=== PATIENT | female | born 1950 | race Caucasian/White ===

== ENCOUNTER 2023-04-29 17:53 | Emergency (ER) | payer BC, MEDICARE, SELFPAY ==
--- NOTE | 2023-04-29 18:04 | XR_ITS ---
The [address] [address] Patient Name: BRANDEN AMES MRN: [id number] date: 1950 Sex: F Assigned Patient Location: ED.MAIN Current Patient Location: ER Accession/Order Number: [id number] Exam Date: 04/29/2023 18:18 Report Date: 04/29/2023 18:43 At the request of: MICHAEL CARDOZO Procedure: XR hand RT min 3V EXAM: XR hand RT min 3V HISTORY: Hand pain COMPARISON: None. TECHNIQUE: 3 views FINDINGS: IMPRESSION: Dorsal subcutaneous soft tissue edema overlying the metacarpophalangeal joints/metacarpal heads. No visualized fracture, dislocation, subluxation or osseous lesion. Joint spaces are unremarkable for patient's age. Congenitally short fifth metacarpal. Electronically authenticated by: WALT PRESTON Date: 04/29/2023 18:43
[2023-04-29 18:05] VITALS: BP 126/68; PULSE 99; RESP 18; TEMP 36.8; O2SAT 98; BMI 21.8
--- NOTE | 2023-04-29 18:05 | ED_ITS ---
HPI - Extremity Injury (Upper) General Chief Complaint: Extremity Injury, Upper Stated Complaint: Right Hand Injury Time Seen by Provider: 04/29/23 17:54 History of Present Illness HPI narrative: patient is a 73-year-old female who presents to the emergency department for the evaluation of an injury to the right hand. She is right-hand dominant. Three days ago she struck the dorsum of her right hand on a plate accidentally. She has had pain and swelling over the 2nd, 3rd, 4th MCP joints. She denies any numbness or tingling to the hand. No other associated injuries. she takes an 81 mg aspirin daily, no other blood thinners. Related Data Home Medications Medication Instructions Recorded Confirmed aspirin 81 mg tablet,delayed 81 mg PO DAILY 04/29/23 04/29/23 release (Adult Aspirin Regimen) atenolol 25 mg tablet mg 04/29/23 simvastatin 40 mg tablet 40 mg PO DAILY 04/29/23 04/29/23 Allergies Allergy/AdvReac Type Severity Reaction Status Date / Time No Known Drug Allergies Allergy Verified 04/29/23 18:10 Review of Systems ROS Constitutional Denies: fever or chills Ears, nose, mouth, and throat Denies: throat pain Cardiovascular Denies: chest pain Respiratory Denies: shortness of breath or cough Gastrointestinal Denies: nausea or vomiting Musculoskeletal Reports: extremity pain and extremity swelling; Denies: back pain Integumentary/Breast Denies: rash Neurological Denies: headache Hematologic/Lymphatic Denies: easy bruising PFSH PFSH Social History Smoking status: Current every day smoker Exam Narrative Exam Narrative: Gen.: Awake, alert, in no distress Head: Normocephalic, atraumatic ENT: Moist mucous membranes Respiratory: No respiratory distress Extremities: Moves extremities equally, dorsum of the right hand with swelling and tenderness over the MCP joints of the 2nd, 3rd, 4th fingers. 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 No decrease in sensation to the fingertips. No tenderness of the proximal right hand or wrist. 2+ right radial pulse. Psych: Normal mood and affect Neuro: No focal neuro deficit Skin: Warm, dry, intact Constitutional Vital Signs, click to edit/add: Last Vital Signs Temp 98.2 F 04/29/23 18:05 Pulse 99 H 04/29/23 18:05 Resp 18 04/29/23 18:05 BP 126/68 04/29/23 18:05 Pulse Ox 98 04/29/23 18:05 O2 Del Method Room Air 04/29/23 18:05 Course Vital Signs Vital signs: Vital Signs Temperature 98.2 F 04/29/23 18:05 Pulse Rate 99 H 04/29/23 18:05 Respiratory Rate 18 04/29/23 18:05 Blood Pressure 126/68 04/29/23 18:05 Pulse Oximetry 98 04/29/23 18:05 Oxygen Delivery Method Room Air 04/29/23 18:05 Temperature 98.2 F 04/29/23 18:05 Pulse Rate 99 H 04/29/23 18:05 Respiratory Rate 18 04/29/23 18:05 Blood Pressure 126/68 04/29/23 18:05 Pulse Oximetry 98 04/29/23 18:05 Oxygen Delivery Method Room Air 04/29/23 18:05 MDM - Extremity Injury (Upper) MDM Narrative Medical decision making narrative: x-rays of the right hand with no evidence of fracture or dislocation. Patient placed in an Sanjay wrap and remains neurovascularly intact. Rest, ice, elevate. Follow-up with PCP and return to the Emergency Room if symptoms change or worsen. Medical Records Attestation: I reviewed the patient's medical records. Imaging Data XR hand: Attestation: I have reviewed the pertinent imaging results. Radiologist's impression: Procedure: XR hand RT min 3V EXAM: XR hand RT min 3V HISTORY: Hand pain COMPARISON: None. TECHNIQUE: 3 views FINDINGS: IMPRESSION: Dorsal subcutaneous soft tissue edema overlying the metacarpophalangeal joints/metacarpal heads. No visualized fracture, dislocation, subluxation or osseous lesion. Joint spaces are unremarkable for patient's age. Congenitally short fifth metacarpal. Electronically authenticated by: WALT PRESTON Date: 04/29/2023 18:43 Discharge Plan Discharge Chief Complaint: Extremity Injury, Upper Clinical Impression: Contusion of hand, right Patient Disposition: Home, Self-Care Time of Disposition Decision: 18:50 Condition: Good Prescriptions / Home Meds: No Action atenolol 25 mg tablet aspirin [Adult Aspirin Regimen] 81 mg tablet,delayed release (DR/EC) 81 mg PO DAILY simvastatin 40 mg tablet 40 mg PO DAILY Instructions: Contusion in Adults (ED) Stand Alone Forms: Portal Instructions Referrals: MILAD VALENZUELA [Primary Care Provider] - 1 week Discharge Date/Time: 04/29/23 19:11
== END 2023-04-29 19:11 | disposition home or self-care (01) ==
PROVIDERS: Emergency Provider Emergency Medicine; PCP Nurse Practitioner Family
DX: S60.221A Contusion of right hand, initial encounter (principal); W22.8XXA Striking against or struck by other objects, initial encounter; Z79.82 Long term (current) use of aspirin; F17.210 Nicotine dependence, cigarettes, uncomplicated
CPT/HCPCS: 73130; 99283

== ENCOUNTER 2024-03-27 12:04 | Outpatient (OUT) | payer MEDICARE, SELFPAY ==
--- OUTSIDE RECORDS SUMMARY | 2024-03-27 12:23 | XMS_ITS | CCD ---
Author Organization [facility] Care Team Providers Care Neonatal Intensive Care Unit Nurse Name Role Phone Joss Han Unavailable Unavailable Joss Han Unavailable Unavailable October, Shar Unavailable Unavailable Maritza Lake Unavailable Maritza Lake Unavailable MARITZA LAKE Primary Care Unavailable MARITZA LAKE Admitting Unavailable MARITZA LAKE Attending Unavailable MARITZA LAKE Consulting Unavailable MARITZA LAKE Primary Care Unavailable MISC, DR LUTZ Attending Unavailable MISC, DR LUTZ Consulting Unavailable MISC, DR LUTZ Admitting Unavailable LA MORA Attending Unavailable Shin Swanson Referring Unavailab Shin Christina Attending Unavailab Shin Christina Admitting Unavailab Maritza Mcmillan Primary Care Unavailable Medications Current Medications Medication Drug Class(es) Dates Sig (Normalized) Sig (Original) Aspir-81 81 MG (9 sources) take 1 tablet by mouth once daily Aspir-81 81 MG 1 tablet Orally Once a day Active atenolol 25 mg oral tablet (9 sources) beta-Adrenergic Jose Atenolol 25 MG one half tablet Orally Once a day for 90 days Active cholecalciferol 0.125 mg oral capsule (1 source) Vitamin D Vitamin D3 125 M CG (5000 UT) TAKE DIRECTED ONCE DAILY for 30 Active Handicap placards (2 sources) Start: 07-20-2022 Handicap placards as directed for Expires in 5 years Jul, Active Multivitamin Gummies Adult - (9 sources) Multivitamin Gummies Adult - Orally Active 10 ml ocrelizumab 30 mg/ml injection (1 source) Ocrevus 300 MG/10ML as directed Intravenous twice yearly Active predniSONE 20 mg oral tablet (7 sources) Start: 04-18-2021 predniSONE 20 MG 60 mg x 4 days, 40 mg x 4 days, and 20 mg x 4 days then 10 mg daily x 4 days then STOP Orally Once a day for 16 days Apr, Active simvastatin 40 mg oral tablet (9 sources) HMG-CoA Reductase Inhibitor take 1 tablet by mouth every twenty-four hours Simvastatin 40 MG 1 tablet in the evening Orally Once a day for 90 days Active Zeposia (7 sources) Zeposia Active Problems Active Problems Problem Classification Problem Date Documented Da te Episodic/Chronic Diabetes mellitus without complication (8 sources) Hyperglycemia, unspecified; Translations: [Prediabetes] Onset: 04-28-2021 Resolved: 01-11-2022 Episodic Disorders of lipid metabolism (20 sources) Mixed hyperlipidemia; Translations: [Mixed hyperlipidemia] Chronic Essential hypertension (11 sources) Benign essential hypertension; Translations: [Essential (primary) hypertension] Chronic Multiple sclerosis (17 sources) Multiple sclerosis; Translations: [Multiple sclerosis] Onset: 04-18-2021 Resolved: 04-18-2021 Chronic Nutritional deficiencies (1 source) Vitamin D deficiency; Translations: [Vitamin D deficiency, unspecified] Chronic Other screening for suspected conditions (not mental disorders or infectious disease) (4 sources) Encounter for screening for malignant neoplasm of colon; Translations: [Abnormal finding of blood chemistry, unspecified] Onset: 05-01-2021 Resolved: 06-24-2021 Episodic Residual codes; unclassified (9 sources) Body mass index 20-24 - normal; Translations: [Body mass index (BMI) 22.0-22.9, adult] Episodic Substance-related disorders (11 sources) Nicotine dependence; Translations: [Nicotine dependence, unspecified, uncomplicated] Chronic Past or Other Problems Problem Classification Problem Date Documented Da te Episodic/Chronic Fluid and electrolyte disorders (2 sources) Hypokalemia; Translations: [Hyperkalemia] Onset: 04-28-2021 Resolved: 06-24-2021 Episodic Other connective tissue disease (1 source) Pain in left leg Onset: 04-18-2021 Resolved: 04-18-2021 Episodic Unclassified (1 source) Low back pain, unspecified M54.50 Onset: 04-18-2021 Resolved: 04-18-2021 Results Test Name Value Interpretation Reference Range Facility CBC AUTO DIFFon 10-26-2022 BASO # 0.1 103/ul Normal 0.0-0.1 [facility] Comment on above: Performed By: #### CBC #### [facility] [address] [place] [address] Dr. Isai Ruelas Basophils/100 WBC (Bld) 0.5 % Normal 0.2-2.0 [facility] Comment on above: Performed By: #### CBC #### [facility] [address] [address] [address] Isai Ruelas EO # 0.2 103/ul Normal 0.0-0.7 [facility] Comment on above: Performed By: #### CBC #### [facility] [address] [place] [address] Dr. Isai Ruelas Eosinophils/1 00 WBC (Bld) 1.3 % Normal 0.9-7.0 [facility] Comment on above: Performed By: #### CBC #### [facility] [address] [place] [address] Dr. Isai Ruelas Erythrocyte distribution width (RBC) [Ratio] 13.4 % Normal 11.0-15.0 [facility] Comment on above: Performed By: #### CBC #### [facility] [address] [place] [address] Dr. Isai Ruelas Hematocrit (Bld) [Volume fraction] 42.6 % Normal 36.0-48.0 [facility] Comment on above: Performed By: #### CBC #### [facility] [address] [place] [address] Dr. Isai Ruelas Hemoglobin (Bld) [Mass/Vol] 14.4 g/dL Normal 12.0-16.0 [facility] Comment on above: Performed By: #### CBC #### [facility] [address] [place] [address] Dr. Isai Ruelas IG # 0.05 10e3/ul Critically high 0.00-0.03 [facility] Comment on above: Performed By: #### CBC #### [facility] [address] [place] [address] Dr. Isai Ruelas IG % 0.4 % Normal 0.0-0.5 [facility] Comment on above: Performed By: #### CBC #### [facility] [address] [place] [address] Dr. Isai Ruelas LYMPH # 2.2 103/ul Normal 1.2-3.8 [facility] Comment on above: Performed By: #### CBC #### [facility] [address] [place] [address] Dr. Isai Ruelas Lymphocytes/1 00 WBC (Bld) 19.0 % Critically low 20.5-60.0 [facility] Comment on above: Performed By: #### CBC #### [facility] [address] [place] [address] Dr. Isai Ruelas MANUAL DIFF REQ NO Normal [facility] Comment on above: Performed By: #### CBC #### [facility] [address] [place] [address] Dr. Iasi Ruelas MCH (RBC) [Entitic mass] 31.6 pg Normal 26.7-34.0 [facility] Comment on above: Performed By: #### CBC #### [facility] [address] [place] [address] Dr. Isai Ruelas MCHC (RBC) [Mass/Vol] 33.8 g/dL Normal 29.9-35.2 [facility] Comment on above: Performed By: #### CBC #### [facility] [address] [place] [address] Dr. Isai Ruelas MCV (RBC) [Entitic vol] 93.4 fL Normal 81.0-99.0 [facility] Comment on above: Performed By: #### CBC #### [facility] [address] [place] [address] Dr. Isai Ruelas MONO # 0.9 103/ul Critically high 0.3-0.8 [facility] Comment on above: Performed By: #### CBC #### [facility] [address] [place] [address] Dr. Isai Ruelas Monocytes/100 WBC (Bld) 8.1 % Normal 1.7-12.0 [facility] Comment on above: Performed By: #### CBC #### [facility] [address] [address] [address] Isai Ruelas NEUT # 8.0 103/ul Critically high 1.4-6.5 [facility] Comment on above: Performed By: #### CBC #### [facility] [address] [address] [address] Isai Ruelas Neutrophils/1 00 WBC (Bld) 70.7 % Normal 43.0-75.0 [facility] Comment on above: Performed By: #### CBC #### [facility] [address] [address] [address] Isai Ruelas Platelet mean volume (Bld) [Entitic vol] 10.5 fL Normal 9.5-13.5 [facility] Comment on above: Performed By: #### CBC #### [facility] [address] [place] [address] Dr. Isai Ruelas PLT 309 103/ul Normal 150-450 [facility] Comment on above: Performed By: #### CBC #### [facility] [address] [place] [address] Dr. Isai Ruelas RBC 4.56 106/ul Normal 4.20-5.40 [facility] Comment on above: Performed By: #### CBC #### [facility] [address] [place] [address] Dr. Isai Ruelas WBC 11.3 103/ul Critically high 4.0-11.0 [facility] Comment on above: Performed By: #### CBC #### [facility] [address] [place] [address] Dr. Isai Ruelas LIPID PROFILEon 10-26-2022 CHOL-HDL RATIO NORM SEE BELOW Normal [facility] Comment on above: Result Comment: 3.3 - 4.4 LOW RISK 4.4 - 7.1 AVERAGE RISK 7.1 - 11.0 MODERATE RISK >11.0 HIGH RISK Performed By: #### L IPID, TSH, CMP #### [facility] [address] [place] [address] Dr. Isai Ruelas Cholesterol [Mass/Vol] 161 mg/dL Normal <=200 [facility] Comment on above: Performed By: #### LIPID, TSH, CMP #### [facility] [address] [address] [address] Isai Ruelas Cholesterol in HDL [Mass/Vol] 79 mg/dL Critically high 40-60 [facility] Comment on above: Performed By: #### LIPID, TSH, CMP #### [facility] [address] [address] [address] Isai Ruelas Cholesterol in LDL [Mass/Vol] 71.8 mg/dL Normal [facility] Comment on above: Performed By: #### LIPID, TSH, CMP #### [facility] [address] [address] [address] Isai Ruelas Cholesterol.t otal/Choleste rol in HDL [Mass ratio] 2.0 {ratio} Normal [facility] Comment on above: Performed By: #### LIPID, TSH, CMP #### [facility] [address] [address] [address] Isai Ruelas HDL NORMAL > or = 60 mg/dl - LO W CARDIOVASCULAR RISK <40 mg/dl - HIGH CARDIOVASCULAR RISK Normal [facility] Comment on above: Performed By: #### LIPID, TSH, CMP #### [facility] [address] [place] [address] Dr. Isai Ruelas LDL CALC NORMAL SEE BELOW Normal [facility] Comment on above: Result Comment: <100 mg/dl OPTIMAL 100 - 129 mg/dl NEAR OR ABOVE OPTIMAL 130 - 159 mg/dl BORDERLINE HIGH 160 - 189 mg/dl HIGH >190 mg/dl VERY HIGH Performed By: #### L IPID, TSH, CMP #### [facility] [address] [address] [address] Isai Ruelas Triglyceride [Mass/Vol] 51 mg/dL Normal <=150 [facility] Comment on above: Performed By: #### LIPID, TSH, CMP #### [facility] [address] [address] [address] Isai Ruelas VLDL CALC 10.2 mg/dL Normal [facility] Comment on above: Performed By: #### LIPID, TSH, CMP #### [facility] [address] [place] [address] Dr. Isai Ruelas MICROALB CREAT RATIO RANDOMo n 10-26-2022 mALB 2.0 mg/dL Normal <=30.0 [facility] Comment on above: Performed By: #### MCRR #### [facility] [address] [place] [address] Dr. Isai Ruelas MALB CR RATIO 25.6 mg/g Normal 0.0-29.9 [facility] Comment on above: Performed By: #### MCRR #### [facility] [address] [place] [address] Dr. Isai Ruelas MALB CR RATIO RANGE SEE BELOW Normal [facility] Comment on above: Result Comment: NO MICROALBUMINURIA 0-29 MG/G CLINICAL MICROALBUMINURIA 30-300 MG/G MACROALBUMINURIA >300 MG/G Performed By: #### M CRR #### [facility] [address] [place] [address] Dr. Isai Ruelas URINE CREAT 78.16 mg/dL Normal 20.00-300. 00 [facility] Comment on above: Performed By: #### MCRR #### [facility] [address] [place] [address] Dr. Isai Ruelas PROF 14(COMP METB)on 023 Albumin [Mass/Vol] 3.8 g/dL Normal 3.4-5.0 [facility] Comment on above: Performed By: #### LIPID, TSH, CMP #### [facility] [address] [place] [address] Dr. Isai Ruelas Albumin/Globu gris [Mass ratio] 0.9 {ratio} Normal [facility] Comment on above: Performed By: #### LIPID, TSH, CMP #### [facility] [address] [place] [address] Dr. Isai Ruelas ALP [Catalytic activity/Vol] 104 U/L Normal 46-116 [facility] Comment on above: Performed By: #### LIPID, TSH, CMP #### [facility] [address] [place] [address] Dr. Isai uRelas ALT [Catalytic activity/Vol] 17 U/L Normal 14-59 [facility] Comment on above: Performed By: #### LIPID, TSH, CMP #### [facility] [address] [address] [address] Isai Ruelas Anion gap [Moles/Vol] 13.4 mmol/L Normal [facility] Comment on above: Performed By: #### LIPID, TSH, CMP #### [facility] [address] [address] [address] Isai Ruelas AST [Catalytic activity/Vol] 23 U/L Normal 15-37 [facility] Comment on above: Performed By: #### LIPID, TSH, CMP #### [facility] [address] [place] [address] Dr. Isai Ruelas Bilirubin [Mass/Vol] 0.6 mg/dL Normal 0.2-1.0 [facility] Comment on above: Performed By: #### LIPID, TSH, CMP #### [facility] [address] [place] [address] Dr. Isai Ruelas Calcium [Mass/Vol] 9.7 mg/dL Normal 8.5-10.1 [facility] Comment on above: Performed By: #### LIPID, TSH, CMP #### [facility] [address] [place] [address] Dr. Isai Ruelas Chloride [Moles/Vol] 106 mmol/L Normal 98-107 [facility] Comment on above: Performed By: #### LIPID, TSH, CMP #### [facility] [address] [place] [address] Dr. Isai Ruelas CO2 [Moles/Vol] 26.4 mmol/L Normal 21.0-32.0 [facility] Comment on above: Performed By: #### LIPID, TSH, CMP #### [facility] [address] [place] [address] Dr. Isai Ruelas Creatinine [Mass/Vol] 0.67 mg/dL Normal 0.55-1.02 [facility] Comment on above: Performed By: #### LIPID, TSH, CMP #### [facility] [address] [address] [address] Isai Ruelas EGFR-AF MARSHALLESE >60 Normal >=60 [facility] Comment on above: Performed By: #### LIPID, TSH, CMP #### [facility] [address] [address] [address] Isai Ruelas EGFR-NON AF MARSHALLESE >60 Normal >=60 [facility] Comment on above: Performed By: #### LIPID, TSH, CMP #### [facility] [address] [address] [address] Isai Ruelas Globulin (S) [Mass/Vol] 4.3 g/dL Normal [facility] Comment on above: Performed By: #### LIPID, TSH, CMP #### [facility] [address] [address] [address] Isai Ruelas Glucose [Mass/Vol] 95 mg/dL Normal 74-106 [facility] Comment on above: Performed By: #### LIPID, TSH, CMP #### [facility] [address] [address] [address] Isai Ruelas Potassium [Moles/Vol] 3.8 mmol/L Normal 3.5-5.1 [facility] Comment on above: Performed By: #### LIPID, TSH, CMP #### [facility] [address] [address] [address] Isai Ruelas Protein [Mass/Vol] 8.1 g/dL Normal 6.4-8.2 [facility] Comment on above: Performed By: #### LIPID, TSH, CMP #### [facility] [address] [address] [address] Isai Ruelas Sodium [Moles/Vol] 142 mmol/L Normal 136-145 [facility] Comment on above: Performed By: #### LIPID, TSH, CMP #### [facility] [address] [address] [address] Isai Ruelas Urea nitrogen [Mass/Vol] 15.0 mg/dL Normal 7.0-18.0 [facility] Comment on above: Performed By: #### LIPID, TSH, CMP #### [facility] [address] [address] [address] Isai Ruelas Urea nitrogen/Crea tinine [Mass ratio] 22.4 mg/mg Normal [facility] Comment on above: Performed By: #### LIPID, TSH, CMP #### [facility] [address] [place] [address] Dr. Isai Ruelas TSHon 10-26-2022 TSH 1.671 uIU/mL Normal 0.358-3.74 0 [facility] Comment on above: Performed By: #### LIPID, TSH, CMP #### [facility] [address] [place] [address] Dr. Isai Ruelas VIT B12 AND FOLATEon 023 Cobalamin (Vitamin B12) [Mass/Vol] 314.0 pg/mL Normal 193.0-986. 0 [facility] Comment on above: Performed By: #### B12FOL, VITAD #### [facility] [address] [place] [address] Dr. Isai Ruelas FOLATE 21.40 ng/mL Normal 8.60-58.90 [facility] Comment on above: Performed By: #### B12FOL, VITAD #### [facility] [address] [place] [address] Dr. Isai Ruelas VITAMIN D 25 OHon 10-26-2022 VIT D 25-OH 17.7 ng/mL Normal [facility] Comment on above: Performed By: #### B12FOL, VITAD #### [facility] [address] [place] [address] Dr. Isai Ruelas VIT D RANGES SEE BELOW Normal [facility] Comment on above: Result Comment: <20 ng/mL Vit D deficien t 20 - <30 ng/mL Vit D insufficient 30 - 100 ng/mL Vit D sufficient >100 ng/mL Potential Toxicity Performed By: #### B 12FOL, VITAD #### [facility] [address] [place] [address] Dr. Isai Ruelas A1C HEMOGLOBINon 07-20-2022 HbA1c (Bld) [Mass fraction] 5.7 % [facility] Other HbA1c (Bld) [Mass fraction]o n 02-06-2023 A1C HEMOGLOBIN [facility] Other CBC AUTO DIFFon 03-19-2022 BASO # 0.1 103/ul Normal 0.0-0.1 [facility] Comment on above: Performed By: #### CBC #### [facility] [address] [address] [address] Isai Ruelas Basophils/100 WBC (Bld) 0.6 % Normal 0.2-2.0 [facility] Comment on above: Performed By: #### CBC #### [facility] [address] [address] [address] Isai Ruelas EO # 0.1 103/ul Normal 0.0-0.7 [facility] Comment on above: Performed By: #### CBC #### [facility] [address] [place] [address] Dr. Isai Ruelas Eosinophils/1 00 WBC (Bld) 1.7 % Normal 0.9-7.0 [facility] Comment on above: Performed By: #### CBC #### [facility] [address] [address] [address] Isai Ruelas Erythrocyte distribution width (RBC) [Ratio] 13.0 % Normal 11.0-15.0 [facility] Comment on above: Performed By: #### CBC #### [facility] [address] [place] [address] Dr. Isai Ruelas Hematocrit (Bld) [Volume fraction] 40.9 % Normal 36.0-48.0 [facility] Comment on above: Performed By: #### CBC #### [facility] [address] [address] [address] Isai Ruelas Hemoglobin (Bld) [Mass/Vol] 13.3 g/dL Normal 12.0-16.0 [facility] Comment on above: Performed By: #### CBC #### [facility] [address] [address] [address] Isai Ruelas IG # 0.03 10e3/ul Normal 0.00-0.03 [facility] Comment on above: Performed By: #### CBC #### [facility] [address] [place] [address] Dr. Isai Ruelas IG % 0.4 % Normal 0.0-0.5 [facility] Comment on above: Performed By: #### CBC #### [facility] [address] [place] [address] Dr. Isai Ruelas LYMPH # 2.1 103/ul Normal 1.2-3.8 [facility] Comment on above: Performed By: #### CBC #### [facility] [address] [place] [address] Dr. Isai Ruelas Lymphocytes/1 00 WBC (Bld) 26.7 % Normal 20.5-60.0 [facility] Comment on above: Performed By: #### CBC #### [facility] [address] [place] [address] Dr. Isai Ruelas MANUAL DIFF REQ NO Normal [facility] Comment on above: Performed By: #### CBC #### [facility] [address] [place] [address] Dr. Isai Ruelas MCH (RBC) [Entitic mass] 30.9 pg Normal 26.7-34.0 [facility] Comment on above: Performed By: #### CBC #### [facility] [address] [place] [address] Dr. Isai Ruelas MCHC (RBC) [Mass/Vol] 32.5 g/dL Normal 29.9-35.2 [facility] Comment on above: Performed By: #### CBC #### [facility] [address] [place] [address] Dr. Isai Ruelas MCV (RBC) [Entitic vol] 94.9 fL Normal 81.0-99.0 [facility] Comment on above: Performed By: #### CBC #### [facility] [address] [place] [address] Dr. Isai Ruelas MONO # 0.8 103/ul Normal 0.3-0.8 [facility] Comment on above: Performed By: #### CBC #### [facility] [address] [place] [address] Dr. Isai Ruelas Monocytes/100 WBC (Bld) 10.6 % Normal 1.7-12.0 [facility] Comment on above: Performed By: #### CBC #### [facility] [address] [place] [address] Dr. Isai Ruelas NEUT # 4.6 103/ul Normal 1.4-6.5 [facility] Comment on above: Performed By: #### CBC #### [facility] [address] [place] [address] Dr. Isai Ruelas Neutrophils/1 00 WBC (Bld) 60.0 % Normal 43.0-75.0 [facility] Comment on above: Performed By: #### CBC #### [facility] [address] [place] [address] Dr. Isai Ruelas Platelet mean volume (Bld) [Entitic vol] 10.0 fL Normal 9.5-13.5 [facility] Comment on above: Performed By: #### CBC #### [facility] [address] [place] [address] Dr. Isai Ruelas PLT 283 103/ul Normal 150-450 [facility] Comment on above: Performed By: #### CBC #### [facility] [address] [place] [address] Dr. Isai Ruelas RBC 4.31 106/ul Normal 4.20-5.40 [facility] Comment on above: Performed By: #### CBC #### [facility] [address] [place] [address] Dr. Isai Ruelas WBC 7.7 103/ul Normal 4.0-11.0 [facility] Comment on above: Performed By: #### CBC #### [facility] [address] [place] [address] Dr. Isai Ruelas LIVER PROFILEon 03-19-2022 Albumin [Mass/Vol] 3.6 g/dL Normal 3.4-5.0 [facility] Comment on above: Performed By: #### BMP, LIVER #### [facility] [address] [place] [address] Dr. Isai Ruelas Albumin/Globu gris [Mass ratio] 1.2 {ratio} Normal [facility] Comment on above: Performed By: #### BMP, LIVER #### [facility] [address] [address] [address] Isai Ruelas ALP [Catalytic activity/Vol] 109 U/L Normal 46-116 [facility] Comment on above: Performed By: #### BMP, LIVER #### [facility] [address] [address] [address] Isai Ruelas ALT [Catalytic activity/Vol] 20 U/L Normal 14-59 [facility] Comment on above: Performed By: #### BMP, LIVER #### [facility] [address] [address] [address] Isai Ruelas AST [Catalytic activity/Vol] 14 U/L Critically low 15-37 [facility] Comment on above: Performed By: #### BMP, LIVER #### [facility] [address] [place] [address] Dr. Isai Ruelas BILI, CONJUGATED 0.1 mg/dL Normal 0.0-0.2 [facility] Comment on above: Performed By: #### BMP, LIVER #### [facility] [address] [place] [address] Dr. Isai Ruelas Bilirubin [Mass/Vol] 0.4 mg/dL Normal 0.2-1.0 [facility] Comment on above: Performed By: #### BMP, LIVER #### [facility] [address] [address] [address] Isai Ruelas Globulin (S) [Mass/Vol] 3.1 g/dL Normal [facility] Comment on above: Performed By: #### BMP, LIVER #### [facility] [address] [address] [address] Isai Ruelas Protein [Mass/Vol] 6.7 g/dL Normal 6.4-8.2 [facility] Comment on above: Performed By: #### BMP, LIVER #### [facility] [address] [place] [address] Dr. Isai Ruelas PROF CHEM 8 (BAS METB)on Anion gap [Moles/Vol] 10.2 mmol/L Normal [facility] Comment on above: Performed By: #### BMP, LIVER #### [facility] [address] [place] [address] Dr. Isai Ruelas Calcium [Mass/Vol] 9.1 mg/dL Normal 8.5-10.1 [facility] Comment on above: Performed By: #### BMP, LIVER #### [facility] [address] [place] [address] Dr. Isai Ruelas Chloride [Moles/Vol] 107 mmol/L Normal 98-107 [facility] Comment on above: Performed By: #### BMP, LIVER #### [facility] [address] [place] [address] Dr. Isai Ruelas CO2 [Moles/Vol] 29.7 mmol/L Normal 21.0-32.0 [facility] Comment on above: Performed By: #### BMP, LIVER #### [facility] [address] [place] [address] Dr. Isai Ruelas Creatinine [Mass/Vol] 0.68 mg/dL Normal 0.55-1.02 [facility] Comment on above: Performed By: #### BMP, LIVER #### [facility] [address] [place] [address] Dr. Isai Ruelas EGFR-AF MARSHALLESE >60 Normal >=60 [facility] Comment on above: Performed By: #### BMP, LIVER #### [facility] [address] [place] [address] Dr. Isai Ruelas EGFR-NON AF MARSHALLESE >60 Normal >=60 [facility] Comment on above: Performed By: #### BMP, LIVER #### [facility] [address] [place] [address] Dr. Isai Ruelas Glucose [Mass/Vol] 99 mg/dL Normal 74-106 [facility] Comment on above: Performed By: #### BMP, LIVER #### [facility] [address] [place] [address] Dr. Isai Ruelas Potassium [Moles/Vol] 3.9 mmol/L Normal 3.5-5.1 [facility] Comment on above: Performed By: #### BMP, LIVER #### [facility] [address] [place], [place] [address] Dr. Isai Ruelas Sodium [Moles/Vol] 143 mmol/L Normal 136-145 [facility] Comment on above: Performed By: #### BMP, LIVER #### [facility] [address] [place], [place] [address] Dr. Isai Ruelas Urea nitrogen [Mass/Vol] 21.0 mg/dL Critically high 7.0-18.0 [facility] Comment on above: Performed By: #### BMP, LIVER #### [facility] [address] [place], [place] [address] Dr. Isai Ruelas Urea nitrogen/Crea tinine [Mass ratio] 30.9 mg/mg Normal [facility] Comment on above: Performed By: #### BMP, LIVER #### [facility] [address] [place], [place] [address] Dr. Isai Ruelas ED Note-Physicianon 03-02-20 ED Note-Physicia n Patient: BRANDEN AMES Age: 67 years Sex: Female : 1950 Associated Diagnoses: None Author: Biju BALTAZAR, Desean Acharya Basic Information Time seen: Date & time 02/21/17 16:25:00. History source: Patient. Arrival mode: Private vehicle. History limitation: None. Additional information: Chief Complaint from Nursing Triage Note : Chief Complaint 02/21/2017 16:29 EDT Chief Complaint CO of blister to back of left heel that may be infected. Redness/warmth to left ankle. Pt states pain to area when touching. . History of Present Illness This is a pleasant 67-year-old female presents emergency department complaining of an infected blister to the posterior aspect of her left heel. Patient states that 2 weeks ago she was walking into shoes and developed a blister. A few days ago the blister started getting red. She denies any discharge. There is no red streaking. No fever or chills. She denies any other skin lesions or manifestations. Patient has no history of diabetes. No history of immunosuppression. No immunosuppressive medications. No history of poor wound healing. Review of Systems Complete review of systems otherwise negative unless stated in the HPI Health Status Allergies: Allergic Reactions (Selected)No Known Allergies. Past Medical/ Family/ Social History Medical history: No active or resolved past medical history items have been selected or recorded., Reviewed as documented in chart. Surgical history: No active procedure history items have been selected or recorded., Reviewed as documented in chart. Family history: No family history items have been selected or recorded., Reviewed as documented in chart. Social history: Social & Psychosocial HabitsNo Data Available, Patient works at a fci, Nonsmoker, no alcohol abuse. Problem list: No qualifying data available, per nurse's notes. Physical Examination Vital Signs Vital Signs 02/21/2017 16:29 EDT Temperature Oral 36.8 DegC Peripheral Pulse Rate 87 bpm Respiratory Rate 14 br/min Systolic Blood Pressure 145 mmHg HI Diastolic Blood Pressure 65 mmHg SpO2 98 % . Measurements 02/21/2017 16:29 EDT Height/Length Measured 157 cm Weight Measured 55.5 kg . Basic Oxygen Information 02/21/2017 16:29 EDT SpO2 98 % . General: Alert, no acute distress. Skin: Dry, no rash, normal for ethnicity, Patient has what appears to be infected blister to the posterior aspect of the left heel. No evidence of foreign body. Minimal erythema relegated to the blister site.Erythema is 2 x 2 centimeters. No discharge. No lymphangitis. Mild tenderness to touch., not cyanotic, not cool, not pale. Head: Normocephalic, atraumatic. Eye: Extraocular movements are intact. Cardiovascular: Regular rate and rhythm, No murmur, Normal peripheral perfusion, No edema. Respiratory: Lungs are clear to auscultation, respirations are non-labored, breath sounds are equal. Neurological: Alert and oriented to person, place, time, and situation, No focal neurological deficit observed, CN II-XII intact, normal sensory observed, normal motor observed, normal speech observed. Psychiatric: Cooperative, appropriate mood & affect. Medical Decision Making Differential Diagnosis: Skin rash, cellulitis. Rationale: Isolated blister to left heel with secondary mild infection. Documents reviewed: Emergency department nurses' notes. Orders Launch Order Profile (Selected) PrescriptionsPrescribeddoxycycline hyclate 100 mg Tab: 100 mg = 1 tab(s), Oral, Daily, X 10 day(s), # 10 tab(s), Refills(s) 0. Notes: Patient education wound care, patient education return and follow-up parameters.This case was discussed with the attending physician regarding diagnosis and disposition.. Reexamination/ Reevaluation Vital signs Basic Oxygen Information 02/21/2017 16:29 EDT SpO2 98 % Impression and Plan Diagnosis Blister of left heel with infection ([id number] S90.822A, Discharge, Medical) Plan Condition: Stable. Disposition: Discharged: Time 02/21/17 16:41:00, to home. Prescriptions: Launch prescriptions Pharmacy:doxycycline hyclate 100 mg Tab (Prescribe): 100 = 1 mg tab(s), Oral, Daily, X 10 day(s), # 10 tab(s), Refills(s) 0. Patient was given the following educational materials: Wound Care, Xdjw-hb-[id number]. Follow up with: Shar Collado In 3 days 02/24/2017 Continue with topical antibiotic ointment as discussed. Elevate the affected limb when possible. Apply warm compresses for 10-15 minutes at a time 4 times daily.The patient was advised to return to the ER immediately if symptoms worsen, problems arise, or any other issues develop. Ensure that you follow up as directed.Take the antibiotics as directed.. Counseled: Patient, Family, Regarding diagnosis, Regarding diagnostic results, Regarding treatment plan, Regarding prescription, Patient indicated understanding of instructions. Addendum Teaching-Supervisory Addendum-Brief I participated in the following activities of this patients care: the medical history, medical decision making. I personally performed: supervision of the patient's care. The case was discussed with: the physician commissary assistant. Results interpretation: I agree with the documentation of the study interpretation. Normal [facility] Comment on above: Result Comment: Electronically Signed By : Desean Ivy PA-C\.br\Date and Time Signed: 02/21/17 16:47 EDT\.br\Electronically Co-Signed By: Joss Han MD\.br\Date and Time Co-Signed: 03/02/17 00:24 EDT Coding Summary.on 02-25-2017 Coding Summary. CODING DATE: 02/25/2017 FINAL [facility] STATUS: Home (Routine DC) PAYOR: Commercial Insurance APC DESCRIPTION 5023 Level 3 Type A ED Visits ADMIT DX: REASON FOR VISIT DX: S90.822A Blister (nonthermal), left foot, initial encounter FINAL DX: PRINCIPAL: S90.822A Blister (nonthermal), left foot, initial encounter SECONDARY: PYMT PROC APC STAT DESCRIPTION DOCTOR NAME DATE NOTE: The code number assigned matches the documented diagnosis and / or procedure in the patient's chart. However, the narrative phrase printed from the coding software may appear abbreviated, or result in slightly different terminology. Coded By: Qing Jessica Date Saved: 02/25/2017 01:18 pm Normal [facility] Coding Summary. CODING DATE: 02/25/2017 FINAL [facility] STATUS: Home (Routine DC) PAYOR: Commercial Insurance ADMIT DX: REASON FOR VISIT DX: S90.822A Blister (nonthermal), left foot, initial encounter FINAL DX: PRINCIPAL: S90.822A Blister (nonthermal), left foot, initial encounter SECONDARY: PROCEDURES DOCTOR NAME DATE NOTE: The code number assigned matches the documented diagnosis and / or procedure in the patient's chart. However, the narrative phrase printed from the coding software may appear abbreviated, or result in slightly different terminology. Coded By: Qing Jessica Date Saved: 02/25/2017 01:18 pm Normal [facility] ED Clinical Summaryon 2016 ED Clinical Summary [place] [address] ED Clinical SummaryPerson Information Name: [facility] Age: 67 Years : 1950 12:00 AM Sex: Female Language:Portuguese PCP: Shar Collado MD Marital Status: Visit Id: Visit Reason:Skin problem; Wound infection - uncomplicated; INFECTED BLISTER ON LT HEEL Speciality: Acuity: 4 Enc Type: Emergency Med Service: Emergency Arrival:02/21/2017 4:24 PM Discharge: 02/21/2017 5:13 PM LOS: 000 00:49 Checkin:02/21/2017 4:24 PM Checkout: 02/21/2017 5:13 PM Dispo Type: Home (Routine DC) EVENTS:Event Name Event Status Request Date/Time Start Date/Time Complete Date/Time Arrive Complete 02/21/2017 4:24 PM 02/21/2017 4:24 PM 02/21/2017 4:24 PM Document Home Meds Request 02/21/2017 4:24 PM Triage Complete 02/21/2017 4:24 PM 02/21/2017 4:33 PM 02/21/2017 4:33 PM Bed Assign Complete 02/21/2017 4:33 PM 02/21/2017 4:33 PM 02/21/2017 4:[address] Exam Complete 02/21/2017 4:33 PM 02/21/2017 4:33 PM 02/21/2017 4:33 PM RN Exam Request 02/21/2017 4:33 PM Registration Complete 02/21/2017 4:33 PM 02/21/2017 4:38 PM 02/21/2017 4:38 PM Reg Complete Request 02/21/2017 4:38 PM Reg Bed Request Complete 02/21/2017 4:38 PM 02/21/2017 4:38 PM 02/21/2017 4:38 PM Discharge Complete 02/21/2017 4:43 PM 02/21/2017 5:13 PM 02/21/2017 5:13 PM Transfer Complete 02/21/2017 5:13 PM 02/21/2017 5:13 PM 02/21/2017 5:13 PM ADDRESS:[facility] [address] [facility] [id number] [facility] DOC NOTES: MEDICAL INFORMATION: Prescriptions Given:Prescription Display doxycycline (doxycycline hyclate 100 mg Tab) 100 mg = 1 tab(s), Oral, Daily, X 10 day(s), # 10 tab(s), Refills(s) 0 PATIENT EDUCATION INFORMATION: Instructions:Wound Care, Agyu-gv-Gauc Follow up:With: Address: When: [place] [place] [address] [employer] ([employer] In 3 days 02/24/2017 Comments: Continue with topical antibiotic ointment as discussed. Elevate the affected limb when possible. Apply warm compresses for 10-15 minutes at a time 4 times daily.The patient was advised to return to the ER immediately if symptoms worsen, problems arise, or any other issues develop. Ensure that you follow up as directed. Take the antibiotics as directed. DIAGNOSIS:Blister of left heel with infection Normal [facility] ED Patient Education Noteon 02-21-2017 ED Patient Education Note Patient Education Materials Follows:MedicineWound CareWound care helps prevent pain and infection. You may need a tetanus shot if:? You cannot remember when you had your last tetanus shot. ? You have never had a tetanus shot.? The injury broke your skin.If you need a tetanus shot and you choose not to have one, you may get tetanus. Sickness from tetanus can be serious.HOME CARE? Only take medicine as told by your doctor.? Clean the wound daily with mild soap and water.? Change any bandages (dressings) as told by your doctor.? Put medicated cream and a bandage on the wound as told by your doctor.? Change the bandage if it gets wet, dirty, or starts to smell.? Take showers. Do not take baths, swim, or do anything that puts your wound under water.? Rest and raise (elevate) the wound until the pain and puffiness (swelling) are better.? Keep all doctor visits as told.GET HELP RIGHT AWAY IF:? Yellowish-white fluid (pus) comes from the wound.? Medicine does not lessen your pain.? There is a red streak going away from the wound.? You have a fever.MAKE SURE YOU:? Understand these instructions.? Will watch your condition.? Will get help right away if you are not doing well or get worse.Document Released: 03/09/2009 Document Revised: 08/22/2012 Document Reviewed: 10/04/2011ExitCare? Patient Information ?2014 [employer]. This information is not intended to replace advice given to you by your health care provider. Make sure you discuss any questions you have with your health care provider. Normal [facility] ED Patient Summaryon 017 ED Patient Summary [address] [address] Patient Discharge Instructions Person Information Name: BRANDEN AMES Age: 67 Years Date: 02/21/2017 4:24 PMDischarge Diagnosis: Blister of left heel with infection Primary Care Physician: Shar Collado MD Provider InformationPrimary Provider: Physician Product Promoter Sales Person:None The exam and treatment you received in the Emergency Department were for an urgent problem and are not intended as complete care. It is important that you follow up with a doctor, nurse practitioner, or physician?s commissary assistant for ongoing care. If your symptoms become worse or you do not improve as expected and you are unable to reach your usual health care provider, you should return to the Emergency Department. We are available 24 hours a day. BRANDEN AMES has been given the following list of patient education materials, prescriptions and follow-up instructions: Follow-up Instructions:With: Address: When: [place] [address] [employer] ([employer] In 3 days 02/24/2017 Comments: Continue with topical antibiotic ointment as discussed. Elevate the affected limb when possible. Apply warm compresses for 10-15 minutes at a time 4 times daily.The patient was advised to return to the ER immediately if symptoms worsen, problems arise, or any other issues develop. Ensure that you follow up as directed. Take the antibiotics as directed. In the event that this physician does not participate in your insurance network, please consult with your insurance company to find a nearby participating provider. Patient Education Materials:Wound Care, Vfyo-la-Norm Medications Given:Medication Dose Route No medications found. Medication Information:New MedicationsPrinted Prescriptionsdoxycycline (doxycycline hyclate 100 mg Tab) 1 Tabs By Mouth every day for 10 Days. Refills: 0.Comment: Pharmacy Information: Thank you for choosing [facility] Patient Education Materials: Wound CareWound care helps prevent pain and infection. You may need a tetanus shot if:? You cannot remember when you had your last tetanus shot. ? You have never had a tetanus shot.? The injury broke your skin.If you need a tetanus shot and you choose not to have one, you may get tetanus. Sickness from tetanus can be serious.HOME CARE? Only take medicine as told by your doctor.? Clean the wound daily with mild soap and water.? Change any bandages (dressings) as told by your doctor.? Put medicated cream and a bandage on the wound as told by your doctor.? Change the bandage if it gets wet, dirty, or starts to smell.? Take showers. Do not take baths, swim, or do anything that puts your wound under water.? Rest and raise (elevate) the wound until the pain and puffiness (swelling) are better.? Keep all doctor visits as told.GET HELP RIGHT AWAY IF:? Yellowish-white fluid (pus) comes from the wound.? Medicine does not lessen your pain.? There is a red streak going away from the wound.? You have a fever.MAKE SURE YOU:? Understand these instructions.? Will watch your condition.? Will get help right away if you are not doing well or get worse.Document Released: 03/09/2009 Document Revised: 08/22/2012 Document Reviewed: 10/04/2011ExitCare? Patient Information ?2014 [employer]. This information is not intended to replace advice given to you by your health care provider. Make sure you discuss any questions you have with your health care provider.KWAKU Mcnulty BETSY , have received the following patient education materials/instructions and have verbalized understanding: Patient Education Materials: Wound Care, Aexl-dz-Jxtk Follow-up Instructions: With: Address: When: [place] [address] [employer] (1) In 3 days 02/24/2017 Comments: Continue with topical antibiotic ointment as discussed. Elevate the affected limb when possible. Apply warm compresses for 10-15 minutes at a time 4 times daily.The patient was advised to return to the ER immediately if symptoms worsen, problems arise, or any other issues develop. Ensure that you follow up as directed. Take the antibiotics as directed. Prescriptions: [doxycycline (doxycycline hyclate 100 mg Tab)] Patient Signature Date Clinician/Nurse Signature 02/21/17 17:13:17 [facility] Vital Signs Date Time Vital Sign Value Performing Clinician Facility 07-22-2023 10:30-0500 Body height 151.13 cm [facility] Other [facility] Other 07-22-2023 10:30-0500 Body mass index (BMI) [Ratio] 23.79 kg/m2 [facility] Other 07-22-2023 10:30-0500 Body weight 54.34 kg [facility] Other [facility] Other 07-22-2023 10:30-0500 Diastolic blood pressure 68 mm[Hg] [facility] Other [facility] Other 07-22-2023 10:30-0500 Respiratory rate 18 /min [facility] Other [facility] Other 07-22-2023 10:30-0500 SaO2% (BldA) [Mass fraction] 98 % [facility] Other [facility] Other 07-22-2023 10:30-0500 Systolic blood pressure 122 mm[Hg] [facility] Other [facility] Other 07-20-2022 11:15-0500 Body height 151.13 cm [facility]za [facility] Other [facility] Other 07-20-2022 11:15-0500 Body mass index (BMI) [Ratio] 24.11 kg/m2 [facility] Other [facility] Other 07-20-2022 11:15-0500 Body weight 55.07 kg [facility] Other [facility] Other 07-20-2022 11:15-0500 Diastolic blood pressure 70 mm[Hg] [facility] Other [facility] Other 07-20-2022 11:15-0500 Respiratory rate 18 /min [facility] Other [facility] Other 07-20-2022 11:15-0500 SaO2% (BldA) [Mass fraction] 98 % [facility] Other [facility] Other 07-20-2022 11:15-0500 Systolic blood pressure 130 mm[Hg] [facility] Other [facility] Other 04-18-2021 10:30-0400 Body height 151.13 cm [facility] Other [facility] Other 04-18-2021 10:30-0400 Body mass index (BMI) [Ratio] 24.33 kg/m2 [facility] Other [facility] Other 04-18-2021 10:30-0400 Body temperature 97.5 [degF] [facility] Other [facility] Other 04-18-2021 10:30-0400 Body weight 55.57 kg [facility] J[facility] Other [facility] Other 04-18-2021 10:30-0400 Diastolic blood pressure 70 mm[Hg] [facility] Other [facility] Other 04-18-2021 10:30-0400 Respiratory rate 18 /min [facility] Other [facility] Other 04-18-2021 10:30-0400 SaO2% (BldA) [Mass fraction] 98 % [facility] Other [facility] Other 04-18-2021 10:30-0400 Systolic blood pressure 120 mm[Hg] [facility] Other [facility] Other Encounters Encounter Date Encounter Type Care Provider Facility Start: 12-24-2023 ambulatory Shin Masterson acility:[facility] [place] Start: 12-06-2023 End: 12-06-2023 ambulatory LA MORA Not Available Start: 07-22-2023 End: 07-22-2023 ambulatory [facility] Other [facility] Other Start: 07-22-2023 Patient encounter procedure [facility] Janene Start: 10-26-2022 End: 10-27-2022 ambulatory [facility] [place] Facility: Start: 07-20-2022 End: 07-20-2022 ambulatory [facility] Other [facility] Other Start: 07-20-2022 Office outpatient visit 25 minutes [facility] Janene Start: 03-19-2022 End: 03-20-2022 ambulatory [place] [place] Facility: Start: 03-16-2022 End: 03-16-2022 ambulatory [facility] [place] Other [facility] Other Start: 03-16-2022 Telephone encounter [facility] [place] [facility] Start: 01-11-2022 End: 01-11-2022 ambulatory [facility] [place] Other [facility] Other Start: 01-11-2022 Telephone encounter [facility]za [place] [facility] Start: 06-24-2021 End: 06-24-2021 ambulatory [facility] [place] Other [facility] Other Start: 06-24-2021 Telephone encounter [facility]itza [facility] Start: 05-05-2021 End: 05-05-2021 ambulatory [facility] [place] Other [facility] Other Start: 05-05-2021 Telephone encounter Maritza [place] [facility] Start: 05-01-2021 End: 05-01-2021 ambulatory [facility] [place] Other [facility] Other Start: 05-01-2021 Telephone encounter [facility] [place] [facility] Start: 04-28-2021 End: 04-28-2021 ambulatory [facility] [place] Other [facility] Other Start: 04-28-2021 Telephone encounter [facility]za [facility] Start: 04-18-2021 End: 04-18-2021 ambulatory [facility] [place] Other [facility] Other Start: 04-18-2021 [facility] Start: 02-21-2017 End: 02-21-2017 Emergency department patient visit Joss Han Facility[place] Immunizations Immunization Date Immunization Notes Care Provider Benigno bob 09-12-2020 influenza, seasonal, injectable [facility] Other 04-26-2020 zoster vaccine, live [facility] Other [facility] Other Payers Date Payer Category Payer Self-pay 1957 Medicare [id number] 2.1 [id number] 1957 Unknown [id number] 1950 Unknown [id number] 1950 Unknown [id number] 1950 Unknown [id number] [id number] Unknown [id number] Social History Date Type Detail Facility Sex Assigned At [facility] Other Evaluation note 07-22-2023 Note Date & Type Note Facility 07-22-2023 Evaluation note Encounter Date Diagnosis Assessment Notes Jul, Medicare annual wellness visit, subsequent (ICD-10 - Z00.00) Personalized health advice was given to the beneficiary including a written plan for screenings discussed and provided. Advanced care planning reviewed and/or information given as requested. The above visit was performed by Donna Serna LPN IV-CC, under direct supervision of [facility] [place],DNP,PHOTOGRAPHIC LITHOGRAPHER,C URBAN PLANNING TEACHER. Document reviewed and amended by provider signed below. Jul, Benign essential hypertension (ICD-10 - I10) Blood pressure well controlled with Atenolol 12.5 mg daily. Patient declines lab work. Will continue current treatment plan. Take medication as prescribed, keep follow up appointments, get any testing that's been ordered done in a timely fashion. Do not smoke. Call if any questions or problems. For Hypertension: Patient is advised to work on healthy diet choices and appropriate servings, weight control, regular exercise as directed, and salt avoidance. Monitor blood pressures at home and call if above target. Jul, Mixed hyperlipidemia (ICD-10 - E78.2) Declines lab work. Currently controlled with Simvastatin 40 mg daily. Will continue this. Take medication as prescribed, keep follow up appointments, get any testing that's been ordered done in a timely fashion. Do not smoke. Call if any questions or problems. For Cholesterol: Patient is advised to work on healthy diet choices and appropriate servings, weight control, regular exercise as directed, and reduce fat intake. Jul, Prediabetes (ICD-10 - R73.03) Stable with hgba1c in the office today. Will continue current treatment plan. Patient is advised to work on healthy diet choices and appropriate servings, weight control, regular exercise as directed, reduced fat intake, and salt avoidance. Patient voiced understanding of this and agrees to this plan. Jul, Multiple sclerosis (ICD-10 - G35) Stable with medication. Continue to follow with MS doctor. Specialty notes reviewed when received. Jul, Nicotine dependence (ICD-10 - F17.200) Smoking cessation discussed and encouraged today. Patient not willing to quit at this time. Discussed with patient that she can contact the office for help with nicotine cessation if she is interested. Patient verbalizes understanding and agrees to treatment plan. Jul, Screening for colon cancer (ICD-10 - Z12.11) Patient due for screening colonoscopy, but would rather have cologuard. No personal history or family history of colon cancer. Cologuard ordered today. [facility] Other Evaluation note 07-20-2022 Note Date & Type Note Facility 07-20-2022 Evaluation note Encounter Date Diagnosis Assessment Notes Jul, Benign essential hypertension (ICD-10 - I10) Blood pressure well controlled with Atenolol 12.5 mg daily. Routine lab work ordered today. Will continue current treatment plan pending lab results. Refill sent today. Take medication as prescribed, keep follow up appointments, get any testing that's been ordered done in a timely fashion. Do not smoke. Call if any questions or problems. For Hypertension: Patient is advised to work on healthy diet choices and appropriate servings, weight control, regular exercise as directed, and salt avoidance. Monitor blood pressures at home and call if above target. Jul, Mixed hyperlipidemia (ICD-10 - E78.2) Routine lab work ordered today. Currently controlled with Simvastatin 40 mg daily. Will continue this pending lab results. Take medication as prescribed, keep follow up appointments, get any testing that's been ordered done in a timely fashion. Do not smoke. Call if any questions or problems. For Cholesterol: Patient is advised to work on healthy diet choices and appropriate servings, weight control, regular exercise as directed, and reduce fat intake. Jul, Prediabetes (ICD-10 - R73.03) Stable with hgba1c in the office today. Will continue current treatment plan. Other routine lab work ordered. Patient is advised to work on healthy diet choices and appropriate servings, weight control, regular exercise as directed, reduced fat intake, and salt avoidance. Patient voiced understanding of this and agrees to this plan. Jul, Multiple sclerosis (ICD-10 - G35) Stable with medication. Continue to follow with MS doctor. Specialty notes reviewed when received. Jul, Nicotine dependence (ICD-10 - F17.200) Smoking cessation discussed and encouraged today. Patient not willing to quit at this time. Discussed with patient that she can contact the office for help with nicotine cessation if she is interested. Patient verbalizes understanding and agrees to treatment plan. Jul, Screening for colon cancer (ICD-10 - Z12.11) Patient due for screening colonoscopy, but would rather have cologuard. No personal history or family history of colon cancer. Cologuard ordered today. [facility] Other Evaluation note 01-11-2022 Note Date & Type Note Facility 01-11-2022 Evaluation note Encounter Date Diagnosis Assessment Notes Dec, Prediabetes (ICD-10 - R73.03) [facility] Other Evaluation note 06-24-2021 Note Date & Type Note Facility 06-24-2021 Evaluation note Encounter Date Diagnosis Assessment Notes Jun, Hyperkalemia (ICD-10 - E87.5) 11 Jun, 2021 Elevated BUN (ICD-10 - R79.9) [facility] Other Evaluation note 05-01-2021 Note Date & Type Note Facility 05-01-2021 Evaluation note Encounter Date Diagnosis Assessment Notes Apr, Screening for colon cancer (ICD-10 - Z12.11) [facility] Other Evaluation note 04-28-2021 Note Date & Type Note Facility 04-28-2021 Evaluation note Encounter Date Diagnosis Assessment Notes Apr, High blood sugar (ICD-10 - R73.9) Apr, Hypokalemia (ICD-10 - E87.6) [facility] Other Evaluation note 04-18-2021 Note Date & Type Note Facility 04-18-2021 Evaluation note Encounter Date Diagnosis Assessment Notes Apr, Low back pain, unspecified (ICD-10 - M54.50) It seems likely that she has strained her back vs is having an MS flare up. Will put her on steroids to help with this and she is to call her neurologist with [facility] when she leaves her appointment TODAY and update them with her symptoms and if anything further is needed for treatment with this. She and her daughter state they will do this and will update our office as well. Warning s/s reviewed with patient today. Patient to go immediately to the ER should pt experience any of these. Patient verbalizes understanding and agrees to treatment plan. Apr, Pain in left leg (ICD-10 - M79.605) see above treatment plan. Apr, Multiple sclerosis (ICD-10 - G35) see above treatment plan. [facility] Other Evaluation note Note Date & Type Note Facility Evaluation note No Information [facility] Other History general Narrative - Reported Note Date & Type Note Facility History general Narrative - Reported Type Medical History hypertension Medical History high cholesterol Medical History cigarette abuse Medical History coronary artery disease Surgical History STENT PUT IN 2002 Surgical History TONSILS REMOVED Surgical History cataract surgery 11/2020 Hospitalization History SEE ABOVE [facility] Other Summary Purpose Family History No Family History Records FoundNo Family History Records FoundNo Family History Records FoundNo Family History Records Found Advance Directives No Advanced Directives Records FoundNo Advanced Directives Records FoundNo Advanced Directives Records FoundNo Advanced Directives Records Found Additional Source Comments INFORMATION SOURCE (unrecogn ized section and content) DATE CREATED AUTHOR 12/08/2017 [facility] DATE CREATED AUTHOR AUTHOR'S ORGANIZ ATION 10/27/2022 [facility] DATE CREATED AUTHOR AUTHOR'S ORGANIZ ATION 12/07/2023 [facility] EPIC DATE CREATED AUTHOR AUTHOR'S ORGANIZ ATION 12/30/2023 [facility] REASON FOR VISIT (unrecogniz ed section and content) PRIMO ER FOLLOW UP/BACK P AINlab resultscologuardLabslabslab resultscologuardMED REFILLS, [id number], hgba1c, cologuard FOR RECORDS PERTAINING TO PATIENTS WHO ARE OR HAVE BEEN ENROLLED IN A CHEMICAL DEPENDENCY/SUBSTANCEABUSE PROGRAM, SOME INFORMATION MAY BE OMITTED. This clinical summary was aggregated from multiple sources. Caution should be exercised in using it in the provision of clinical care. This summary normalizes information from multiple sources, and as a consequence, information in this document may materially change the coding, format and clinical context of patient data. In addition, data may be omitted in some cases. CLINICAL DECISIONS SHOULD BE BASED ON THE PRIMARY CLINICAL RECORDS. [facility] [employer] [facility]. provides no warranty or guarantee of the accuracy or completeness of information in this document.
[2024-03-27 12:41] LABS: Basophils Absolute Auto 0.1 10^3/uL (0.0-0.1); Basophils Percent Auto 0.6 % (0.2-2.0); Eosinophils Absolute Auto 0.1 10^3/uL (0.0-0.7); Eosinophils Percent Auto 0.8 % (0.9-7.0); Hematocrit 42.9 % (36.0-48.0); Hemoglobin 14.3 g/dL (12.0-16.0); Immature Granulocytes Abs Auto 0.03 10^3/uL (0.00-0.03); Immature Granulocytes Pct Auto 0.3 % (0.0-0.5); Lymphocytes Absolute Auto 2.3 10^3/uL (1.2-3.8); Lymphocytes Percent Auto 23.7 % (20.5-60.0); Mean Corpuscular HGB Conc 33.3 g/dL (29.9-35.2); Mean Corpuscular Hemoglobin 31.8 pg (26.7-34.0); Mean Corpuscular Volume 95.3 fL (81.0-99.0); Mean Platelet Volume 10.3 fL (9.5-13.5); Monocytes Absolute Auto 0.9 10^3/uL (0.3-0.8); Neutrophils Absolute Auto 6.4 10^3/uL (1.4-6.5); Neutrophils Percent Auto 65.6 % (43.0-75.0); Platelet Count 261 10^3/uL (150-450); Red Cell Distribution Width 12.7 % (11.0-15.0); White Blood Count 9.7 10^3/uL (4.0-11.0)
[2024-03-27 13:33] LABS: Alanine Aminotransferase 16 U/L (14-59); Albumin Globulin Ratio 1.1; Albumin Level 3.7 g/dL (3.4-5.0); Alkaline Phosphatase 104 U/L (46-116); Anion Gap 13.9; Aspartate Amino Transferase 18 U/L (15-37); BUN Creatinine Ratio 26.8; Bilirubin Total 0.5 mg/dL (0.2-1.0); Calcium 9.7 mg/dL (8.5-10.1); Carbon Dioxide 25.5 mmol/L (21.0-32.0); Chloride 109 mmol/L (98-107); Estimated GFR (African America >60 (>=60 mL/min/1.73m^2); Estimated GFR (Non-African Ame >60 (>=60 mL/min/1.73m^2); Globulin 3.3 g/dL; Glucose 82 mg/dL (74-106); Potassium 4.4 mmol/L (3.5-5.1); Sodium 144 mmol/L (136-145)
[2024-03-28 05:08] LABS: Immunoglobulin G, Qn 808 mg/dL (586-1602)
== END 2024-03-27 12:05 | disposition home or self-care (01) ==
LOC: LAB 12:09
PROVIDERS: PCP Nurse Practitioner Family; Visit Provider Nurse Practitioner Family
DX: Z51.81 Encounter for therapeutic drug level monitoring (principal)
CPT/HCPCS: 36415; 80053; 82784; 85025

== ENCOUNTER 2024-12-07 11:17 | Outpatient (OUT) | payer MEDICARE, SELFPAY ==
--- OUTSIDE RECORDS SUMMARY | 2024-12-07 11:18 | XMS_ITS | Clinical Summary ---
Author Organization [facility] Address [address] [place] [address] Care Team Providers Care Vehicle Trimmer Name Role Phone Jaya Maritza Margaret HOSTESS PARTY SALES REPRESENTATIVE Unavailable [phone] Allergies No known active allergies Medications DOCUSATE SODIUM PO Take by mouth Active simvastatin (Zocor) 40 MG tablet Take 40 mg by mouth at bedtime 08/17/2023 Active atenolol (Tenormin) 25 MG tablet Take by mouth Daily Active ocrelizumab (Ocrevus) 300 MG/10ML solution Infuse 600 mg into a venous catheter every 6 (six) months Active aspirin 81 MG EC tablet Take 81 mg by mouth Daily Active Active Problems Problem Noted Date Diagnosed Date Multiple sclerosis 12/01/2023 Overview (12/01/2023): Patient has relapsing remitting multiple sclerosis with demyelinating disease identified on the brain, cervical, and thoracic spine. The patient is BETTY virus positive. Otherwise laboratory evaluation is unremarkable. Pt has failed aubagio due to GI side effects. Pt failed aubagio as she felt very dizzy on this. Pt also failed zeopsia due to dizziness. April 2021 MRI of the brain and cervical spine showed active and worsening demyelination so we started her on Ocrevus which she has been tolerating well. Recent ALC was 2100. CMP was unremarkable. - PLAN: - Continue Ccrevus - MRI brain w/wo contrast; MRI cervical spine w/wo contrast - Risks including but not limited to opportunistic infection, infusion reaction, allergic reaction to medication, PML, increased risk of malignancy, and others discussed. Patient understands these risks and wishes to proceed. Leg weakness, bilateral 12/01/2023 Overview (12/01/2023): Leg weakness fluctuates, and was normal on exam today. Tremor 12/01/2023 Overview (12/01/2023): stable today Family History Medical History Relation Name Comments Hyperlipidemia Father Relation Name Status Comments Father Social History Tobacco Use Types Packs/Day Years Used Date Smoking Tobacco: Every Day Cigarettes Smokeless Tobacco: Never Tobacco Cessation:Ready to Q uit: Not Asked; Counseling Given: Not Answered Alcohol Use Standard Drinks/Week Comments Never 0 (1 standard drink = 0.6 oz pur e alcohol) Comments Unknown Sex and Gender Information Value Date Recorded Sex Assigned at Not on file Legal Sex Female 8:35 PM EDT Gender Identity Not on file Sexual Orientation Not on file Last Filed Vital Signs Vital Sign Reading Time Taken Comments Blood Pressure 118/64 05/24/2024 11:39 AM EST Pulse 78 12/06/2023 3:44 PM EDT Temperature - - Respiratory Rate - - Oxygen Saturation 97% 12/06/2023 3:44 PM EDT Inhaled Oxygen Concentration - - Weight 55.8 kg (123 lb) 05/24/2024 11:39 AM EST Height 157.5 cm (5' 2 ) 05/24/2024 11:39 AM EST Body Mass Index 22.5 05/24/2024 11:39 AM EST Plan of Treatment Health Maintenance Due Date Last Done Comments CT Colonography 1952 Colonoscopy 1952 FIT 1952 FOBT 1952 Sigmoidoscopy 1952 Mammogram 1992 Pneumococcal Vaccine: 65+ Years (1 of 1 - PCV) 002 Colorectal Cancer Screening 05/11/2021 FIT-DNA 05/11/2021 05/11/2018 Influenza Vaccine (Season Ended) 2025 Insurance [employer] Care Teams Vehicle Trimmer Relationship Specialty Start Date End Date Maritza Lake NP 11/15/23
--- OUTSIDE RECORDS SUMMARY | 2024-12-07 11:18 | XMS_ITS | Encounter Summary ---
Author Organization [facility] Address [facility] [place] [address] Care Team Providers Care Shirring Machine Operator Name Role Phone Self Primary Care Provider Unavailabl e Source Comments In the event this information is protected by the Federal Confidentiality of Alcohol and Drug AbusePatient Records regulations: The Federal rules restrict any use of the information to criminally investigate or prosecute any alcohol or drug abuse patient.[facility] Reason for Visit * Reason Comments Medication Preauthorization [employer] Encounter Details Date Type Department Care Team (Late st Contact Info) Description 03/06/2013 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 Faxed Start up form 03/03/2013. documented in this encounter Plan of Treatment Not on file documented as of this encounter Visit Diagnoses Not on filedocumented in this encounter Care Teams Shirring Machine Operator Relationship Specialty Start Date End Date Self PCP - General 01/31/13 documented as of this encounter
[2024-12-07 12:00] LABS: Basophils Percent Auto 0.6 % (0.2-2.0); Eosinophils Percent Auto 0.5 % (0.9-7.0); Hematocrit 42.7 % (36.0-48.0); Hemoglobin 14.3 g/dL (12.0-16.0); Immature Granulocytes Abs Auto 0.01 10^3/uL (0.00-0.03); Immature Granulocytes Pct Auto 0.2 % (0.0-0.5); Lymphocytes Absolute Auto 2.2 10^3/uL (1.2-3.8); Lymphocytes Percent Auto 34.2 % (20.5-60.0); Mean Corpuscular HGB Conc 33.5 g/dL (29.9-35.2); Mean Corpuscular Hemoglobin 30.8 pg (26.7-34.0); Mean Corpuscular Volume 91.8 fL (81.0-99.0); Mean Platelet Volume 10.6 fL (9.5-13.5); Monocytes Absolute Auto 0.6 10^3/uL (0.3-0.8); Monocytes Percent Auto 8.9 % (1.7-12.0); Neutrophils Absolute Auto 3.5 10^3/uL (1.4-6.5); Neutrophils Percent Auto 55.6 % (43.0-75.0); Platelet Count 258 10^3/uL (150-450); Red Blood Count 4.65 10^6/uL (4.20-5.40); Red Cell Distribution Width 12.5 % (11.0-15.0); White Blood Count 6.3 10^3/uL (4.0-11.0)
[2024-12-07 12:37] LABS: Alanine Aminotransferase 18 U/L (14-59); Albumin Level 3.4 g/dL (3.4-5.0); Alkaline Phosphatase 96 U/L (46-116); Anion Gap 10.2; Aspartate Amino Transferase 19 U/L (15-37); BUN Creatinine Ratio 30.3; Bilirubin Total 0.6 mg/dL (0.2-1.0); Calcium 9.3 mg/dL (8.5-10.1); Carbon Dioxide 29.8 mmol/L (21.0-32.0); Chloride 105 mmol/L (98-107); Estimated GFR (African America >60 (>=60 mL/min/1.73m^2); Estimated GFR (Non-African Ame >60 (>=60 mL/min/1.73m^2); Globulin 3.4 g/dL; Glucose 130 mg/dL (74-106); Sodium 141 mmol/L (136-145); Total Protein 6.8 g/dL (6.4-8.2)
[2024-12-08 05:07] LABS: Immunoglobulin G, Qn 790 mg/dL (586-1602)
== END 2024-12-07 11:18 | disposition home or self-care (01) ==
LOC: LAB 11:17
PROVIDERS: PCP Nurse Practitioner Family; Visit Provider Nurse Practitioner Family
DX: Z51.81 Encounter for therapeutic drug level monitoring (principal)
CPT/HCPCS: 36415; 80053; 82784; 85025

== ENCOUNTER 2025-03-23 08:25 | Outpatient (OUT) | payer MEDICARE, SELFPAY ==
--- OUTSIDE RECORDS SUMMARY | 2025-03-23 08:28 | XMS_ITS | CCD ---
Author Organization [facility] Team Providers Care Finisher Accordion Name Role Phone Joss Han Unavailable Unavailable Joss Han Unavailable Unavailable October, Shar Unavailable Unavailable Maritza Lake Unavailable Maritza Lake Unavailable MARITZA LAKE Primary Care Unavailable MARITZA LAKE Admitting Unavailable MARITZA LAKE Attending Unavailable MARITZA LAKE Consulting Unavailable MARITZA LAKE Primary Care Unavailable MISC, DR LUTZ Attending Unavailable MISC, DR LUTZ Consulting Unavailable MISC, DR LUTZ Admitting Unavailable Jaya MITER CUTTERMaritza Unavailable DeWilde DO, Dottie Primary Care Provider Blanca Swanson DO Attending Provider LA MORA Attending Unavailable BLANCA SWANSON Attending Unavailable LA MORA Attending Unavailable Blanca Swanson DO Referring Provider Blanca Swanson DO Attending Provider DeWilde DO, Dottie Primary Care Provider DeWitanyae DO, Dottie Attending Provider [phone] DeOzzye DO, Dottie Primary Care Provider Darryl SIEGEL-La CORNEJO Attending Provider Blanca Swanson DO Attending Provider [phone] Blanca Swanson DO Referring Provider DeWitanyae DO, Dottie Attending Provider [phone] Dottie Bolivar Admitting Unavailable Dottie Bolivar Attending Unavailable Blanca Swanson Admitting Unavailab Blanca Christina Attending Unavailab le AbdulazizDottie Cuenca Primary Care Unavailable Blanca Swanson Admitting Unavailab Blanca Christina Attending Unavailab Blanca Christina Referring Unavailab le Dottie Bolivar Primary Care Unavailable Medications Current Medications Medication Drug Class(es) Dates Sig (Normalized) Sig (Original) Aspir-81 81 MG (9 sources) take 1 tablet by mouth once daily Aspir-81 81 MG 1 tablet Orally Once a day Active aspirin 81 mg delayed release oral tablet (13 sources) Platelet Aggregation Inhibitor, Nonsteroidal Anti-inflammatory Drug Start: 07-24-2024 take 1 tablet by mouth once daily Aspirin 81 mg tablet,delayed release (DR/EC) Active 81 MG PO Daily July 24, 2024 1:00am FreeTextSi tablet Orally Once a day; Note: Source Status: Taking; Provider: Jaya Salas ( ) Complies with drug therapy take 1 tablet by mouth once barbie y aspirin 81 MG EC tablet Take 81 mg by mouth Daily Active atenolol 25 mg oral tablet (20 sources) beta-Adrenergic Jose Start: 08-31-2023 End: 08-14-2024 take 0.5 tablet by mouth once daily Atenolol 25 mg tablet Active 0 .ROUTE .COMPLEX 45 August 14, 2024 12:42pm TAKE 1/2 TABLET BY MOUTH ONCE DAILY Complies with drug therapy Start: 08-30-2023 End: 08-31-2023 Atenolol 25 mg tablet Discon tinued 25 MG PO Daily August 30, 2023 12:00am August 31, 2023 3:21am FreeTextSig: one half tablet Orally Once a day; Note: Source Status: Taking; Refills: 3; Provider: Jaya Robles cholecalciferol 0.125 mg ora l capsule (1 source) Vitamin D Vitamin D3 125 M CG (5000 UT) TAKE DIRECTED ONCE DAILY for 30 Active Docusate (8 sources) DOCUSATE SODIUM PO Take by mouth Active Handicap placards (2 sources) Start: 07-20-2022 Handicap placards as directed for Expires in 5 years Jul, Active Multivitamin Gummies Adult - (9 sources) Multivitamin Gum mies Adult - Orally Active 10 ml ocrelizumab 30 mg/ml injection (10 sources) Start: 11-29-2024 Ocrelizumab (Ocrevus) 30 mg/mL solution Active 600 MG IV EVERY 6 MONTHS November 29, 2024 12:00am Complies with drug therapy ocrelizumab (Ocr evus) 300 MG/10ML solution Infuse 600 mg into a venous catheter every 6 (six) months Active Ocrevus 300 MG/1 0ML as directed Intravenous twice yearly Active predniSONE 20 mg oral tablet (7 sources) Start: 04-18-2021 predniSONE 20 MG 60 mg x 4 days, 40 mg x 4 days, and 20 mg x 4 days then 10 mg daily x 4 days then STOP Orally Once a day for 16 days Apr, Active simvastatin 40 mg oral tablet (20 sources) HMG-CoA Reductase Inhibitor Start: 08-17-2023 take 1 tablet by mouth at bedtime simvastatin (Zocor) 40 MG tablet Take 40 mg by mouth at bedtime 08/17/2023 Active Start: 08-16-2023 End: 08-14-2024 take 1 tablet by mouth once daily in the evening Simvastatin 40 mg tablet Active 0 .ROUTE .COMPLEX August 14, 2024 12:42pm TAKE 1 TABLET BY MOUTH EVERY DAY IN THE EVENING FOR 90 DAYS Complies with drug therapy Start: 08-16-2023 End: 08-16-2023 take 1 tablet by mouth once daily in the evening Simvastatin 40 mg tablet Discontinued 1 TAB PO Daily August 16, 2023 1:00am August 16, 2023 8:57am FreeTextSi tablet in the evening Orally Once a day; Note: Source Status: Taking; Refills: 3; Qty: 90 Tablet; Provider: Jaya Robles take 1 tablet by christiano th every twenty-four hours Simvastatin 40 MG 1 tablet in the evening Orally Once a day for 90 days Active Zeposia (7 sources) Zeposia Active Problems Active Problems Problem Classification Problem Date Documented Date Episodic/Chronic Delirium, dementia, and amnestic and other cognitive disorders (4 sources) Cognitive disorder; 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] 06-05-2024 Chronic Diabetes mellitus without complication (18 sources) Hyperglycemia, unspecified; Translations: [Prediabetes] Onset: 04-28-2021 Resolved: 01-11-2022 Episodic Disorders of lipid metabolism (20 sources) Mixed hyperlipidemia; Translations: [Mixed hyperlipidemia] Chronic Essential hypertension (13 sources) Benign essential hypertension; Translations: [Essential (primary) hypertension] Chronic Multiple sclerosis (20 sources) Multiple sclerosis; Translations: [Multiple sclerosis] Onset: 04-18-2021 Resolved: 04-18-2021 Chronic Nutritional deficiencies (3 sources) Vitamin D deficiency; Translations: [Vitamin D deficiency, unspecified] 02-21-2025 Chronic Other aftercare (4 sources) Patient encounter status; Translations: [Encounter for therapeutic drug level monitoring] 05-24-2024 Episodic Other eye disorders (6 sources) Anisocoria; 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] 03-27-2024 Chronic Other screening for suspected conditions (not mental disorders or infectious disease) (4 sources) Encounter for screening for malignant neoplasm of colon; Translations: [Abnormal finding of blood chemistry, unspecified] Onset: 05-01-2021 Resolved: 06-24-2021 Episodic Other skin disorders (5 sources) Multiple actinic keratoses; Translations: [Actinic keratosis] 07-24-2024 Episodic Other skin disorders (5 sources) Seborrheic keratosis; Translations: [Other seborrheic keratosis] 07-24-2024 Episodic Other skin disorders (5 sources) Actinic keratosis; Translations: [Actinic keratosis] 07-24-2024 Episodic Other skin disorders (5 sources) Other seborrheic keratosis; Translations: [Other seborrheic keratosis] 07-24-2024 Episodic Residual codes; unclassified (9 sources) Body mass index 20-24 - normal; Translations: [Body mass index (BMI) 22.0-22.9, adult] Episodic Residual codes; unclassified (4 sources) Noncompliance with treatment; Translations: [Noncompliance] 06-05-2024 Episodic Residual codes; unclassified (8 sources) Procedure and treatment not carried out because of patient's decision for unspecified reasons; Translations: [Surgical or other procedure not carried out because of patient's decision] 07-24-2024 Episodic Residual codes; unclassified (3 sources) Immunization not carried out because of patient refusal; Translations: [Vaccination not carried out because of patient refusal] 07-24-2024 Episodic Residual codes; unclassified (1 source) Osteoporosis screening declined; Translations: [Procedure and treatment not carried out because of patient's decision for unspecified reasons] 02-21-2025 Episodic Residual codes; unclassified (1 source) Lung cancer screening declined; Translations: [Procedure and treatment not carried out because of patient's decision for unspecified reasons] 02-21-2025 Episodic Substance-related disorders (11 sources) Nicotine dependence; Translations: [Nicotine dependence, unspecified, uncomplicated] Chronic Past or Other Problems Problem Classification Problem Date Documented Date Episodic/Chronic Fluid and electrolyte disorders (2 sources) Hypokalemia; Translations: [Hyperkalemia] Onset: 04-28-2021 Resolved: 06-24-2021 Episodic Other connective tissue disease (1 source) Pain in left leg Onset: 04-18-2021 Resolved: 04-18-2021 Episodic Other connective tissue disease (8 sources) Other symptoms and signs involving the musculoskeletal system; Translations: [Other musculoskeletal symptoms referable to limbs] Onset: 12-01-2023 12-01-2023 Episodic Other nervous system disorders (8 sources) Tremor; Translations: [Tremor, unspecified] Onset: 12-01-2023 12-01-2023 Episodic Other skin disorders (1 source) Disorder of the skin and subcutaneous tissue, unspecified; Translations: [Disorder of the skin and subcutaneous tissue, unspecified] Onset: 08-01-2024 Episodic Unclassified (1 source) Low back pain, unspecified M54.50 Onset: 04-18-2021 Resolved: 04-18-2021 Results Test Name Value Interpretation Reference Range Facility Basophils Auto (Bld) [#/Vol] Ordered By: La Mora on 12-07-2024 Basophils (Bld) [#/Vol] 0.0 10 3/uL 0.0-0.1 [facility] Basophils/100 WBC Auto (Bld) Ordered By: La Mora on 12-07-2024 Basophils/100 WBC (Bld) 0.6 % 0.2-2.0 [facility] Eosinophils/100 WBC Auto (Bl d)Ordered By: La Mora on 12-07-2024 Eosinophils/100 WBC (Bld) 0.5 % Low 0.9-7.0 [facility] Erythrocyte distribution wid th Auto (RBC) [Ratio]Ordered By: La Mora on 12-07-2024 Erythrocyte distribution width (RBC) [Ratio] 12.5 % 11.0-15.0 [facility] Globulin Calc (S) [Mass/Vol] Ordered By: La Mora on 12-07-2024 Globulin (S) [Mass/Vol] 3.4 g/dL [facility] Glomerular filtration rate ( GFR) estimation in non- AmericanOrdered By: La Moar on 12-07-2024 GFR/1.73 sq M.predicted among non-blacks MDRD (S/P/Bld) [Vol rate/Area] mL/min/{1.73_m2} >=60 mL/min/1.7 3m 2 [facility] Hematocrit Auto (Bld) [Volum e fraction]Ordered By: La Mora on 12-07-2024 Hematocrit (Bld) [Volume fraction] 42.7 % 36.0-48.0 [facility] Hemoglobin [Mass/volume] in BloodOrdered By: La Mora on 12-07-2024 Hemoglobin (Bld) [Mass/Vol] 14.3 g/dL 12.0-16.0 [facility] IgG [Mass/volume] in Serum o r PlasmaOrdered By: La Mora on 12-07-2024 IgG [Mass/Vol] 790 mg/dL [phone] [facility] Comment on above: Performed at: [address] [id number] Director: Eric Hays PhD, Phone: [phone] Laboratory - Chemistry and C hemistry - challengeOrdered By: La Mora on 12-07-2024 Albumin [Mass/Vol] 3.4 g/dL 3.4-5.0 [facility] ALP [Catalytic activity/Vol] 96 U/L 46-116 [facility] ALT [Catalytic activity/Vol] 18 U/L 14-59 [facility] AST [Catalytic activity/Vol] 19 U/L 15-37 [facility] Bilirubin [Mass/Vol] 0.6 mg/dL 0.2-1.0 [facility] Calcium [Mass/Vol] 9.3 mg/dL 8.5-10.1 [facility] Chloride [Moles/Vol] 105 mmol/L 98-107 [facility] CO2 [Moles/Vol] 29.8 mmol/L 21.0-32.0 [facility] Creatinine [Mass/Vol] 0.66 mg/dL 0.55-1.02 [facility] GFR/1.73 sq M.predicted MDRD (S/P/Bld) [Vol rate/Area] mL/min/{1.73_m2} >=60 mL/min/1.7 3m 2 [facility] Glucose [Mass/Vol] 130 mg/dL High 74-106 [facility] Potassium [Moles/Vol] 4.0 mmol/L 3.5-5.1 [facility] Protein [Mass/Vol] 6.8 g/dL 6.4-8.2 [facility] Sodium [Moles/Vol] 141 mmol/L 136-145 [facility] Urea nitrogen [Mass/Vol] 20.0 mg/dL High 7.0-18.0 [facility] Urea nitrogen/Creatinine [Mass ratio] 30.3 mg/mg [facility] Laboratory - Hematology and Cell countsOrdered By: La Mora on 12-07-2024 Immature granulocytes/100 WBC (Bld) 0.2 % 0.0-0.5 [facility] Leukocytes [#/volume] correc giorgio for nucleated erythrocytes in Blood by Automated counOrdered By: La Mora on 12-07-2024 WBC corrected for nucl RBC Auto (Bld) [#/Vol] 6.3 10 3/uL 4.0-11.0 [facility] Lymphocytes Auto (Bld) [#/Vo l]Ordered By: La Mora on 12-07-2024 Lymphocytes (Bld) [#/Vol] 2.2 10 3/uL 1.2-3.8 [facility] Lymphocytes/100 WBC Auto (Bl d)Ordered By: La Mora on 12-07-2024 Lymphocytes/100 WBC (Bld) 34.2 % 20.5-60.0 [facility] MCH Auto (RBC) [Entitic mass ]Ordered By: La Mora on 12-07-2024 MCH (RBC) [Entitic mass] 30.8 pg 26.7-34.0 [facility] MCHC Auto (RBC) [Mass/Vol]Or dered By: La Mora on 12-07-2024 MCHC (RBC) [Mass/Vol] 33.5 g/dL 29.9-35.2 [facility] MCV Auto (RBC) [Entitic vol] Ordered By: La Mora on 12-07-2024 MCV (RBC) [Entitic vol] 91.8 fL 81.0-99.0 [facility] Monocytes Auto (Bld) [#/Vol] Ordered By: La Mora on 12-07-2024 Monocytes (Bld) [#/Vol] 0.6 10 3/uL 0.3-0.8 [facility] Monocytes/100 WBC Auto (Bld) Ordered By: La Mora on 12-07-2024 Monocytes/100 WBC (Bld) 8.9 % 1.7-12.0 [facility] Neutrophils Auto (Bld) [#/Vo l]Ordered By: La Mora on 12-07-2024 Neutrophils (Bld) [#/Vol] 3.5 10 3/uL 1.4-6.5 [facility] Neutrophils/100 WBC Auto (Bl d)Ordered By: La Mora on 12-07-2024 Neutrophils/100 WBC (Bld) 55.6 % 43.0-75.0 [facility] No Panel InformationOrdered By: La Mora on 12-07-2024 Eosinophils # (Auto) 0.0 10 3/uL 0.0-0.7 [facility] Immature Granulocyte # (Auto) 0.01 10 3/uL 0.00-0.03 [facility] Platelet mean volume Auto (B ld) [Entitic vol]Ordered By: La Mora on 12-07-2024 Platelet mean volume (Bld) [Entitic vol] 10.6 fL 9.5-13.5 [facility] Platelets Auto (Bld) [#/Vol] Ordered By: La Mora on 12-07-2024 Platelets (Bld) [#/Vol] 258 10 3/uL 150-450 [facility] RBC Auto (Bld) [#/Vol]Ordere d By: La Mora on 12-07-2024 RBC (Bld) [#/Vol] 4.65 10 6/uL 4.20-5.40 [facility] Serum or plasma albumin/glob ulin mass ratioOrdered By: La Mora on 12-07-2024 Albumin/Globulin [Mass ratio] 1.0 {ratio} [facility] Serum or plasma anion gap de terminationOrdered By: La Mora on 12-07-2024 Anion gap [Moles/Vol] 10.2 mmol/L [facility] 08-01-2024 L ------ Specimen: [id number] Received: 08/02/24 Status: PRASHANTH Jackson Num: [id number] Spec Type: Surgical Subm Dr: Dottie Bolivar DO Tissues: A Skin-Other than Cyst, tag, debridement or plastic repair (RIGHT UPPER CHEST) Procedures: BIRD, Blanco/La L4 Age/ Patient Sex Location Account Attending Physician FayeBranden butler Marck 74/F [place] [id number] Dottie Bolivar, DO SPEC NUM: [id number] RECD: 08/02/24 STATUS: JOAvtar JACKSON NUM: [id number] ILANA: 08/01/24-0000 [facility] DR: Dottie Bolivar DO ENTERED: 08/02/24 [facility] DR: GABRIELLA TYPE: Surgical DEPT: S ENTERED BY: [id number] RECV BY: [id number] ORDERED: HE, Gross/Micro L4 ORDERED: HE, Gross/Micro L4 Pathological Diagnosis Skin, right upper chest, shave biopsy: -Benign seborrheic keratosis of the marked hyperkeratotic, mildly reticulated, slightly pigmented, slightly irritated, and markedly inflamed types with some superimposed features of lichenoid keratosis -Incidental few small colonized foci of dermatophyte spores -The lesion also may be resembling verrucous skin tag, otherwise is adequately removed for assessment, and no evidence of malignancy, obvious squamous dysplasia, or any significant atypia identified Clinical Information Lesion on right upper chest Gross Description Part A is received in formalin labeled with the patients name, date of , and mole is a camilo-saunders, finely granular polypoid-like portion of skin, 1.1 x 1.2 x 0.5 cm. The specimen is inked black at the apparent point of attachment, serially sectioned, and entirely submitted in a single cassette. Fixation Time: Specimen: [id number] Received: 08/02/24 Status: PRASHANTH Jackson Num: [id number] Spec Type: Surgical Subm Dr: Dottie Bolivar DO Tissues: A Skin-Other than Cyst, tag, debridement or plastic repair (RIGHT UPPER CHEST) Procedures: Blanco PANG/La Interiano Patient: FayecarrieBranden [id number] (Continued) Specimen: [id number] Received: 08/02/24 (Continued) Gross Description (Continued) Signed (signature on file) Loan Ruelas MD 08/03/24 1226 Specimen: [id number] Received: 08/02/24 Status: PRASHANTH Jackson Num: [id number] Spec Type: Surgical Subm Dr: Dottie Bolivar DO Tissues: A Skin-Other than Cyst, tag, debridement or plastic repair (RIGHT UPPER CHEST) Procedures: BIRD, Gross/Micro L4 Patient: Branden Ames [id number] (Continued) Specimen: [id number] Received: 08/02/24 (Continued) Gross Description (Continued) Time specimen extracted: 1130 Time specimen placed in formalin: 1130 Cold ischemic time: Less than 1 minute Total fixation time: 30 hours and 30 minutes (1, ns, [id number] A) MalinaG Microscopic Description Microscopic examinations are performed supporting the above interpretation CPT Codes 45996 Specimen: [id number] Received: 08/02/24 Status: PRASHANTH Jackson Num: [id number] Spec Type: Surgical Subm Dr: Dottie Bolivar DO Tissues: A Skin-Other than Cyst, tag, debridement or plastic repair (RIGHT UPPER CHEST) Procedures: HE, Gross/Micro L4 Patient: Branden Ames [id number] (Continued) Signed (signature on file) Loan Ruelas MD 08/03/24 1226 Normal [facility] HbA1c HPLC (Bld) [Mass fract ion]on 07-24-2024 HbA1c (Bld) [Mass fraction] Hemoglobin A1c/Hemoglobin.total in Blood by HPLC [facility] MR head/brain wo/w conbashir MR head/brain wo/w con [place] [id number] MRI Report Signed Patient: Branden Ames MR#: [id number] : 1950 Acct:[id number] Age/Sex: 74 / F ADM Date: 04/25/24 Loc: MR Room: Type: [facility] Attending Dr: Blanca Swanson DO Copies to: Blanca Swanson DO Ordering Provider: Blanca Swanson DO Date of Service: 04/25/24 MR/MR head/brain wo/w con: G35 MR head/brain wo/w con 04/25/2024 4:15 PM SIGN AND SYMPTOMS: History of multiple sclerosis with progression of unsteady gait PROTOCOL: Multiplanar multisequence MR images of the brain were obtained with and without IV contrast CONTRAST: 10 mL of intravenous ProHance COMPARISON: 04/21/2021 FINDINGS: Extra axial spaces: Age appropriate. Hemorrhage: None. Ventricular system: Within normal limits. Basal cisterns: Within normal limits and not effaced. Cerebral parenchyma: There is worsening T2 and FLAIR hyperintense signal in the left frontal subcortical white matter and along the posterior limb of the left internal capsule, compared to the prior exam. There are additional T2 and FLAIR hyperintense foci bilaterally which are grossly stable compared to the prior exam. Similar T2 and FLAIR hyperintensities are noted in the callosal. There is no abnormal post contrast-enhancement. Diffusion restriction to suggest active consolidation. There has been interval resolution of enhancement in the right cerebral hemisphere. Midline shift: None.. Cerebellum: Similar T2 and FLAIR hyperintense foci are noted in the left cerebellar hemisphere. Brainstem: Similar T2 and FLAIR hyperintense foci are noted in the pontine white matter. OTHER: Calvarium: Normal marrow signal. Vascular system: Satisfactory flow voids within the anterior and posterior circulation. Visualized Paranasal sinuses: Within normal limits. Visualized Orbits: Within normal limits. Visualized upper cervical spine: Within normal limits. Sella and skull base: Within normal limits. MR/MR head/brain wo/w con IMPRESSION: Findings are consistent with multiple sclerosis with interval disease progression along the left frontal subcortical white matter and posterior limb of the left internal capsule. Interval resolution of enhancement in the right cerebral hemisphere. No diffusion restriction or abnormal postcontrast enhancement is noted in the current study to suggest active demyelination. Impression dictated by: Abhilash Cia M.D.04/25/2024 4:53 PM Dictation Location: [place] [address] Transcribed By: [facility] 04/25/24 1653 Dictated By: Abhilash Cai II, MD 04/25/24 1640 Signed By: 04/25/24 1653 Normal [facility] Magnetic resonance imaging r eportOrdered By: Abhilash Cai on 04-25-2024 Study report [facility] Main [address] [address] MRI Report Signed Patient: Branden Ames MR#: [id number] : 1950 Acct:[id number] Age/Sex: 74 / F ADM Date: 4 Loc: MR Room: Type: [facility] Attending Dr: Blanca Swanson DO Copies to: Blanca Swanson DO~ Ordering Provider: Blanca Swanson DO Date of Service: 04/25/24 MR/MR head/brain wo/w con: G35 MR head/brain wo/w con 04/25/2024 4:15 PM SIGN AND SYMPTOMS: History of multiple sclerosis with progression of unsteady gait PROTOCOL: Multiplanar multisequence MR images of the brain were obtained with and without IV contrast CONTRAST: 10 mL of intravenous ProHance COMPARISON: 04/21/2021 FINDINGS: Extra axial spaces: Age appropriate. Hemorrhage: None. Ventricular system: Within normal limits. Basal cisterns: Within normal limits and not effaced. Cerebral parenchyma: There is worsening T2 and FLAIR hyperintense signal in the left frontal subcortical white matter and along the posterior limb of the left internal capsule, compared to the prior exam. There are additional T2 and FLAIRhyperintense foci bilaterally which are grossly stable compared to the prior exam. Similar T2 and FLAIR hyperintensities are noted in the callosal. There is no abnormal post contrast-enhancement. Diffusion restriction to suggest active consolidation. There has been interval resolution of enhancement in the right cerebral hemisphere. Midline shift: None.. Cerebellum: Similar T2 and FLAIR hyperintense foci are noted in the left cerebellar hemisphere. Brainstem: Similar T2 and FLAIR hyperintense foci are noted in the pontine whitematter. OTHER: Calvarium: Normal marrow signal. Vascular system: Satisfactory flow voids within the anterior and posterior circulation. Visualized Paranasal sinuses: Within normal limits. Visualized Orbits: Within normal limits. Visualized upper cervical spine: Within normal limits. Sella and skull base: Within normal limits. MR/MR head/brain wo/w con IMPRESSION: Findings are consistent with multiple sclerosis with interval disease progression along the left frontal subcortical white matter and posterior limb of the left internal capsule. Interval resolution of enhancement in the right cerebral hemisphere. No diffusion restriction or abnormal postcontrast enhancement is noted in the current study to suggest active demyelination. Impression dictated by: Abhilash Cai M.D.04/25/2024 4:53 PM Dictation Location: [place] [address] Transcribed By: [facility] 04/25/241652 Dictated By: Abhilash Cai II, MD 04/25/24 1640 Signed By: 04/25/241652 [facility] Work Phone: ALL CBC WITH AUTO DIFFon BASOPHILS ABSOLUTE AUTO 0.1 [facility] Basophils/100 WBC (Bld) 0.6 % 0.2 - 2.0 % [facility] Eosinophils/100 WBC (Bld) 0.8 % Low 0.9 - 7.0 % [facility] Erythrocyte distribution width (RBC) [Ratio] 12.7 % 11.0 - 15.0 % [facility] Hematocrit (Bld) [Volume fraction] 42.9 % 36.0 - 48.0 % [facility] Hemoglobin (Bld) [Mass/Vol] 14.3 g/dL 12.0 - 16.0 g/dL [facility] IMMATURE GRANULOCYTES ABS AUTO 0.03 [facility] Immature granulocytes/100 WBC (Bld) 0.3 % 0.0 - 0.5 % [facility] Interpretation and review of laboratory results Abnormal [facility] LYMPHOCYTES ABSOLUTE AUTO 2.3 [facility] Lymphocytes/100 WBC (Bld) 23.7 % 20.5 - 60.0 % [facility] MCH (RBC) [Entitic mass] 31.8 pg 26.7 - 34.0 pg [facility] MCHC (RBC) [Mass/Vol] 33.3 g/dL 29.9 - 35.2 g/dL [facility] MCV (RBC) [Entitic vol] 95.3 fL 81.0 - 99.0 fL [facility] MONOCYTES ABSOLUTE AUTO 0.9 High [facility] Monocytes/100 WBC (Bld) 9 % 1.7 - 12.0 % [facility] NEUTROPHILS ABSOLUTE AUTO 6.4 NOMS [facility] Neutrophils/100 WBC (Bld) 65.6 % 43.0 - 75.0 % [facility] Platelet mean volume (Bld) [Entitic vol] 10.3 fL 9.5 - 13.5 fL [facility] TBH EO # 0.1 [facility] TB PLT 261 [facility] TBH RBC 4.5 [facility] WBC 9.7 [facility] CLINISYNC [facility] Basophils Auto (Bld) [#/Vol] on 03-27-2024 Basophils (Bld) [#/Vol] Automated basophil count 0.0-0.1 [facility] Basophils/100 WBC Auto (Bld) on 03-27-2024 Basophils/100 WBC (Bld) Automated basophil % 0.2-2.0 [facility] Eosinophils/100 WBC Auto (Bl d)on 03-27-2024 Eosinophils/100 WBC (Bld) Automated eosinophil % Low 0.9-7.0 [facility] Erythrocyte distribution wid th Auto (RBC) [Ratio]on 03-27-2024 Erythrocyte distribution width (RBC) [Ratio] Erythrocyte distribution width [Ratio] by Automated count 11.0-15.0 [facility] Estimated glomerular filtrat ion rate (GFR) non- Americanon 03-27-2024 GFR/1.73 sq M.predicted among non-blacks MDRD (S/P/Bld) [Vol rate/Area] Estimated glomerular filtration rate (GFR) non- >=60 mL/min/1.7 3m 2 [facility] Globulin Calc (S) [Mass/Vol] on 03-27-2024 Globulin (S) [Mass/Vol] Serum globulin measurement by calculation (mass/volume) [facility] Hematocrit Auto (Bld) [Volum e fraction]on 03-27-2024 Hematocrit (Bld) [Volume fraction] Hematocrit [Volume Fraction] of Blood by Automated count 36.0-48.0 [facility] Hemoglobin [Mass/volume] in Bloodon 03-27-2024 Hemoglobin (Bld) [Mass/Vol] Hemoglobin [Mass/volume] in Blood 12.0-16.0 [facility] IgG [Mass/volume] in Serum o r Plasmaon 03-27-2024 IgG [Mass/Vol] IgG [Mass/volume] in Serum or Plasma [phone] [facility] Comment on above: Performed at: CB - [address] [id number] Director: Eric Hays PhD, Phone: [phone] Laboratory - Chemistry and C hemistry - challengeon 03-27-2024 Albumin [Mass/Vol] 3.7 g/dL 3.4-5.0 [facility] ALP [Catalytic activity/Vol] 104 U/L 46-116 [facility] ALT [Catalytic activity/Vol] 16 U/L 14-59 [facility] AST [Catalytic activity/Vol] 18 U/L 15-37 [facility] Bilirubin [Mass/Vol] 0.5 mg/dL 0.2-1.0 [facility] Calcium [Mass/Vol] 9.7 mg/dL 8.5-10.1 [facility] Chloride [Moles/Vol] 109 mmol/L High 98-107 [facility] CO2 [Moles/Vol] 25.5 mmol/L 21.0-32.0 [facility] Creatinine [Mass/Vol] 0.71 mg/dL 0.55-1.02 [facility] GFR/1.73 sq M.predicted MDRD (S/P/Bld) [Vol rate/Area] mL/min/{1.73_m2} >=60 mL/min/1.7 3m 2 [facility] Glucose [Mass/Vol] 82 mg/dL 74-106 [facility] Potassium [Moles/Vol] 4.4 mmol/L 3.5-5.1 [facility] Protein [Mass/Vol] 7.0 g/dL 6.4-8.2 [facility] Sodium [Moles/Vol] 144 mmol/L 136-145 [facility] Urea nitrogen [Mass/Vol] 19.0 mg/dL High 7.0-18.0 [facility] Urea nitrogen/Creatinine [Mass ratio] 26.8 mg/mg [facility] Laboratory - Hematology and Cell countson 03-27-2024 Immature granulocytes/100 WBC (Bld) 0.3 % 0.0-0.5 [facility] Leukocytes [#/volume] correc giorgio for nucleated erythrocytes in Blood by Automated counon 03-27-2024 WBC corrected for nucl RBC Auto (Bld) [#/Vol] Leukocytes [#/volume] corrected for nucleated erythrocytes in Blood by Automated coun 4.0-11.0 [facility] Lymphocytes Auto (Bld) [#/Vo l]on 03-27-2024 Lymphocytes (Bld) [#/Vol] Lymphocytes [#/volume] in Blood by Automated count 1.2-3.8 [facility] Lymphocytes/100 WBC Auto (Bl d)on 03-27-2024 Lymphocytes/100 WBC (Bld) Lymphocytes/100 leukocytes in Blood by Automated count 20.5-60.0 [facility] MCH Auto (RBC) [Entitic mass ]on 03-27-2024 MCH (RBC) [Entitic mass] MCH [Entitic mass] by Automated count 26.7-34.0 [facility] MCHC Auto (RBC) [Mass/Vol]on 03-27-2024 MCHC (RBC) [Mass/Vol] MCHC [Mass/volume] by Automated count 29.9-35.2 [facility] MCV Auto (RBC) [Entitic vol] on 03-27-2024 MCV (RBC) [Entitic vol] MCV [Entitic volume] by Automated count 81.0-99.0 [facility] Monocytes Auto (Bld) [#/Vol] on 03-27-2024 Monocytes (Bld) [#/Vol] Automated blood monocyte count High 0.3-0.8 [facility] Monocytes/100 WBC Auto (Bld) on 03-27-2024 Monocytes/100 WBC (Bld) Automated monocyte % 1.7-12.0 [facility] Neutrophils Auto (Bld) [#/Vo l]on 03-27-2024 Neutrophils (Bld) [#/Vol] Neutrophils [#/volume] in Blood by Automated count 1.4-6.5 [facility] Neutrophils/100 WBC Auto (Bl d)on 03-27-2024 Neutrophils/100 WBC (Bld) Automated neutrophil % 43.0-75.0 [facility] No Panel Informationon 03-27 Eosinophils # (Auto) 0.1 10 3/uL 0.0-0.7 [facility] Immature Granulocyte # (Auto) 0.03 10 3/uL 0.00-0.03 [facility] Platelet mean volume Auto (B ld) [Entitic vol]on 03-27-2024 Platelet mean volume (Bld) [Entitic vol] Platelet mean volume [Entitic volume] in Blood by Automated count 9.5-13.5 [facility] Platelets Auto (Bld) [#/Vol] on 03-27-2024 Platelets (Bld) [#/Vol] Platelets [#/volume] in Blood by Automated count 150-450 [facility] RBC Auto (Bld) [#/Vol]on RBC (Bld) [#/Vol] Erythrocytes [#/volu me] in Blood by Automated count 4.20-5.40 [facility] Serum or plasma albumin/glob ulin mass ratioon 03-27-2024 Albumin/Globulin [Mass ratio] Serum or plasma albumin/globulin mass ratio [facility] Serum or plasma anion gap de terminationon 03-27-2024 Anion gap [Moles/Vol] Serum or plasma an ion gap determination [facility] CBC AUTO DIFFon 10-26-2022 BASO # 0.1 103/ul Normal 0.0-0.1 [facility] Comment on above: Performed By: #### C BC #### [facility] [address] [place] [address] Dr. Isai Ruelas Basophils/100 WBC (Bld) 0.5 % Normal 0.2-2.0 [facility] Comment on above: Performed By: #### C BC #### [facility] [address] [address] [address] Isai Ruelas EO # 0.2 103/ul Normal 0.0-0.7 [facility] Comment on above: Performed By: #### C BC #### [facility] [address] [address] [address] Isai Ruelas Eosinophils/100 WBC (Bld) 1.3 % Normal 0.9-7.0 [facility] Comment on above: Performed By: #### C BC #### [facility] [address] [address] [address] Isai Ruelas Erythrocyte distribution width (RBC) [Ratio] 13.4 % Normal 11.0-15.0 [facility] Comment on above: Performed By: #### C BC #### [facility] [address] [address] [address] Isai Ruelas Hematocrit (Bld) [Volume fraction] 42.6 % Normal 36.0-48.0 [facility] Comment on above: Performed By: #### C BC #### [facility] [address] [address] [address] Isai Ruelas Hemoglobin (Bld) [Mass/Vol] 14.4 g/dL Normal 12.0-16.0 [facility] Comment on above: Performed By: #### C BC #### [facility] [address] [place] [address] Dr. Isai Ruelas IG # 0.05 10e3/ul Critically high 0.00-0.03 [facility] Comment on above: Performed By: #### C BC #### [facility] [address] [place] [address] Dr. Isai Ruelas IG % 0.4 % Normal 0.0-0.5 [facility] Comment on above: Performed By: #### C BC #### [facility] [address] [address] [address] Isai Ruelas LYMPH # 2.2 103/ul Normal 1.2-3.8 [facility] Comment on above: Performed By: #### C BC #### [facility] [address] [place] [address] Dr. Isai Ruelas Lymphocytes/100 WBC (Bld) 19.0 % Critically low 20.5-60.0 [facility] Comment on above: Performed By: #### C BC #### [facility] [address] [place] [address] Dr. Isai Ruelas MANUAL DIFF REQ NO Normal [facility] Comment on above: Performed By: #### C BC #### [facility] [address] [address] [address] Isai Ruelas MCH (RBC) [Entitic mass] 31.6 pg Normal 26.7-34.0 [facility] Comment on above: Performed By: #### C BC #### [facility] [address] [place] [address] Dr. Isai Ruelas MCHC (RBC) [Mass/Vol] 33.8 g/dL Normal 29.9-35.2 [facility] Comment on above: Performed By: #### C BC #### [facility] [address] [place] [address] Dr. Isai Ruelas MCV (RBC) [Entitic vol] 93.4 fL Normal 81.0-99.0 [facility] Comment on above: Performed By: #### C BC #### [facility] [address] [place] [address] Dr. Isai Ruelas MONO # 0.9 103/ul Critically high 0.3-0.8 [facility] Comment on above: Performed By: #### C BC #### [facility] [address] [place] [address] Dr. Isai Ruelas Monocytes/100 WBC (Bld) 8.1 % Normal 1.7-12.0 [facility] Comment on above: Performed By: #### C BC #### [facility] [address] [place] [address] Dr. Isai Ruelas NEUT # 8.0 103/ul Critically high 1.4-6.5 [facility] Comment on above: Performed By: #### C BC #### [facility] [address] [place] [address] Dr. Isai Ruelas Neutrophils/100 WBC (Bld) 70.7 % Normal 43.0-75.0 [facility] Comment on above: Performed By: #### C BC #### [facility] [address] [place] [address] Dr. Isai Ruelas Platelet mean volume (Bld) [Entitic vol] 10.5 fL Normal 9.5-13.5 [facility] Comment on above: Performed By: #### C BC #### [facility] [address] [address] [address] Isai Ruelas PLT 309 103/ul Normal 150-450 [facility] Comment on above: Performed By: #### C BC #### [facility] [address] [address] [address] Isai Ruelas RBC 4.56 106/ul Normal 4.20-5.40 [facility] Comment on above: Performed By: #### C BC #### [facility] [address] [address] [address] Isai Ruelas WBC 11.3 103/ul Critically high 4.0-11.0 [facility] Comment on above: Performed By: #### C BC #### [facility] [address] [place] [address] Dr. Isai Ruelas LIPID PROFILEon 10-26-2022 CHOL-HDL RATIO NORM SEE BELOW Normal [facility] Comment on above: Result Comment: 3.3 - 4.4 LOW RISK 4.4 - 7.1 AVERAGE RISK 7.1 - 11.0 MODERATE RISK >11.0 HIGH RISK Performed By: #### L IPID, TSH, CMP #### [facility] [address] [place] [address] Dr. Isai Ruelas Cholesterol [Mass/Vol] 161 mg/dL Normal <=200 [facility] Comment on above: Performed By: #### L IPID, TSH, CMP #### [facility] [address] [place] [address] Dr. Isai Ruelas Cholesterol in HDL [Mass/Vol] 79 mg/dL Critically high 40-60 [facility] Comment on above: Performed By: #### L IPID, TSH, CMP #### [facility] [address] [place] [address] Dr. Isai Ruelas Cholesterol in LDL [Mass/Vol] 71.8 mg/dL Normal [facility] Comment on above: Performed By: #### L IPID, TSH, CMP #### [facility] [address] [place] [address] Dr. Isai Ruelas Cholesterol.total/Cho lesterol in HDL [Mass ratio] 2.0 {ratio} Normal [facility] Comment on above: Performed By: #### L IPID, TSH, CMP #### [facility] [address] [address] [address] Isai Ruelas HDL NORMAL > or = 60 mg/dl - LO W CARDIOVASCULAR RISK <40 mg/dl - HIGH CARDIOVASCULAR RISK Normal [facility] Comment on above: Performed By: #### L IPID, TSH, CMP #### [facility] [address] [address] [address] Isai Ruelas LDL CALC NORMAL SEE BELOW Normal [facility] Comment on above: Result Comment: <100 mg/dl OPTIMAL 100 - 129 mg/dl NEAR OR ABOVE OPTIMAL 130 - 159 mg/dl BORDERLINE HIGH 160 - 189 mg/dl HIGH >190 mg/dl VERY HIGH Performed By: #### L IPID, TSH, CMP #### [facility] [address] [address] [address] Isai Ruelas Triglyceride [Mass/Vol] 51 mg/dL Normal <=150 [facility] Comment on above: Performed By: #### L IPID, TSH, CMP #### [facility] [address] [address] [address] Isai Ruelas VLDL CALC 10.2 mg/dL Normal [facility] Comment on above: Performed By: #### L IPID, TSH, CMP #### [facility] [address] [address] [address] Isai Ruelas MICROALB CREAT RATIO RANDOMo n 10-26-2022 mALB 2.0 mg/dL Normal <=30.0 [facility] Comment on above: Performed By: #### M CRR #### [facility] [address] [address] [address] Isai Ruelas MALB CR RATIO 25.6 mg/g Normal 0.0-29.9 [facility] Comment on above: Performed By: #### M CRR #### [facility] [address] [address] [address] Isai Ruelas MALB CR RATIO RANGE SEE BELOW Normal [facility] Comment on above: Result Comment: NO M ICROALBUMINURIA 0-29 MG/G CLINICAL MICROALBUMINURIA 30-300 MG/G MACROALBUMINURIA >300 MG/G Performed By: #### M CRR #### [facility] [address] [address] [address] Isai Ruelas URINE CREAT 78.16 mg/dL Normal 20.00-300. 00 [facility] Comment on above: Performed By: #### M CRR #### [facility] [address] [address] [address] Isai Ruelas PROF 14(COMP METB)on 023 Albumin [Mass/Vol] 3.8 g/dL Normal 3.4-5.0 [facility] Comment on above: Performed By: #### L IPID, TSH, CMP #### [facility] [address] [place] [address] Dr. Isai Ruelas Albumin/Globulin [Mass ratio] 0.9 {ratio} Normal [facility] Comment on above: Performed By: #### L IPID, TSH, CMP #### [facility] [address] [place] [address] Dr. Isai Ruelas ALP [Catalytic activity/Vol] 104 U/L Normal 46-116 [facility] Comment on above: Performed By: #### L IPID, TSH, CMP #### [facility] [address] [place] [address] Dr. Isai Ruelas ALT [Catalytic activity/Vol] 17 U/L Normal 14-59 [facility] Comment on above: Performed By: #### L IPID, TSH, CMP #### [facility] [address] [place] [address] Dr. Isai Ruelas Anion gap [Moles/Vol] 13.4 mmol/L [facility] Comment on above: Performed By: #### L IPID, TSH, CMP #### [facility] [address] [place] [address] Dr. Isai Ruelas AST [Catalytic activity/Vol] 23 U/L Normal 15-37 [facility] Comment on above: Performed By: #### L IPID, TSH, CMP #### [facility] [address] [address] [address] Isai Ruelas Bilirubin [Mass/Vol] 0.6 mg/dL Normal 0.2-1.0 [facility] Comment on above: Performed By: #### L IPID, TSH, CMP #### [facility] [address] [address] [address] Isai Ruelas Calcium [Mass/Vol] 9.7 mg/dL Normal 8.5-10.1 [facility] Comment on above: Performed By: #### L IPID, TSH, CMP #### [facility] [address] [address] [address] Isai Ruelas Chloride [Moles/Vol] 106 mmol/L Normal 98-107 [facility] Comment on above: Performed By: #### L IPID, TSH, CMP #### [facility] [address] [place] [address] Dr. Isai Ruelas CO2 [Moles/Vol] 26.4 mmol/L Normal 21.0-32.0 [facility] Comment on above: Performed By: #### L IPID, TSH, CMP #### [facility] [address] [place] [address] Dr. Isai Ruelas Creatinine [Mass/Vol] 0.67 mg/dL Normal 0.55-1.02 [facility] Comment on above: Performed By: #### L IPID, TSH, CMP #### [facility] [address] [place] [address] Dr. Isai Ruelas EGFR-AF CROATIAN >60 Normal >=60 [facility] Comment on above: Performed By: #### L IPID, TSH, CMP #### [facility] [address] [place] [address] Dr. Isai Ruelas EGFR-NON AF CROATIAN >60 Normal >=60 [facility] Comment on above: Performed By: #### L IPID, TSH, CMP #### [facility] [address] [place] [address] Dr. Isai Ruelas Globulin (S) [Mass/Vol] 4.3 g/dL Normal [facility] Comment on above: Performed By: #### L IPID, TSH, CMP #### [facility] [address] [address] [address] Isai Ruelas Glucose [Mass/Vol] 95 mg/dL Normal 74-106 [facility] Comment on above: Performed By: #### L IPID, TSH, CMP #### [facility] [address] [place] [address] Dr. Isai Ruelas Potassium [Moles/Vol] 3.8 mmol/L Normal 3.5-5.1 [facility] Comment on above: Performed By: #### L IPID, TSH, CMP #### [facility] [address] [place] [address] Dr. Isai Ruelas Protein [Mass/Vol] 8.1 g/dL Normal 6.4-8.2 [facility] Comment on above: Performed By: #### L IPID, TSH, CMP #### [facility] [address] [place] [address] Dr. Isai Ruelas Sodium [Moles/Vol] 142 mmol/L Normal 136-145 [facility] Comment on above: Performed By: #### L IPID, TSH, CMP #### [facility] [address] [place] [address] Dr. Isai Ruelas Urea nitrogen [Mass/Vol] 15.0 mg/dL Normal 7.0-18.0 [facility] Comment on above: Performed By: #### L IPID, TSH, CMP #### [facility] [address] [place] [address] Dr. Isai Ruelas Urea nitrogen/Creatinine [Mass ratio] 22.4 mg/mg Normal [facility] Comment on above: Performed By: #### L IPID, TSH, CMP #### [facility] [address] [place] [address] Dr. Isai Ruelas TSHon 10-26-2022 TSH 1.671 uIU/mL Normal 0.358-3.74 0 [facility] Comment on above: Performed By: #### L IPID, TSH, CMP #### [facility] [address] [place] [address] Dr. Isai Ruelas VIT B12 AND FOLATEon 023 Cobalamin (Vitamin B12) [Mass/Vol] 314.0 pg/mL Normal 193.0-986. 0 [facility] Comment on above: Performed By: #### B 12FOL, VITAD #### [facility] [address] [place] [address] Dr. Isai Ruelas FOLATE 21.40 ng/mL Normal 8.60-58.90 [facility] Comment on above: Performed By: #### B 12FOL, VITAD #### [facility] [address] [place] [address] Dr. Isai Ruelas VITAMIN D 25 OHon 10-26-2022 VIT D 25-OH 17.7 ng/mL Normal [facility] Comment on above: Performed By: #### B 12FOL, VITAD #### [facility] [address] [place] [address] Dr. Isai Ruelas VIT D RANGES SEE BELOW Normal [facility] Comment on above: Result Comment: <20 ng/mL Vit D deficient 20 - <30 ng/mL Vit D insufficient 30 - 100 ng/mL Vit D sufficient >100 ng/mL Potential Toxicity Performed By: #### B 12FOL, VITAD #### [facility] [address] [place] [address] Dr. Isai Ruelas A1C HEMOGLOBINon 07-20-2022 HbA1c (Bld) [Mass fraction] 5.7 % [employer] Other HbA1c (Bld) [Mass fraction]o n 07-20-2022 A1C HEMOGLOBIN Located within [facility] [employer] Other CBC AUTO DIFFon 03-19-2022 BASO # 0.1 103/ul Normal 0.0-0.1 [facility] Comment on above: Performed By: #### C BC #### [facility] [address] [place] [address] Dr. Isai Ruelas Basophils/100 WBC (Bld) 0.6 % Normal 0.2-2.0 [facility] Comment on above: Performed By: #### C BC #### [facility] [address] [place] [address] Dr. Isai Ruelas EO # 0.1 103/ul Normal 0.0-0.7 [facility] Comment on above: Performed By: #### C BC #### [facility] [address] [place] [address] Dr. Isai Ruelas Eosinophils/100 WBC (Bld) 1.7 % Normal 0.9-7.0 [facility] Comment on above: Performed By: #### C BC #### [facility] [address] [place] [address] Dr. Isai Ruelas Erythrocyte distribution width (RBC) [Ratio] 13.0 % Normal 11.0-15.0 [facility] Comment on above: Performed By: #### C BC #### [facility] [address] [place] [address] Dr. Isai Ruelas Hematocrit (Bld) [Volume fraction] 40.9 % Normal 36.0-48.0 [facility] Comment on above: Performed By: #### C BC #### [facility] [address] [place] [address] Dr. Isai Ruelas Hemoglobin (Bld) [Mass/Vol] 13.3 g/dL Normal 12.0-16.0 [facility] Comment on above: Performed By: #### C BC #### [facility] [address] [place] [address] Dr. Isai Ruelas IG # 0.03 10e3/ul Normal 0.00-0.03 [facility] Comment on above: Performed By: #### C BC #### [facility] [address] [place] [address] Dr. Isai Ruelas IG % 0.4 % Normal 0.0-0.5 [facility] Comment on above: Performed By: #### C BC #### [facility] [address] [place] [address] Dr. Isai Ruelas LYMPH # 2.1 103/ul Normal 1.2-3.8 [facility] Comment on above: Performed By: #### C BC #### [facility] [address] [place] [address] Dr. Isai Ruelas Lymphocytes/100 WBC (Bld) 26.7 % Normal 20.5-60.0 [facility] Comment on above: Performed By: #### C BC #### [facility] [address] [place] [address] Dr. Isai Ruelas MANUAL DIFF REQ NO Normal [facility] Comment on above: Performed By: #### C BC #### [facility] [address] [place] [address] Dr. Isai Ruelas MCH (RBC) [Entitic mass] 30.9 pg Normal 26.7-34.0 [facility] Comment on above: Performed By: #### C BC #### [facility] [address] [place] [address] Dr. Isai Ruelas MCHC (RBC) [Mass/Vol] 32.5 g/dL Normal 29.9-35.2 [facility] Comment on above: Performed By: #### C BC #### [facility] [address] [place] [address] Dr. Isai Ruelas MCV (RBC) [Entitic vol] 94.9 fL Normal 81.0-99.0 [facility] Comment on above: Performed By: #### C BC #### [facility] [address] [place] [address] Dr. Isai Ruelas MONO # 0.8 103/ul Normal 0.3-0.8 [facility] Comment on above: Performed By: #### C BC #### [facility] [address] [place] [address] Dr. Isai Ruelas Monocytes/100 WBC (Bld) 10.6 % Normal 1.7-12.0 [facility] Comment on above: Performed By: #### C BC #### [facility] [address] [place] [address] Dr. Isai Ruelas NEUT # 4.6 103/ul Normal 1.4-6.5 [facility] Comment on above: Performed By: #### C BC #### [facility] [address] [place] [address] Dr. Isai Ruelas Neutrophils/100 WBC (Bld) 60.0 % Normal 43.0-75.0 [facility] Comment on above: Performed By: #### C BC #### [facility] [address] [place] [address] Dr. Isai Ruelas Platelet mean volume (Bld) [Entitic vol] 10.0 fL Normal 9.5-13.5 [facility] Comment on above: Performed By: #### C BC #### [facility] [address] [place] [address] Dr. Isai Ruelas PLT 283 103/ul Normal 150-450 [facility] Comment on above: Performed By: #### C BC #### [facility] [address] [place] [address] Dr. Isai Ruelas RBC 4.31 106/ul Normal 4.20-5.40 [facility] Comment on above: Performed By: #### C BC #### [facility] [address] [place] [address] Dr. Isai Ruelas WBC 7.7 103/ul Normal 4.0-11.0 [facility] Comment on above: Performed By: #### C BC #### [facility] [address] [place] [address] Dr. Isai Ruelas LIVER PROFILEon 03-19-2022 Albumin [Mass/Vol] 3.6 g/dL Normal 3.4-5.0 [facility] Comment on above: Performed By: #### B MP, LIVER #### [facility] [address] [place] [address] Dr. Isai Ruelas Albumin/Globulin [Mass ratio] 1.2 {ratio} Normal [facility] Comment on above: Performed By: #### B MP, LIVER #### [facility] [address] [place] [address] Dr. Isai Ruelas ALP [Catalytic activity/Vol] 109 U/L Normal 46-116 [facility] Comment on above: Performed By: #### B MP, LIVER #### [facility] [address] [place] [address] Dr. Isai Ruelas ALT [Catalytic activity/Vol] 20 U/L Normal 14-59 [facility] Comment on above: Performed By: #### B MP, LIVER #### [facility] [address] [place] [address] Dr. Isai Ruelas AST [Catalytic activity/Vol] 14 U/L Critically low 15-37 [facility] Comment on above: Performed By: #### B MP, LIVER #### [facility] [address] [place] [address] Dr. Isai Ruelas BILI, CONJUGATED 0.1 mg/dL Normal 0.0-0.2 [facility] Comment on above: Performed By: #### B MP, LIVER #### [facility] [address] [place] [address] Dr. Isai Ruelas Bilirubin [Mass/Vol] 0.4 mg/dL Normal 0.2-1.0 [facility] Comment on above: Performed By: #### B MP, LIVER #### [facility] [address] [place] [address] Dr. Isai Ruelas Globulin (S) [Mass/Vol] 3.1 g/dL Normal [facility] Comment on above: Performed By: #### B MP, LIVER #### [facility] [address] [place] [address] Dr. Isai Ruelas Protein [Mass/Vol] 6.7 g/dL Normal 6.4-8.2 [facility] Comment on above: Performed By: #### B MP, LIVER #### [facility] [address] [place] [address] Dr. Isai Ruelas PROF CHEM 8 (BAS METB)on Anion gap [Moles/Vol] 10.2 mmol/L [facility] Comment on above: Performed By: #### B MP, LIVER #### [facility] [address] [place] [address] Dr. Isai Ruelas Calcium [Mass/Vol] 9.1 mg/dL Normal 8.5-10.1 [facility] Comment on above: Performed By: #### B MP, LIVER #### [facility] [address] [address] [address] Isai Ruelas Chloride [Moles/Vol] 107 mmol/L Normal 98-107 [facility] Comment on above: Performed By: #### B MP, LIVER #### [facility] [address] [address] [address] Isai Ruelas CO2 [Moles/Vol] 29.7 mmol/L Normal 21.0-32.0 [facility] Comment on above: Performed By: #### B MP, LIVER #### [facility] [address] [address] [address] Isai Ruelas Creatinine [Mass/Vol] 0.68 mg/dL Normal 0.55-1.02 [facility] Comment on above: Performed By: #### B MP, LIVER #### [facility] [address] [place] [address] Dr. Isai Ruelas EGFR-AF CROATIAN >60 Normal >=60 [facility] Comment on above: Performed By: #### B MP, LIVER #### [facility] [address] [place] [address] Dr. Isai Ruelas EGFR-NON AF CROATIAN >60 Normal >=60 [facility] Comment on above: Performed By: #### B MP, LIVER #### [facility] [address] [place] [address] Dr. Isai Ruelas Glucose [Mass/Vol] 99 mg/dL Normal 74-106 [facility] Comment on above: Performed By: #### B MP, LIVER #### [facility] [address] [place] [address] Dr. Isai Ruelas Potassium [Moles/Vol] 3.9 mmol/L Normal 3.5-5.1 [facility] Comment on above: Performed By: #### B MP, LIVER #### [facility] [address] [address] [address] Isai Ruelas Sodium [Moles/Vol] 143 mmol/L Normal 136-145 [facility] Comment on above: Performed By: #### B MP, LIVER #### [facility] [address] [address] [address] Isai Ruelas Urea nitrogen [Mass/Vol] 21.0 mg/dL Critically high 7.0-18.0 [facility] Comment on above: Performed By: #### B MP, LIVER #### [facility] [address] [address] [address] Isai Ruelas Urea nitrogen/Creatinine [Mass ratio] 30.9 mg/mg Normal [facility] Comment on above: Performed By: #### B MP, LIVER #### [facility] [address] [address] [address] Isai Ruelas ED Note-Physicianon 03-02-20 ED Note-Physician Patient: KEON AMES Age: 67 years Sex: Female : 1950 Associated Diagnoses: None Author: Desean Ivy PA-C Basic Information Time seen: Date & time [...] HabitsNo Data Available, Patient works at a correction, Nonsmoker, no alcohol abuse. Problem list: No [...] nurses' notes. Orders Launch Order Profile (Selected) PrescriptionsPrescribeddox ycycline hyclate 100 mg Tab: 100 mg = [...] Diagnosis Blister of left heel with infection ([id number] S90.822A, Discharge, Medical) Plan Condition: Stable. Disposition: Discharged: Time 02/21/17 16:41:00, to home. Prescriptions: Launch prescriptions Pharmacy:doxycycline hyclate 100 mg Tab (Prescribe): 100 = 1 mg tab(s), Oral, Daily, X 10 day(s), # 10 tab(s), Refills(s) 0. Patient was given the following educational materials: Wound Care, Nfwg-en-Dubd. Follow up with: Shar Heaven In 3 days 02/24/2017 Continue with topical [...] The case was discussed with: the physician itinerant teacher assistant. Results interpretation: I agree with the documentation of the study interpretation. Normal [facility] Comment on above: Result Comment: Elec tronically Signed By: Desean Ivy PA-C\.br\Date and Time Signed: 02/21/17 16:47 EDT\.br\Electronically Co-Signed By: Joss Han MD\.br\Date and Time Co-Signed: 03/02/17 00:24 EDT Coding Summary.on 02-25-2017 Coding Summary. CODING DATE: 017 FINAL [facility] STATUS: Home (Routine DC) PAYOR: Commercial [...] Jessica Date Saved: 02/25/2017 01:18 pm Normal [facility] Coding Summary. CODING DATE: 017 FINAL [facility] STATUS: Home (Routine DC) PAYOR: Commercial [...] Jessica Date Saved: 02/25/2017 01:18 pm Normal [facility] ED Clinical Summaryon 2016 ED Clinical Summary (Inserted Image. Tammy ble to display) [place] [id number] ED Clinical SummaryPerson Information Name: [facility] Age[facility] 67 Years : 1950 12:00 AM Sex: Female Language:Sami PCP: Shar Collado MD Marital Status: Visit [...] PM 02/21/2017 5:13 PM 02/21/2017 5:13 PM ADDRESS:[address] [place] [id number] [facility] DOC NOTES: MEDICAL INFORMATION: Prescriptions Given:Prescription Display doxycycline (doxycycline hyclate 100 mg Tab) 100 mg = 1 tab(s), Oral, Daily, X 10 day(s), # 10 tab(s), Refills(s) 0 PATIENT EDUCATION INFORMATION: Instructions:Wound Care, Vrkp-nr-Rmbp Follow up:With: Address: When: [place] [address] [employer] ([employer] In 3 days 02/24/2017 Comments: Continue with [...] DIAGNOSIS:Blister of left heel with infection Normal [facility] ED Patient Education Noteon 02-21-2017 ED Patient [...] Revised: 08/22/2012 Document Reviewed: 10/04/2011ExitCare? Patient Information ?2015 [employer] in [place]. This information is not intended to replace advice given to you by your health care provider. Make sure you discuss any questions you have with your health care provider. Normal [facility] ED Patient Summaryon 017 ED Patient Summary (Inserted Image. Tammy ble to display) [place] [id number] Patient Discharge Instructions Person Information Name: BRANDEN AMES Age: 67 Years Date: 02/21/2017 4:24 PMDischarge Diagnosis: Blister of left heel with infection Primary Care Physician: Shar Collado MD Provider InformationPrimary Provider: Physician Mental Health Consultant:None The exam and treatment you received in the Emergency Department were for an urgent problem and are not intended as complete care. It is important that you follow up with a doctor, nurse practitioner, or physician?s itinerant teacher assistant for ongoing care. If your symptoms become worse or you do not improve as expected and you are unable to reach your usual health care provider, you should return to the Emergency Department. We are available 24 hours a day. BRANDEN AMES has been given the following list of patient education materials, prescriptions and follow-up instructions: Follow-up Instructions:With: Address: When: [place] [address] [employer] ([employer] In 3 days 02/24/2017 Comments: Continue with [...] nearby participating provider. Patient Education Materials:Wound Care, Kmnj-ql-Nadc Medications Given:Medication Dose Route No medications found. Medication Information:New MedicationsPrinted Prescriptionsdoxycycline (doxycycline hyclate 100 mg Tab) 1 Tabs By Mouth every day for 10 Days. Refills: 0.Comment: Pharmacy Information: Thank you for choosing [facility] Patient Education Materials: Wound CareWound care [...] 08/22/2012 Document Reviewed: 10/04/2011ExitCare? Patient Information ?2014 [employer] in [place]. This information is not intended to replace advice given to you by your health care provider. Make sure you discuss any questions you have with your health care provider.KWAKU Mcnulty BETSY , have received the following patient education materials/instructions and have verbalized understanding: Patient Education Materials: Wound Care, Uilp-wu-Gsau Follow-up Instructions: With: Address: When: [place] [address] [employer] ([employer] In 3 days 02/24/2017 Comments: Continue with [...] (doxycycline hyclate 100 mg Tab)] Patient Signature __ Date Clinician/Nurse Signature Date 02/21/17 17:13:17 Normal [facility] Vital Signs Date Time Vital Sign Value Performing Clinician Moe campbell 02-21-2025 09:02-0400 Body height 154.94 cm Dottie DeWilde DO Work Phone: [facility] 02-21-2025 09:02-0400 Body mass index (BMI) [Ratio] 22.8 kg/m2 Dottie DeWilde DO Work Phone: [facility] 02-21-2025 09:02-0400 Body temperature 97.1 [degF] Dottie DeWilde DO Work Phone: [facility] 02-21-2025 09:02-0400 Body weight 54.88 kg Dottie DeWilde DO Work Phone: [facility] 02-21-2025 09:02-0400 Diastolic blood pressure 70 mm[Hg] Dottie DeWilde DO Work Phone: [facility] 02-21-2025 09:02-0400 Heart rate 72 /min Dottie DeWilde DO Work Phone: [facility] 02-21-2025 09:02-0400 Respiratory rate 18 /min Dottie DeWilde DO Work Phone: [facility] 02-21-2025 09:02-0400 SaO2% (BldA) [Mass fraction] 94 % Dottie DeWilde DO Work Phone: [facility] 02-21-2025 09:02-0400 Systolic blood pressure 120 mm[Hg] Dottie DeWilde DO Work Phone: [facility] 12-26-2024 14:22-0400 Diastolic blood pressure 66 mm[Hg] Dottie DeWilde DO Work Phone: [facility] 12-26-2024 14:22-0400 Heart rate 82 /min Dottie DeWilde DO Work Phone: [facility] 12-26-2024 14:22-0400 Systolic blood pressure 142 mm[Hg] Dottie DeWilde DO Work Phone: [facility] 11-29-2024 11:140400 Body height 154.94 cm Dottie DeWilde DO Work Phone: [facility] 11-29-2024 11:14-0400 Body mass index (BMI) [Ratio] 23.6 kg/m2 Dottie DeWilde DO Work Phone: [facility] 11-29-2024 11:14-0400 Body weight 56.69 kg Dtotie DeWilde DO Work Phone: [facility] 11-29-2024 11:14-0400 Diastolic blood pressure 74 mm[Hg] Dottie DeWilde DO Work Phone: [facility] 11-29-2024 11:14-0400 Heart rate 88 /min Dottie DeWilde DO Work Phone: [facility] 11-29-2024 11:14-0400 Respiratory rate 16 /min Dottie DeWilde DO Work Phone: [facility] 11-29-2024 11:14-0400 SaO2% (BldA) [Mass fraction] 93 % Dottie DeWilde DO Work Phone: [facility] 11-29-2024 11:14-0400 Systolic blood pressure 118 mm[Hg] Dottie DeWilde DO Work Phone: [facility] 08-14-2024 11:21-0500 Body height 154.94 cm Blanca Swanson DO Work Phone: [facility] 08-14-2024 11:21-0500 Body mass index (BMI) [Ratio] 23.1 kg/m2 Christopher Sky DO Work Phone: [facility] 08-14-2024 11:21-0500 Body weight 55.56 kg Christopher Sky DO Work Phone: [facility] 08-14-2024 11:21-0500 Diastolic blood pressure 70 mm[Hg] Christopher Sky DO Work Phone: [facility] 08-14-2024 11:21-0500 Systolic blood pressure 118 mm[Hg] Christopher Sky DO Work Phone: [facility] 08-01-2024 11:42-0500 Body height 154.94 cm Christopher Sky DO Work Phone: [facility] 08-01-2024 11:42-0500 Diastolic blood pressure 60 mm[Hg] Christopher Sky DO Work Phone: [facility] 08-01-2024 11:42-0500 Heart rate 82 /min Christopher Sky DO Work Phone: [facility] 08-01-2024 11:42-0500 Respiratory rate 18 /min Christopher Sky DO Work Phone: [facility] 08-01-2024 11:42-0500 SaO2% (BldA) [Mass fraction] 97 % Christopher Sky DO Work Phone: [facility] 08-01-2024 11:42-0500 Systolic blood pressure 130 mm[Hg] Christopher Sky DO Work Phone: [facility] 07-24-2024 10:16-0500 Body height 154.94 cm Dottie DeWilde DO Work Phone: [facility] 07-24-2024 10:16-0500 Body mass index (BMI) [Ratio] 23.2 kg/m2 Dottie DeWilde DO Work Phone: [facility] 07-24-2024 10:16-0500 Body weight 55.84 kg Dottie DeWilde DO Work Phone: [facility] 07-24-2024 10:16-0500 Diastolic blood pressure 84 mm[Hg] Dottie DeWilde DO Work Phone: [facility] 07-24-2024 10:16-0500 Heart rate 80 /min Dottie DeWilde DO Work Phone: [facility] 07-24-2024 10:16-0500 Respiratory rate 18 /min Dottie DeWilde DO Work Phone: [facility] 07-24-2024 10:16-0500 SaO2% (BldA) [Mass fraction] 95 % Dottie DeWilde DO Work Phone: [facility] 07-24-2024 10:16-0500 Systolic blood pressure 132 mm[Hg] Dottie DeWilde DO Work Phone: [facility] 06-27-2024 09:45-0500 Diastolic blood pressure 65 mm[Hg] Dottie DeWilde DO Work Phone: [facility] 06-27-2024 09:45-0500 Heart rate 75 /min Dottie DeWilde DO Work Phone: [facility] 06-27-2024 09:45-0500 Systolic blood pressure 132 mm[Hg] Dottie DeWilde DO Work Phone: [facility] 05-24-2024 11:39-0500 Body height 157.5 cm La Mora MITER CUTTER Work Phone: [facility] 05-24-2024 11:39-0500 Body mass index (BMI) [Ratio] 22.5 kg/m2 [place] [employer] Work Phone: [facility] 05-24-2024 11:39-0500 Body weight 55.79 kg La Mora [employer] Work Phone: [facility] 05-24-2024 11:39-0500 Diastolic blood pressure 64 mm[Hg] [place] [employer] Work Phone: [facility] 05-24-2024 11:39-0500 Systolic blood pressure 118 mm[Hg] [place] [employer]TER Work Phone: [facility] 03-27-2024 11:16-0400 Body mass index (BMI) [Ratio] 22.06 kg/m2 [address] Sky DO Work Phone: [facility] 03-27-2024 11:16-0400 Body weight 54.7 kg Christopher Sky DO Work Phone: [facility] 03-27-2024 11:16-0400 Diastolic blood pressure 78 mm[Hg] Christopher Sky DO Work Phone: [facility] 03-27-2024 11:16-0400 Systolic blood pressure 125 mm[Hg] [place] Sky DO Work Phone: [facility] 07-22-2023 10:30-0500 Body height 151.13 cm [place] Other [employer] Other 07-22-2023 10:30-0500 Body mass index (BMI) [Ratio] 23.79 kg/m2 [place] Other [employer] Other 07-22-2023 10:30-0500 Body weight 54.34 kg [place] Other [employer] Other 07-22-2023 10:30-0500 Diastolic blood pressure 68 mm[Hg] [place] Other [employer] Other 07-22-2023 10:30-0500 Respiratory rate 18 /min Maritza Ballesteros [employer] Other 07-22-2023 10:30-0500 SaO2% (BldA) [Mass fraction] 98 % [place]za Jaya Other [employer] Other 07-22-2023 10:30-0500 Systolic blood pressure 122 mm[Hg] [place] Other [facility] Other 07-20-2022 11:15-0500 Body height 151.13 cm Maritza Jaya Other [employer] Other 07-20-2022 11:15-0500 Body mass index (BMI) [Ratio] 24.11 kg/m2 Mar[place]za Jaya Other [facility] Other 07-20-2022 11:15-0500 Body weight 55.07 kg Maritza Jaya Other [employer] Other 07-20-2022 11:15-0500 Diastolic blood pressure 70 mm[Hg] [place] Other [facility] Other 07-20-2022 11:15-0500 Respiratory rate 18 /min [place] Other [employer] Other 07-20-2022 11:15-0500 SaO2% (BldA) [Mass fraction] 98 % [place] Other [facility] Other 07-20-2022 11:15-0500 Systolic blood pressure 130 mm[Hg] [place] Other [employer] Other 06-19-2022 13:44-0500 Respiratory rate 18 /min Dottie DeWilde DO Work Phone: [facility] 06-19-2022 09:15-0500 Body temperature 97.7 [degF] Dottie DeWilde DO Work Phone: [facility] 06-19-2022 09:15-0500 SaO2% (BldA) [Mass fraction] 100 % Dottie DeWilde DO Work Phone: [facility] 05-30-2021 09:30-0500 Body height 160.02 cm Dottie DeWilde DO Work Phone: [facility] 05-30-2021 09:30-0500 Body mass index (BMI) [Ratio] 22.1 kg/m2 Dottie DeWilde DO Work Phone: [facility] 05-30-2021 09:30-0500 Body weight 56.7 kg Dottie DeWilde DO Work Phone: [facility] 04-18-2021 10:30-0400 Body height 151.13 cm [place] Other [employer] Other 04-18-2021 10:30-0400 Body mass index (BMI) [Ratio] 24.33 kg/m2 [place] Other [facility] Other 04-18-2021 10:30-0400 Body temperature 97.5 [degF] [place] Other [facility] Other 04-18-2021 10:30-0400 Body weight 55.57 kg [place] Other [facility] Other 04-18-2021 10:30-0400 Diastolic blood pressure 70 mm[Hg] Maritza Jaya Other [facility] Other 04-18-2021 10:30-0400 Respiratory rate 18 /min [place] J[place] Other [facility] Other 04-18-2021 10:30-0400 SaO2% (BldA) [Mass fraction] 98 % [place] J[place] Other [facility] Other 04-18-2021 10:30-0400 Systolic blood pressure 120 mm[Hg] [place] Other [place] [employer] Other Encounters Encounter Date Encounter Type Care Provider Facility Start: 02-21-2025 End: 02-21-2025 ambulatory Dottie Osmel KUMAR Work Phone: [facility] Work Phone: Start: 02-21-2025 End: 02-21-2025 Patient encounter procedure Dottie Jackiecarrie DO -[facility] [place] Work Phone: Start: 12-26-2024 Registered Recurring Messi Robles DO -Infusion Therapy - O/P Work Phone: Start: 12-26-2024 ambulatory Blanca Masterson acility:[facility] Start: 12-07-2024 Non-patient / Non-visit [place] APRN-SOLAR SALES REPRESENTATIVE AND ASSESSOR-C -[facility] Work Phone: Start: 11-29-2024 End: 11-29-2024 Patient encounter procedure [place] APRN-SOLAR SALES REPRESENTATIVE AND ASSESSOR-C -[facility] [place] Work Phone: Start: 08-14-2024 End: 08-14-2024 ambulatory Blanca Swanson DO Work Phone: [facility] Work Phone: Start: 08-14-2024 End: 08-14-2024 Patient encounter procedure Blanca Swanson DO Work Phone: [facility] Physician [facility] [place] Work Phone: Start: 08-01-2024 End: 08-01-2024 Departed Referred Blanca Swanson DO Work Phone: [facility] [place] Work Phone: Start: 08-01-2024 End: 08-01-2024 ambulatory Blanca Swanson DO Work Phone: [facility] Work Phone: Start: 08-01-2024 End: 08-01-2024 Patient encounter procedure Blanca Swanson DO Work Phone: [facility] [place] Work Phone: Start: 07-24-2024 End: 07-24-2024 ambulatory Dottie Mejiae DO Work Phone: [facility] Work Phone: Start: 07-24-2024 End: 07-24-2024 Patient encounter procedure Dottie Mejiae DO Work Phone: [facility] [place] Work Phone: Start: 06-27-2024 Registered Recurring Dottie Robert Bigsgkellie DO Work Phone: [facility] - [facility] Work Phone: Start: 05-24-2024 End: 05-24-2024 Bamboo flowsheet [place] [employer] Work Phone: [facility] [address] Start: 05-24-2024 End: 05-24-2024 Bamboo flowsheet [place] [employer] Work Phone: [facility] [address] Start: 05-24-2024 End: 05-24-2024 Office outpatient visit 15 minutes [place] [employer] Work Phone: [facility] [address] Comment on above: Multiple sclerosis ( CMS/HCC) (Primary Dx); Cognitive dysfunction; Encounter for medication monitoring; Anisocoria; Noncompliance Start: 05-24-2024 End: 05-24-2024 ambulatory LA MORA Not Available Start: 04-28-2024 End: 04-28-2024 Telephone encounter Regine Anaya PT [facility] Comment on above: PT Initial Eval (Tri ed to contact to offer to schedule PT Eval for multiple sclerosis, script pending auth, but had to lm requesting a call back.) Start: 04-25-2024 End: 04-25-2024 Patient encounter procedure Dottie Bolivar DO Work Phone: [facility] [place] Work Phone: Start: 04-25-2024 End: 04-25-2024 ambulatory Dottie Bolivar DO Work Phone: [facility] Work Phone: Start: 03-27-2024 End: 03-27-2024 Bamboo flowsheet Blanca Swanson DO Work Phone: [facility] [address] Start: 03-27-2024 End: 03-27-2024 Bamboo flowsheet Blanca Swanson DO Work Phone: [facility] [address] Start: 03-27-2024 End: 03-27-2024 Clinisync Result Encounter [place] [employer] Work Phone: [facility] External Department Unsolicited Start: 03-27-2024 Non-patient / Non-visit Dottie Bolivar DO Work Phone: [facility] Work Phone: Start: 03-27-2024 End: 03-27-2024 ambulatory BLANCA SWANSON Not Available Start: 03-27-2024 End: 03-27-2024 Office outpatient visit 25 minutes [place] Sky DO Work Phone: [facility] [address] Comment on above: Multiple sclerosis ( CMS/HCC) (Primary Dx); Anisocoria Start: 12-06-2023 End: 12-06-2023 ambulatory LA MORA Not Available Start: 07-22-2023 End: 07-22-2023 ambulatory [place] Other [employer] Other Start: 07-22-2023 Patient encounter procedure [place] [facility] Start: 10-26-2022 End: 10-27-2022 ambulatory [place] Facility:[facility] Start: 07-20-2022 End: 07-20-2022 ambulatory [place] Other [employer] Other Start: 07-20-2022 Office outpatient visit 25 minutes [place] [facility] Start: 03-19-2022 End: 03-20-2022 ambulatory [place] Facility:[facility] Start: 03-16-2022 End: 03-16-2022 ambulatory [place] Other [facility] Other Start: 03-16-2022 Telephone encounter [facility]za Jaya [facility] Start: 01-11-2022 End: 01-11-2022 ambulatory [place] Other [facility] Other Start: 01-11-2022 Telephone encounter Maritza Romainle [facility] Start: 06-24-2021 End: 06-24-2021 ambulatory [place] Other [facility] Other Start: 06-24-2021 Telephone encounter Maritza Jaya [facility] Start: 05-05-2021 End: 05-05-2021 ambulatory [place] Other [facility] Other Start: 05-05-2021 Telephone encounter Maritza Masterson [facility] [place] Start: 05-01-2021 End: 05-01-2021 ambulatory Maritza Lake Other [facility] Other Start: 05-01-2021 Telephone encounter [facility] Start: 04-28-2021 End: 04-28-2021 ambulatory Maritza Lake Other [facility] Other Start: 04-28-2021 Telephone encounter [facility] Start: 04-18-2021 End: 04-18-2021 ambulatory Maritza Lake Other [facility] Other Start: 04-18-2021 Office outpatient visit 25 minutes Maritza Lake [facility] [place] Start: 02-21-2017 End: 02-21-2017 Emergency department patient visit [facility] Facility:[facility] Procedures Date Procedure Procedure Detail Performing Clinician Start: 04-25-2024 MRI of head Dottie Wilson DO Work Phone: Start: 03-27-2024 ALL CBC WITH AUTO DIFF La Mora NP Work Phone: Breast cancer screening declined Breast cancer screening declined Dottie Jackiecarrie DO Plan of Treatment Date Care Activity Detail Author Start: 11-29-2024 End: 11-29-2024 Patient encounter procedure 11/29/2024 11:20 AM EDT Office Visit [facility] [address] [facility] [place] [address] La Mora NP [address] [place] [address] [facility] Start: 05-24-2024 End: 05-24-2024 Patient encounter procedure [facility] Comment on above: Arrived Start: 03-27-2024 End: 03-27-2025 MR Brain WO and W contrast IV MR brain w and wo contrast routine Imaging Routine Multiple sclerosis (CMS/HCC) Expected: 03/27/2024, Expires: 03/27/2025 [facility] Work Phone: Comment on above: Expected: 03/27/2024 , Expires: 03/27/2025 Start: 02-13-2024 Influenza vaccination Influenza Vacc ine (#1) [facility] Start: 05-11-2021 Screening for malign ant neoplasm of colon [facility] Start: 02-06-2017 Pneumococcal Vaccine : 65+ Years (1 of 1 - PCV) Pneumococcal Vaccine: 65+ Years (1 of 1 - PCV) [facility] Start: 1992 Screening for malign ant neoplasm of breast Mammogram [facility] Start: 1950 Screening for malign ant neoplasm of colon [facility] Immunizations Immunization Date Immunization Notes Care Provider Fa paulino 07-24-2024 Pneumococcal Conjuga te Vaccine, 20 valent Dottie Bolivar DO Work Phone: [facility] 09-12-2020 influenza, seasonal, injectable Maritza Lake Other [facility] 09-12-2020 influenza virus vaccine, unspecified formulation La Mora NP Work Phone: [facility] 04-26-2020 zoster vaccine, live Pradip Lake Other [facility] Payers Date Payer Category Payer Medicare (Managed Care) [employer] [id number] 2023 Self-pay 2021 Unknown [id number] 2021 Unknown [id number] 1957 Medicare [id number] 1959 Unknown [id number] 1952 Unknown [id number] [id number] 1952 Unknown [id number]. [id number] 1952 Unknown [id number]. [id number] 1952 Unknown [id number] [id number] 1952 Unknown [id number] [id number] Unknown [id number]. 2.531 Unknown [id number] [id number] Unknown [id number] [id number] Social History Date Type Detail Facility Start: 12-06-2023 End: 05-24-2024 Sex Assigned At [facility] Other Start: 04-27-2018 End: 12-06-2023 Tobacco smoking status [facility] Smokes tobacco daily [facility] History of tobacco use Cigarette Smoker [facility] Start: 12-06-2023 Tobacco use and exposure Smokeless tobacco non-user [facility] Start: 12-06-2023 End: 05-24-2024 Alcoholic beverage intake Lifetime non-drinker (finding) [facility] Start: 12-06-2023 End: 05-24-2024 History of Social function [facility] Start: 1950 Sex assigned at Not on file [facility] Start: 04-27-2018 Tobacco smoking stat us NHIS Smoker (finding) [facility] Start: 04-26-2024 Sex Patient sex un known (finding) [facility] Start: 1950 Sex Assigned At Female F [facility] Start: 07-24-2024 End: 08-14-2024 Sex Female (finding) [facility] Goals Date Patient Goal Desired Activity /State Clinical Notes 04-18-2021 to 11-29-2024 Note Date & Type Note Facility 11-29-2024 Evaluation note Diagnosis Onset Date Resolution Encounter for medication monitoring acute November 29, 2024 11:09am Anisocoria chronic November 29 11:09am Cognitive dysfunction chronic Nov 11:09am Multiple sclerosis chronic November 122024 11:09am Noncompliance chronic November 29, 2024 11:09am Benign essential hypertension acute February 21, 2025 8:58am Mixed hyperlipidemia acute Feb 8:58am Prediabetes acute February 8:58am Vitamin D deficiency acute Feb 8:58am Multiple sclerosis chronic 2024 8:58am Osteoporosis screening declined noneactive February 21, 2025 8:58am Lung cancer screening declined by patient noneactive February 212024 8:58am Breast cancer screening declined noneactive February 21, 2025 8:58am Medicare annual wellness visit, subsequent noneactive February 8:58am [facility] Work Phone: 1(962) 317-531402-10-2025 Evaluation note* Diagnosis Onset Date Resolution Status Admit Date Actinic keratoses acute uar 2024 10:04am Prediabetes acute July 10:04am Seborrheic keratoses acute ua2024 10:04am Colon cancer screening declined noneactive July 24 10:04am Breast cancer screening declined noneactive July 24 10:04am Medicare annual wellness visit, subsequent noneactive July 24, 2024 10:04am Influenza vaccination declined noneactive July 24 10:04am [facility] Work Phone: 1(574) 487-599302-10-2025 Evaluation note* Diagnosis Onset Date Resolution Status Admit Date Actinic keratoses acute uar 2024 10:04am Prediabetes acute July 10:04am Seborrheic keratoses acute Febr uary 2024 10:04am Colon cancer screening declined noneactive July 24 10:04am Breast cancer screening declined noneactive July 24 10:04am Medicare annual wellness visit, subsequent noneactive July 24, 2024 10:04am Influenza vaccination declined noneactive July 24 10:04am Actinic keratoses acute uar y 2024 11:16am Seborrheic keratoses acute Febr uary 2024 11:16am [facility] Work Phone: 1(434) 894-353811-15-2024 Telephone encounter Note* Telephone Encounter - Azucena Moreira - 04/28/2024 1:14 PM EST Received no attempts. [id number] Miscellaneous Notes* Telephone Encounter - Azucena Moreira - 04/28/2024 1:14 PM EST Received no attempts. documented in this encounterSaint [facility] [id number] History of Present illness Narrative* Blanca Swanson DO - 03/27/2024 11:15 AM EDT Images from the original note were not included. Chief Complaint: MS Subjective The patient presents today for follow up for MS. Labs were ordered at her last visit she did not get these done. She is here with her daughter and grand daughter. She is receiving Ocrevus infusions every 6 months. Her last infusion was the end of November. She states these are not helping as much as they have in the past. She reports being more off balance. She declines any falls. She reports a decline in her vision. She is having difficulty with cognitive functions as well. She reports difficulty finding words. She reports always being fatigued but is sleeping well at night. Her daughter states she has gotten worse since she retired in November. She is wondering if there is something other than Ocrevus that would be more beneficial at this time. She has had about 5 infusion so far. Review of Systems Constitutional: Positive for fatigue. Negative for appetite change, chills, fever and unexpected weight change. HENT: Negative for trouble swallowing and voice change. Eyes: Denies visual change, double vision, or loss of vision Respiratory: Negative for cough, shortness of breath and wheezing. Cardiovascular: Negative for chest pain and palpitations. Gastrointestinal: Negative for abdominal pain, blood in stool, nausea and vomiting. Musculoskeletal: Positive for gait problem (imbalance). Negative for arthralgias, myalgias and neckstiffness. Neurological: Negative for dizziness, tremors, seizures, syncope, facial asymmetry, speech difficulty, weakness, light-headedness, numbness and headaches. Psychiatric/Behavioral: Negative for confusion, hallucinations and suicidal ideas. The patient is not nervous/anxious. Medication List Accurate as of March 27, 2024 11:08 AM. If you have any questions, ask your nurse or doctor. CONTINUE taking these medications aspirin 81 MG EC tablet atenolol 25 MG tablet; Commonly known as: Tenormin DOCUSATE SODIUM PO ocrelizumab 300 MG/10ML solution; Commonly known as: Ocrevus simvastatin 40 MG tablet; Commonly known as: Zocor Past Medical History: Diagnosis Date Cervicalgia Disturbance of skin sensation Multiple sclerosis (CMS/HCC) Optic neuritis Radiculopathy, lumbosacral region Past Surgical History: Procedure Laterality Date IR INTERVENTION STENT 06/30/2019 Family History Problem Relation Name Age of Onset Hyperlipidemia Father Social History Tobacco Use Smoking status: Every Day Types: Cigarettes Smokeless tobacco: Never Substance Use Topics Alcohol use: Never Allergies: Patient has no known allergies. There were no vitals filed for this visit. There is no height or weight on file to calculate BMI. Neurologic exam: Mental status: Awake and alert with unlabored respirations. Oriented to person, place and time. Recent and remote memory are intact. Speech is clear and fluent without aphasia. Attention and concentration are normal. Fund of knowledge is appropriate for level of education. Cranial nerves: CN II: Visual acuity is normal. Visual tobar full to confrontation. CN III, IV, : Pupils are round and reactive to light. Right pupil is 6 mm and left pupil is 2 mm.Extraocular movements intact. No ptosis on the right. Very minimal ptosis of the upper eyelid on the left. CN V: Facial sensation is normal. CN VII: Full and symmetric facial movement. CN VIII: Hearing is normal to finger rub bilaterally. CN IX and X: Palate elevates symmetrically. CN XI: Shoulder shrug is normal bilaterally. CN XII: Tongue is midline without atrophy or fasciculation. Motor: RUE strength deltoid , biceps , triceps , wrist extensors , wrist flexor , and roll or tape edge machine operator strength 5/5. LUE strength deltoid , biceps , triceps , wrist extensors , wrist flexor , and roll or tape edge machine operator strength 5/5. Trace weakness. RLE strength iliopsoas, quadriceps, tibialis anterior, plantar flexion, and dorsiflexion strength 5/5. LLE strength iliopsoas, quadriceps, tibialis anterior, plantar flexion, and dorsiflexion strength 5/5. Tone and bulk are normal. Sensory: Sensation is intact to light touch throughout all four extremities. Sensation is intact to temperature in all extremities. Reflexes: RUE biceps reflex 2+ , brachioradialis reflex 2+. LUE biceps reflex 2+ , brachioradialis reflex 2+. RLE Knee reflex 2+. LLE Knee reflex 2+. Coordination: [id number] testing normal. Rapid alternating movements are normal. Gait: Normal. Review and summary of old records: Labs from 03/19/22: CBC unremarkable with ALC of 2100; CMP unremarkable Laboratory evaluation at [place] showed unremarkable hepatitis and CBC panels. However, CMP showedelevated K and BUN (PCP reviewing) MRI of the brain with and without contrast on 04/22/21 at [facility]: Moderately diffuse demyelinating disease bilaterally. A small focus of active demyelination in the right occipital region. No acute infarct or hydrocephalus. MRI of the cervical spine with and without contrast on 04/22/21 at [facility]: A newly developing demyelinating plaque at the level of C5. No abnormal postcontrast enhancement in this lesion. Redemonstration of small demyelinating plaque at C3/4 on the right. Similar to prior study. Moderate cervical spondylosis MRI of the brain without contrast at [facility] on 07/17/19: Multifocal demyelinating plaques consistent with MS. No evidence of restricted diffusion to suggest active demyelination. Cortically based gliosis and encephalomalacia within the posterior and lateral aspect of the left parietal lobe suggesting a remote infarct. Age-related atrophy without evidence of focal atrophy. MRI of the cervical spine at [facility] on 08/03/19: Hyperintense lesions within the cervical cord atthe level of C3/4 and patchy signal noted anteriorly in the cord at C5 and at C7 vertebral bodies. These are presumed to be demyelinating. Multilevel facet and uncovertebral degenerative changes at multiple levels. MRI of the thoracic spine at [facility] on 08/04/19:12 mm T2 hyperintense lesion within the cord at T5/T6 which is likely demyelinating. There is also in signal intensity within the thoracic cord at T8/T9 and T12/L1 this extends to the level of the conus. This likely represents multiple poorly defined demyelinating lesions. There is also multilevel degenerative change noted. Laboratory evaluation at the request on 08/24/19: CBC and basic metabolic panel are unremarkable. Lyme disease antibody evaluation negative, BETTY antibody POSITIVE Vitamin D: [id number] asked to replace Tuberculosis Gold: Negative Dx: 2006 Brain MRI at [facility] in 2009: Demyelinating disease with worsening interval change when compared to MRI from 2007. Assessment/Plan Diagnoses and all orders for this visit: Multiple sclerosis ([facility]) It is my impression that the patient has relapsing remitting MS with initial diagnosis was in 2006.She has demyelinating disease identified on the brain, cervical, and thoracic spine. The patient isJC virus positive. She failed Aubagio previously due to GI side effects and dizziness. She also failed Zeposia due to dizziness. MRI of the brain and cervical spine on 04/22/21 revealed active and worsening demyelination. The patient was subsequently started on Ocrevus which she has been tolerating well. She has not returned for follow-up in our office since 2021 and did not have the brain and cervical spine MRIs completed which were ordered at the prior appointment. PLAN: - Check MRI of the brain to evaluate for any disease progression and medication efficacy Patient still needs to get labs done from last visit We will also order physical therapy as the patient does feel she has gotten slightly worse from a physical perspective since retiring. - Continue Ocrevus 600 mg IV every 6 months - I strongly recommended MRI of the brain and cervical spine for MS disease surveillance. Patient refused - I educated the patient on the importance of regular follow-up appointments for monitoring - The patient is familiar with signs and symptoms of MS exacerbation. I advised her to notify the office or seek care should she develop any of these in the future - The patient reports chronic fatigue which certainly could be related to MS. However, I recommended polysomnography to rule out concurrent sleep disorder such as obstructive sleep apnea which could be contributing to her symptoms. The patient politely refused this Encounter for medication monitoring Ocrevus use. PLAN: - Check labs (CBC, CMP, IgG). I educated the patient on the importance of periodic lab monitoring throughout Ocrevus use - I have discussed potential side effects of Ocrevus including infusion reaction, allergic reaction, kidney or liver damage, PML, increased susceptibility to acute infections, and increased cancer risk with the patient. 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 She insists this is chronic and has been present for multiple years, however, it has not been documented on previous exams in our office. Certainly, this raises concern for intracranial cause. The patient denies any other symptoms of carotid artery dissection (no eye pain, neck pain, facial pain, headache, double vision, vision loss or tinnitus). She states she has been evaluated by her eye doctor, and they had no concerns. PLAN: - I strongly recommended an updated MRI of the brain and MRA of the head to assess for an intracranial process which may be contributing to the patient's anisocoria. I also recommended MRI of the cervical spine. The patient politely refused. She understands we cannot rule out intracranial lesion orunderlying pathology which could be potentially debilitating or life-threatening without imaging. She accepts this risk. - I recommended the patient follow up closely with ophthalmology, however, she refuses any work up in regard to this Diagnosis and treatment options discussed in detail. All questions answered. Patient understands and is agreeable to the plan. Discussion in layman's terms. Follow up in the office within 3 to 4 months; sooner if needed for new or worsening symptoms. documented in this encounterSaint John[facility] [id number] Evaluation note* Encounter Date Diagnosis Assessment Notes Treatment Notes Treatment Clinical Notes Jul, Medicare annual wellness visit, subsequent (ICD-10 - Z00.00) Personalized health advice was given to the beneficiary including a written plan for screenings discussed and provided. Advanced care planning reviewed and/or information given as requested. The above visit was performed by Donna NAZARIO, under direct supervision of Maritza Lake,DNP,JUNIOR ENGINEER,FIG BAR MACHINE OPERATOR. Document reviewed and amended by provider signed [...] history of colon cancer. Cologuard ordered today. [facility] Other 02-06-2023 Evaluation note* Encounter Date Diagnosis Assessment Notes Treatment Notes Treatment Clinical Notes Jul, Benign essential hypertension (ICD-10 - [...] history of colon cancer. Cologuard ordered today. [facility] Other 07-31-2022 Evaluation note* Encounter Date Diagnosis Assessment Notes Treatment Notes Treatment Clinical Notes Dec, Prediabetes (ICD-10 - R73.03) [facility] Other 01-11-2022 Evaluation note* Encounter Date Diagnosis Assessment Notes Treatment Notes Treatment Clinical Notes Jun, Hyperkalemia (ICD-10 - E87.5) Jun, Elevated BUN (ICD-10 - R79.9) [facility] Other 11-18-2021 Evaluation note* Encounter Date Diagnosis Assessment Notes Treatment Notes Treatment Clinical Notes Apr, Screening for colon cancer (ICD-10 - Z12.11) [facility] Other 11-15-2021 Evaluation note* Encounter Date Diagnosis Assessment Notes Treatment Notes Treatment Clinical Notes Apr, High blood sugar (ICD-10 - R73.9) Apr, Hypokalemia (ICD-10 - E87.6) [facility] Other 11-05-2021 Evaluation note* Encounter Date Diagnosis Assessment Notes Treatment Notes Treatment Clinical Notes Apr, Low back pain, unspecified (ICD-10 [...] (ICD-10 - G35) see above treatment plan. [facility] Other Evaluation noteNo InformationNort [employer] Other Evaluation note* Diagnosis Multiple sclerosis (CMS/HCC)- Primary Multiple sclerosis Anisocoria documented in this encounter [facility] HealthcareEvaluation noteNo assessment information availableWayne [facility] Work Phone: Evaluation note* Diagnosis Multiple sclerosis (CMS/HCC)- Primary Multiple sclerosis Cognitive dysfunction Unspecified persistent mental disorders due to conditions classified elsewhere Encounter for medication monitoring Encounter for therapeutic drug monitoring Anisocoria Noncompliance documented in this encounter [facility] Healthcare[facility] note* Diagnosis Onset Date Resolution Status Admit Date Prediabetes acute July 10:04am Colon cancer screening declined noneactive July 24 10:04am Breast cancer screening declined noneactive July 24 10:04am Medicare annual wellness visit, subsequent noneactive July 24, 2024 10:04am [facility] Work Phone: History general Narrative - Reported* Type Description Date Medical History hypertension Medical History high cholesterol Medical History cigarette abuse Medical History coronary artery disease Surgical History STENT PUT IN 2002 Surgical History TONSILS REMOVED Surgical History cataract surgery 11/2020 Hospitalization History SEE ABOVE [facility] Other Reason for referral (narrative)No reason for referral information availableC[facility] Work Phone: Summary Purpose Family History No Family History Records Found Relationship Condition Age at Onset Recorded Date/T deborah brother Diabetes mellitus Unknown father Unknown Heart disease Unknown mother Unknown Relationship Condition Age at Onset Recorded Date/T deborah brother Diabetes mellitus Unknown father Unknown Heart disease Unknown mother Unknown Parkinson's disease Unknown Advance Directives No Advanced Directives Records Found Advance Directive Response Recorded Date/ Time Advance Directives No July 07, 2017 4:58pm Advance Directive Response Recorded Date/ Time Advance Directives No July 07, 2017 5:58pm Chief Complaint and Reason for Visit Chief Complaint Admit Date g3April 25, 2024 2:36pm Chief Complaint Admit Date April 25, 2024 2:36pm MS June 27, 2024 9 :42am [id number] July 24, 2024 10:04am Reason for Visit Admit Date Prediabetes July 24, 2024 10:04am Colon cancer screening declined July 24, 2024 10:04am Breast cancer screening declined 2024 10:04am Medicare annual wellness visit, subseque nt July 24, 2024 10:04am Chief Complaint Admit Date MS June 27, 2024 9 :42am [id number] July 24, 2024 10:04am Mole removal August 01, 2024 11:16am Reason for Visit Admit Date Actinic keratoses July 24, 2024 10:04am Prediabetes July 24, 2024 10:04am Seborrheic keratoses July 24, 2024 10:04am Colon cancer screening declined July 24, 2024 10:04am Breast cancer screening declined 2024 10:04am Medicare annual wellness visit, subseque nt July 24, 2024 10:04am Influenza vaccination declined July 24, 2024 10:04am Reason for Visit Admit Date Actinic keratoses July 24, 2024 10:04am Prediabetes July 24, 2024 10:04am Seborrheic keratoses July 24, 2024 10:04am Colon cancer screening declined July 24, 2024 10:04am Breast cancer screening declined 2024 10:04am Medicare annual wellness visit, subseque nt July 24, 2024 10:04am Influenza vaccination declined July 24, 2024 10:04am Actinic keratoses August 01, 2024 11:16am Seborrheic keratoses August 01, 2024 11:16am Chief Complaint Admit Date MS June 27, 2024 9 :42am [id number] July 24, 2024 10:04am Mole removal August 01, 2024 11:16am Lesion On Right Upper Chest July 11:30am 2 week follow up August 14, 2024 11:1 4am Chief Complaint Admit Date MS December 26, 2024 9:12 am AMW February 21, 2025 8:58am Reason for Visit Admit Date Encounter for medication monitoring November 29, 2024 11:09am Anisocoria November 29, 2024 11:0 9am Cognitive dysfunction November 29, 2024 11 :09am Multiple sclerosis November 29, 2024 11:0 9am Noncompliance November 29, 2024 11:0 9am Benign essential hypertension February 21, 2025 8:58am Mixed hyperlipidemia February 21 8:58am Prediabetes February 21, 2025 8:58am Vitamin D deficiency February 21 8:58am Multiple sclerosis February 21, 2025 8:58am Osteoporosis screening declined r 2024 8:58am Lung cancer screening declined by charly dunbar February 21, 2025 8:58am Breast cancer screening declined 2024 8:58am Medicare annual wellness visit, miller villalta February 21, 2025 8:58am Additional Source Comments INFORMATION SOURCE (unrecogn ized section and content) DATE CREATED AUTHOR 12/08/2017 Sylvester Gonzales [facility] DATE CREATED AUTHOR AUTHOR'S ORGANIZ ATION 10/27/2022 [facility] DATE CREATED AUTHOR AUTHOR'S ORGANIZ ATION 05/27/2024 [facility] EPIC DATE CREATED AUTHOR AUTHOR'S ORGANIZ ATION 03/19/2025 [facility] [facility] REASON FOR VISIT (unrecogniz ed section and content) Reason Onset Date Comments PT Initial Eval 03/28/2024 Tried to contact to offer to schedule PT Eval for multiple sclerosis, script pending auth, but had to lm requesting a call back. Reason Comments Multiple Sclerosis Imbalance Care Teams (unrecognized sec tion and content) Team Status: Active Member Role Status Dates Dottie Bolivar DO Primary Care Provider Active Team Status: Inactive Member Role Status Dates Dottie Bolivar DO Primary Care Provider Active Start: November 29, 2024 End: November 29, 2024 YENY Thomas Attending Provider Active Start: November 29, 2024 End: November 29, 2024 Team Status: Active Member Role Status Dates Dottie Bolivar DO Primary Care Provider Active Start: December 07, 2024 YENY Thomas Attending Provider Active Start: December 07, 2024 Team Status: Active Member Role Status Dates Blanca Swanson DO Attending Provider Active Start: December 26, 2024 Blanca Swanson DO Referring Provider Active Start: December 26, 2024 Dottie Bolivar DO Primary Care Provider Active Start: December 26, 2024 Team Status: Inactive Member Role Status Dates Dottie Bolivar DO Primary Care Provider Active Start: February 21, 2025 End: February 21, 2025 Dottie Bolivar DO Attending Provider Active S tart: February 21, 2025 End: February 21, 2025 Team Status: Active Member Role Status Dates Blanca Swanson DO Attending Pro vider, Referring Provider Active Start: June 27, 2024 Dottie Bolivar DO Primary Care Provider Active Start: June 27, 2024 Team Status: Inactive Member Role Status Dates Dottie Bolivar DO Primary Care Provid er, Attending Provider Active Start: July 24, 2024 End: July 24, 2024 Team Status: Inactive Member Role Status Dates Dottie Bolivar DO Primary Care Provid er, Attending Provider Active Start: August 01, 2024 End: August 01, 2024 Team Status: Inactive Member Role Status Dates Dottie Bolivar DO Primary Care Provider Active Start: April 25, 2024 End: April 25, 2024 Blanca Swanson DO Attending Provider Active Start: April 25, 2024 End: April 25, 2024 Finisher [employer] Relationship Specialty Start Date End Date Maritza Lake NP [address] [facility] [place] [address] 11/15/23 [employer]isher [employer] Relationship Specialty Start Date End Date Maritza Lake NP [address] [place] [address] 11/15/23 Finisher [employer] Relationship Specialty Start Date End Date Maritza Lake NP [address] [facility] [place] [address] 11/15/23 Team Status: Active Member Role Status Dates Dottie Bolivar DO Primary Care Provider Active Start: March 27, 2024 [place] , JUNIOR ENGINEER-SOLAR SALES REPRESENTATIVE AND ASSESSOR-C Attending Provider Active Start: March 27, 2024 Finisher [employer] Relationship Specialty Start Date End Date Maritza Lake NP [address] [facility] [place] [address] 11/15/23 Finisher [employer] Relationship Specialty Start Date End Date Maritza Lake NP [address] [place] [address] 11/15/23 Team Status: Inactive Member Role Status Dates Dottie Bolivar DO Attending Provider Active S tart: August 01, 2024 End: August 01, 2024 Team Status: Inactive Member Role Status Dates Dottie Bolivar DO Primary Care Provid er, Attending Provider Active Start: August 14, 2024 End: August 14, 2024 Goals (unrecognized section and content) Goals may be documented in a n alternate section FOR RECORDS PERTAINING TO PATIENTS WHO ARE [...] BE BASED ON THE PRIMARY CLINICAL RECORDS. [facility] [employer] [facility]. provides no warranty or guarantee of the accuracy or completeness of information in this document.
[2025-03-23 10:13] LABS: Cholesterol 165 mg/dL (<=200); HDL Cholesterol 76 mg/dL (40-60); Triglycerides 81 mg/dL (<=150); VLDL CHOLESTEROL 16.2 mg/dL
== END 2025-03-23 08:26 | disposition home or self-care (01) ==
LOC: LAB 08:25
PROVIDERS: PCP Nurse Practitioner Family; Visit Provider Student in an Organized Health Care Education/Training Program
DX: E78.2 Mixed hyperlipidemia (principal); E55.9 Vitamin D deficiency, unspecified; R73.03 Prediabetes; I10 Essential (primary) hypertension
CPT/HCPCS: 36415; 80061; 82043; 82306; 82570; 83036

== ENCOUNTER 2025-03-26 09:07 | Outpatient (REF) | payer MEDICARE, SELFPAY ==
--- OUTSIDE RECORDS SUMMARY | 2025-03-26 09:11 | XMS_ITS | Encounter Summary ---
Author Organization [facility] Address [facility] [place] [address] Care Team Providers Care Boring Mill Operator For Metal Name Role Phone Self Primary Care Provider Unavailabl e Source Comments In the event this information is protected by the Federal Confidentiality of Alcohol and Drug AbusePatient Records regulations: The Federal rules restrict any use of the information to criminally investigate or prosecute any alcohol or drug abuse patient.[facility] Reason for Visit * Reason Comments Medication Preauthorization [employer] Encounter Details Date Type Department Care Team (Late st Contact Info) Description 03/06/2013 [facility] [address] [address] Logan Hess MD [address] [place], [place] [id number] Medication Preauthorization ([employer]) Social History Tobacco Use [...] on filedocumented in this encounter Care Teams Boring Mill Operator For Metal Relationship Specialty Start Date End Date Self PCP - General 01/31/13 documented as of this encounter
--- OUTSIDE RECORDS SUMMARY | 2025-03-26 09:11 | XMS_ITS | Clinical Summary ---
Author Organization [facility] Address [address] [place], [place] [id number] Care Team Providers Care Scrubber Operator Name Role Phone Self Primary Care Provider Unavailabl e Allergies No known active allergies Medications aspirin, enteric coated (ASPIR-LOW) 81 mg ORAL EC tablet Take 1 tablet by mouth once daily. 0 10/09/2011 Active Cholecalciferol , Vitamin D3, (VITAMIN D) 1,000 unit ORAL Cap Take 5 capsules by mouth once daily. 0 10/09/2011 Active SIMVASTATIN ORAL Take by mouth. Not sure of mg Active losartan (COZAAR) 25 mg tablet Take 1/2 tab daily 09/18/2014 Active atenolol (TENORMIN) 25 mg tablet Take 1/2 tab daily 09/18/2014 Active teriflunomide (AUBAGIO) 14 mg tab Take 1 tablet by mouth once daily. 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 Other optic neuritis 11/02/2011 Nuclear cataract, nonsenile 11/02/2011 Family History Medical History Relation Comments Heart Father Parkinson Disease [Other] Mother Multiple Sclerosis No Family History Relation Status Comments Father Mother Social History Tobacco Use Types Packs/Day Years [...] file Not on file Not on file Last Filed Vital Signs Vital Sign Reading Time Taken Comments Blood Pressure 100/55 12/11/2014 10:29 AM EDT Pulse 80 12/11/2014 10:29 AM EDT Temperature - - Respiratory Rate 20 12/11/2014 10:29 AM EDT Oxygen Saturation 100% 09/18/2014 9:18 AM EDT Inhaled Oxygen Concentration - - Weight 56.7 kg (125 lb) 12/11/2014 10:29 AM EDT Height 156.2 cm (5' 1.5 ) 12/11/2014 10:29 AM ED T Body Mass Index 23.24 12/11/2014 10:29 AM EDT Plan of Treatment Health Maintenance Due Date Last Done Comments Anxiety Screening 02/06/1970 Depression Screening 02/06/1970 Hepatitis C Screening 02/06/1970 DTaP,Tdap,Td Vaccine (1 - Tdap) 02/06/[address] Colonography 02/06/1997 Cologuard (FIT-DNA) 02/06/1997 Colonoscopy 02/06/1997 Colorectal Cancer Screening 02/06/1997 Fecal Occult Blood 02/06/1997 Lipid Screening 02/06/1997 Sigmoidoscopy 02/06/1997 Pneumococcal Vaccine: 50+ (1 of 1 - PCV) 02/06/2002 Shingrix Vaccine (1 of 2) 02/06/2002 Diabetes Screening 10/08/2014 10/09/2011 Bone Density Screening 02/06/2017 Advance Directive Discussion 06/14/2024 Covid-19 Vaccine (1 - season) 2025 Influenza Vaccine (#1) 2025 RSV Vaccine (1 - 1-dose 75+ series) 02/06/2027 Procedures Procedure Name Priority Date/Time Associated Diagnosis Comments BASIC METABOLIC PANEL Routine 10/09/2011 2:45 PM EDT Multiple sclerosis from Last 3 Months or Most Recently Relevant to Health Maintenance Results * (ABNORMAL) BASIC METABOLIC PNL (10/09/2011 2:45 PM EDT) Glucose 92 65 - 100 mg/dL [facility] BUN 22 8 - 25 mg/dL [facility] Creatinine 0.61(L) 0.70 - 1.40 mg/dL [facility] Sodium 140 132 - 148 mmol/L [facility] Potassium 4.2 3.5 - 5.0 mmol/L [facility] Chloride 104 98 - 110 mmol/L [facility] CO2 22(L) 23 - 32 mmol/L [facility] Anion Gap 14 0 - 15 mmol/L [facility] Calcium 10.4 8.5 - 10.5 mg/dL [facility] eGFR- >60 [facility] eGFR-All Other Races >60 . [facility] Comment: eGFR (Estimated GFR) Units of measure: mL/min/1.73 meters squared eGFR is derived from the reexpressed MDRD Study equation using the following parameters: serum creatinine, age, gender and race. The creatinine assay has been calibrated to be traceable to IDMS. An eGFR <60 mL/min/1.73m2 for >3 months is consistent with chronic kidney disease. Refer to KDOQI guidelines for clinical interpretation. Blood specimen (specimen) BLOOD SPECIMEN / Unknown 10/09/2011 2:45 PM EDT 10/09/2011 2:50 PM EDT Logan Hess MD LABORATORY Final Result [facility] [address] [facility] [place] [address] from Last 3 Months or Most Recently Relevant to Health Maintenance Insurance Care Teams Scrubber Operator Relationship Specialty Start Date End Date Self PCP - General 01/31/13
--- OUTSIDE RECORDS SUMMARY | 2025-03-26 09:11 | XMS_ITS | Clinical Summary ---
Author Organization [facility] Address [address] [place] [address] Care Team Providers Care Lacquer Polisher Name Role Phone Jaya Maritza Margaret SLAB PULLER Unavailable [phone] Allergies No known active allergies Medications DOCUSATE [...] 05/24/2024 11:39 AM EST Plan of Treatment Not on file Insurance [employer] Care Teams Lacquer Polisher Relationship Specialty Start Date End Date Maritza Lake NP 11/15/23
--- OUTSIDE RECORDS SUMMARY | 2025-03-26 09:14 | XMS_ITS | CCD ---
Author Organization [facility] Providers Care Psychologist Name Role Phone Joss Han Unavailable Unavailable Joss Han Unavailable Unavailable October, Shar Unavailable Unavailable Maritza Lake Unavailable Maritza Lake Unavailable MARITZA LAKE Primary Care Unavailable MARITZA LAKE Admitting Unavailable MARITZA LAKE Attending Unavailable MARITZA LAKE Consulting Unavailable MARITZA LAKE Primary Care Unavailable MISC, DR LUTZ Attending Unavailable MISC, DR LUTZ Consulting Unavailable MISC, DR LUTZ Admitting Unavailable Jaya MGMT SPECIALISTMaritza Unavailable DeWilde DO, Dottie Primary Care Provider Blanca Swanson DO Attending Provider LA MORA Attending Unavailable BLANCA SWANSON Attending Unavailable LA MORA Attending Unavailable Blanca Swanson DO Referring Provider [phone] Blanca Swanson DO Attending Provider DeWilde DO, Dottie Primary Care Provider DeWitanyae DO, Dottie Attending Provider [phone] DeOzzye DO, Dottie Primary Care Provider Darryl SIEGLE-La CORNEJO Attending Provider Blanca Swanson DO Attending Provider Blanca Swanson DO Referring Provider DeWitanyae DO, Dottie Attending Provider [phone] Dottie Bolivar Admitting Unavailable Dottie Bolivar Attending [...] Basophils (Bld) [#/Vol] 0.0 10 3/uL 0.0-0.1 [facility] Basophils/100 WBC Auto (Bld) Ordered By: La Mora on 12-07-2024 Basophils/100 WBC (Bld) 0.6 % 0.2-2.0 [facility] Eosinophils/100 WBC Auto (Bl d)Ordered By: La Mora on 12-07-2024 Eosinophils/100 WBC (Bld) 0.5 % Low 0.9-7.0 [facility] Erythrocyte distribution wid th Auto (RBC) [Ratio]Ordered By: La Mora on 12-07-2024 Erythrocyte distribution width (RBC) [Ratio] 12.5 % 11.0-15.0 [facility] Globulin Calc (S) [Mass/Vol] Ordered By: La Mora on 12-07-2024 Globulin (S) [Mass/Vol] 3.4 g/dL [facility] Glomerular filtration rate ( GFR) estimation in non- AmericanOrdered By: La Mora on 12-07-2024 GFR/1.73 sq M.predicted among non-blacks MDRD (S/P/Bld) [Vol rate/Area] mL/min/{1.73_m2} >=60 mL/min/1.7 3m 2 [facility] Hematocrit Auto (Bld) [Volum e fraction]Ordered By: La Mora on 12-07-2024 Hematocrit (Bld) [Volume fraction] 42.7 % 36.0-48.0 [facility] Hemoglobin [Mass/volume] in BloodOrdered By: La Mora on 12-07-2024 Hemoglobin (Bld) [Mass/Vol] 14.3 g/dL 12.0-16.0 [facility] IgG [Mass/volume] in Serum o r PlasmaOrdered By: La Mora on 12-07-2024 IgG [Mass/Vol] 790 mg/dL [phone] [facility] Comment on above: Performed at: [address] [id number] Director: Eric Hays PhD, Phone: [phone] Laboratory - Chemistry and C hemistry - challengeOrdered By: La Mora on 12-07-2024 Albumin [Mass/Vol] 3.4 g/dL 3.4-5.0 [facility] ALP [Catalytic activity/Vol] 96 U/L 46-116 [facility] ALT [Catalytic activity/Vol] 18 U/L 14-59 [facility] AST [Catalytic activity/Vol] 19 U/L 15-37 [facility] Bilirubin [Mass/Vol] 0.6 mg/dL 0.2-1.0 [facility] Calcium [Mass/Vol] 9.3 mg/dL 8.5-10.1 [facility] Chloride [Moles/Vol] 105 mmol/L 98-107 [facility] CO2 [Moles/Vol] 29.8 mmol/L 21.0-32.0 [facility] Creatinine [Mass/Vol] 0.66 mg/dL 0.55-1.02 [facility] GFR/1.73 sq M.predicted MDRD (S/P/Bld) [Vol rate/Area] mL/min/{1.73_m2} >=60 mL/min/1.7 3m 2 [facility] Glucose [Mass/Vol] 130 mg/dL High 74-106 [facility] Potassium [Moles/Vol] 4.0 mmol/L 3.5-5.1 [facility] Protein [Mass/Vol] 6.8 g/dL 6.4-8.2 [facility] Sodium [Moles/Vol] 141 mmol/L 136-145 [facility] Urea nitrogen [Mass/Vol] 20.0 mg/dL High 7.0-18.0 [facility] Urea nitrogen/Creatinine [Mass ratio] 30.3 mg/mg [facility] Laboratory - Hematology and Cell countsOrdered By: La Mora on 12-07-2024 Immature granulocytes/100 WBC (Bld) 0.2 % 0.0-0.5 [facility] Leukocytes [#/volume] correc giorgio for nucleated erythrocytes in Blood by Automated counOrdered By: La Mora on 12-07-2024 WBC corrected for nucl RBC Auto (Bld) [#/Vol] 6.3 10 3/uL 4.0-11.0 [facility] Lymphocytes Auto (Bld) [#/Vo l]Ordered By: La Mora on 12-07-2024 Lymphocytes (Bld) [#/Vol] 2.2 10 3/uL 1.2-3.8 [facility] Lymphocytes/100 WBC Auto (Bl d)Ordered By: La Mora on 12-07-2024 Lymphocytes/100 WBC (Bld) 34.2 % 20.5-60.0 [facility] MCH Auto (RBC) [Entitic mass ]Ordered By: La Mora on 12-07-2024 MCH (RBC) [Entitic mass] 30.8 pg 26.7-34.0 [facility] MCHC Auto (RBC) [Mass/Vol]Or dered By: La Mora on 12-07-2024 MCHC (RBC) [Mass/Vol] 33.5 g/dL 29.9-35.2 [facility] MCV Auto (RBC) [Entitic vol] Ordered By: La Mora on 12-07-2024 MCV (RBC) [Entitic vol] 91.8 fL 81.0-99.0 [facility] Monocytes Auto (Bld) [#/Vol] Ordered By: La Mora on 12-07-2024 Monocytes (Bld) [#/Vol] 0.6 10 3/uL 0.3-0.8 [facility] Monocytes/100 WBC Auto (Bld) Ordered By: La Mora on 12-07-2024 Monocytes/100 WBC (Bld) 8.9 % 1.7-12.0 [facility] Neutrophils Auto (Bld) [#/Vo l]Ordered By: La Mora on 12-07-2024 Neutrophils (Bld) [#/Vol] 3.5 10 3/uL 1.4-6.5 [facility] Neutrophils/100 WBC Auto (Bl d)Ordered By: La Mora on 12-07-2024 Neutrophils/100 WBC (Bld) 55.6 % 43.0-75.0 [facility] No Panel InformationOrdered By: La Mora on 12-07-2024 Eosinophils # (Auto) 0.0 10 3/uL 0.0-0.7 [facility] Immature Granulocyte # (Auto) 0.01 10 3/uL 0.00-0.03 [facility] Platelet mean volume Auto (B ld) [Entitic vol]Ordered By: La Mora on 12-07-2024 Platelet mean volume (Bld) [Entitic vol] 10.6 fL 9.5-13.5 [facility] Platelets Auto (Bld) [#/Vol] Ordered By: La Mora on 12-07-2024 Platelets (Bld) [#/Vol] 258 10 3/uL 150-450 [facility] RBC Auto (Bld) [#/Vol]Ordere d By: La Mora on 12-07-2024 RBC (Bld) [#/Vol] 4.65 10 6/uL 4.20-5.40 [facility] Serum or plasma albumin/glob ulin mass ratioOrdered By: La Mora on 12-07-2024 Albumin/Globulin [Mass ratio] 1.0 {ratio} [facility] Serum or plasma anion gap de terminationOrdered By: La Mora on 12-07-2024 Anion gap [Moles/Vol] 10.2 mmol/L [facility] [place] 08-01-2024 L ------ Specimen: [id number] Received: 08/02/24 Status: PRASHANTH Jackson Num: [id number] Spec Type: Surgical Subm Dr: Dottie Bolivar DO Tissues: A Skin-Other than Cyst, tag, debridement or plastic repair (RIGHT UPPER CHEST) Procedures: BIRD, Blanco/La L4 Age/ Patient Sex Location Account Attending Physician FayeBranden butler Marck 74/F [place] [id number] Dottie Bolivar, DO SPEC NUM: [id number] RECD: 08/02/24 STATUS: JOAvtar JACKSON NUM: [id number] ILANA: 08/01/24-0000 [facility] DR: Dottie Bolivar DO ENTERED: 08/02/24 [facility] DR: GABRIELLA TYPE: Surgical DEPT: S ENTERED BY: [id number] RECV BY: [id number] ORDERED: HE, Gross/Micro L4 ORDERED: HE, Gross/Micro [...] [id number] Received: 08/02/24 Status: PRASHANTH Jackson Num: [id number] Spec Type: Surgical Subm Dr: Dottie Bolivar DO Tissues: A Skin-Other than Cyst, tag, debridement or plastic repair (RIGHT UPPER CHEST) Procedures: Blanco PANG/La Interiano Patient: FayecarrieBranden [id number] (Continued) Specimen: [id number] Received: 08/02/24 (Continued) Gross Description (Continued) Signed (signature on file) Loan Ruelas MD 08/03/24 1226 Specimen: [id number] Received: 08/02/24 Status: PRASHANTH Jackson Num: [id number] Spec Type: Surgical Subm Dr: Dottie Bolivar DO Tissues: A Skin-Other than Cyst, tag, debridement or plastic repair (RIGHT UPPER CHEST) Procedures: BIRD, Gross/Micro L4 Patient: Branden Ames [id number] (Continued) Specimen: [id number] Received: 08/02/24 (Continued) Gross Description (Continued) Time specimen extracted: 1130 Time specimen placed in formalin: 1130 Cold ischemic time: Less than 1 minute Total fixation time: 30 hours and 30 minutes (1, ns, [id number] A) MalinaG Microscopic Description Microscopic examinations are performed supporting the above interpretation CPT Codes 71664 Specimen: [id number] Received: 08/02/24 Status: PRASHANTH Jackson Num: [id number] Spec Type: Surgical Subm Dr: Dottie Bolivar DO Tissues: A Skin-Other than Cyst, tag, debridement or plastic repair (RIGHT UPPER CHEST) Procedures: HE, Gross/Micro L4 Patient: Branden Ames [id number] (Continued) Signed (signature on file) Loan Ruelas MD 08/03/24 1226 Normal [facility] HbA1c HPLC (Bld) [Mass fract ion]on 07-24-2024 HbA1c (Bld) [Mass fraction] Hemoglobin A1c/Hemoglobin.total in Blood by HPLC [facility] MR head/brain wo/w conbashir MR head/brain wo/w con [place] [id number] MRI Report Signed Patient: Branden Ames MR#: [id number] : 1950 Acct:[id number] Age/Sex: 74 / F ADM Date: 04/25/24 Loc: MR Room: Type: [facility] Attending Dr: Blanca Swanson DO Copies to: [...] Abhilash Cai M.D.04/25/2024 4:53 PM Dictation Location: [place] [address] Transcribed By: [facility] 04/25/24 1653 Dictated By: Abhilash Cai II, MD 04/25/24 1640 Signed By: 04/25/24 1653 Normal [facility] Magnetic resonance imaging r eportOrdered By: Abhilash Cai on 04-25-2024 Study report [facility] Main [address] [address] MRI Report Signed Patient: Branden Ames MR#: [id number] : 1950 Acct:[id number] Age/Sex: 74 / F ADM Date: 4 Loc: MR Room: Type: [facility] Attending Dr: Blanca Swanson DO Copies to: [...] Abhilash Cai M.D.04/25/2024 4:53 PM Dictation Location: [place] [address] Transcribed By: [facility] 04/25/241652 Dictated By: Abhilash Cai II, MD 04/25/24 1640 Signed By: 04/25/241652 [facility] Work Phone: ALL CBC WITH AUTO DIFFon BASOPHILS ABSOLUTE AUTO 0.1 [facility] Basophils/100 WBC (Bld) 0.6 % 0.2 - 2.0 % [facility] Eosinophils/100 WBC (Bld) 0.8 % Low 0.9 - 7.0 % [facility] Erythrocyte distribution width (RBC) [Ratio] 12.7 % 11.0 - 15.0 % [facility] Hematocrit (Bld) [Volume fraction] 42.9 % 36.0 - 48.0 % [facility] Hemoglobin (Bld) [Mass/Vol] 14.3 g/dL 12.0 - 16.0 g/dL [facility] IMMATURE GRANULOCYTES ABS AUTO 0.03 [facility] Immature granulocytes/100 WBC (Bld) 0.3 % 0.0 - 0.5 % [facility] Interpretation and review of laboratory results Abnormal [facility] LYMPHOCYTES ABSOLUTE AUTO 2.3 [facility] Lymphocytes/100 WBC (Bld) 23.7 % 20.5 - 60.0 % [facility] MCH (RBC) [Entitic mass] 31.8 pg 26.7 - 34.0 pg [facility] MCHC (RBC) [Mass/Vol] 33.3 g/dL 29.9 - 35.2 g/dL [facility] MCV (RBC) [Entitic vol] 95.3 fL 81.0 - 99.0 [facility]L [facility] MONOCYTES ABSOLUTE AUTO 0.9 High [facility] Monocytes/100 WBC (Bld) 9 % 1.7 - 12.0 % [facility] NEUTROPHILS ABSOLUTE AUTO 6.4 [facility] Neutrophils/100 WBC (Bld) 65.6 % 43.0 - 75.0 % [facility] Platelet mean volume (Bld) [Entitic vol] 10.3 fL 9.5 - 13.5 fL [facility] TBH EO # 0.1 [facility] TB PLT 261 [facility] RBC 4.5 [facility] WBC 9.7 [facility] Basophils Auto (Bld) [#/Vol] on 03-27-2024 Basophils (Bld) [#/Vol] Automated basophil count 0.0-0.1 [facility] Basophils/100 WBC Auto (Bld) on 03-27-2024 Basophils/100 WBC (Bld) Automated basophil % 0.2-2.0 [facility] Eosinophils/100 WBC Auto (Bl d)on 03-27-2024 Eosinophils/100 WBC (Bld) Automated eosinophil % Low 0.9-7.0 [facility] Erythrocyte distribution wid th Auto (RBC) [Ratio]on 03-27-2024 Erythrocyte distribution width (RBC) [Ratio] Erythrocyte distribution width [Ratio] by Automated count 11.0-15.0 [facility] Estimated glomerular filtrat ion rate (GFR) non- Americanon 03-27-2024 GFR/1.73 sq M.predicted among non-blacks MDRD (S/P/Bld) [Vol rate/Area] Estimated glomerular filtration rate (GFR) non- >=60 mL/min/1.7 3m 2 [facility] Globulin Calc (S) [Mass/Vol] on 03-27-2024 Globulin (S) [Mass/Vol] Serum globulin measurement by calculation (mass/volume) [facility] Hematocrit Auto (Bld) [Volum e fraction]on 03-27-2024 Hematocrit (Bld) [Volume fraction] Hematocrit [Volume Fraction] of Blood by Automated count 36.0-48.0 [facility] Hemoglobin [Mass/volume] in Bloodon 03-27-2024 Hemoglobin (Bld) [Mass/Vol] Hemoglobin [Mass/volume] in Blood 12.0-16.0 [facility] IgG [Mass/volume] in Serum o r Plasmaon 03-27-2024 IgG [Mass/Vol] IgG [Mass/volume] in Serum or Plasma [phone] [facility] Comment on above: Performed at: CB - [address] [id number] Director: Eric Hays PhD, Phone: [phone] Laboratory - Chemistry and C hemistry - challengeon 03-27-2024 Albumin [Mass/Vol] 3.7 g/dL 3.4-5.0 [facility] ALP [Catalytic activity/Vol] 104 U/L 46-116 [facility] ALT [Catalytic activity/Vol] 16 U/L 14-59 [facility] AST [Catalytic activity/Vol] 18 U/L 15-37 [facility] Bilirubin [Mass/Vol] 0.5 mg/dL 0.2-1.0 [facility] Calcium [Mass/Vol] 9.7 mg/dL 8.5-10.1 [facility] Chloride [Moles/Vol] 109 mmol/L High 98-107 [facility] CO2 [Moles/Vol] 25.5 mmol/L 21.0-32.0 [facility] Creatinine [Mass/Vol] 0.71 mg/dL 0.55-1.02 [facility] GFR/1.73 sq M.predicted MDRD (S/P/Bld) [Vol rate/Area] mL/min/{1.73_m2} >=60 mL/min/1.7 3m 2 [facility] Glucose [Mass/Vol] 82 mg/dL 74-106 [facility] Potassium [Moles/Vol] 4.4 mmol/L 3.5-5.1 [facility] Protein [Mass/Vol] 7.0 g/dL 6.4-8.2 [facility] Sodium [Moles/Vol] 144 mmol/L 136-145 [facility] Urea nitrogen [Mass/Vol] 19.0 mg/dL High 7.0-18.0 [facility] Urea nitrogen/Creatinine [Mass ratio] 26.8 mg/mg [facility] Laboratory - Hematology and Cell countson 03-27-2024 Immature granulocytes/100 WBC (Bld) 0.3 % 0.0-0.5 [facility] Leukocytes [#/volume] correc giorgio for nucleated erythrocytes in Blood by Automated counon 03-27-2024 WBC corrected for nucl RBC Auto (Bld) [#/Vol] Leukocytes [#/volume] corrected for nucleated erythrocytes in Blood by Automated coun 4.0-11.0 [facility] Lymphocytes Auto (Bld) [#/Vo l]on 03-27-2024 Lymphocytes (Bld) [#/Vol] Lymphocytes [#/volume] in Blood by Automated count 1.2-3.8 [facility] Lymphocytes/100 WBC Auto (Bl d)on 03-27-2024 Lymphocytes/100 WBC (Bld) Lymphocytes/100 leukocytes in Blood by Automated count 20.5-60.0 [facility] MCH Auto (RBC) [Entitic mass ]on 03-27-2024 MCH (RBC) [Entitic mass] MCH [Entitic mass] by Automated count 26.7-34.0 [facility] MCHC Auto (RBC) [Mass/Vol]on 03-27-2024 MCHC (RBC) [Mass/Vol] MCHC [Mass/volume] by Automated count 29.9-35.2 [facility] MCV Auto (RBC) [Entitic vol] on 03-27-2024 MCV (RBC) [Entitic vol] MCV [Entitic volume] by Automated count 81.0-99.0 [facility] Monocytes Auto (Bld) [#/Vol] on 03-27-2024 Monocytes (Bld) [#/Vol] Automated blood monocyte count High 0.3-0.8 [facility] Monocytes/100 WBC Auto (Bld) on 03-27-2024 Monocytes/100 WBC (Bld) Automated monocyte % 1.7-12.0 [facility] Neutrophils Auto (Bld) [#/Vo l]on 03-27-2024 Neutrophils (Bld) [#/Vol] Neutrophils [#/volume] in Blood by Automated count 1.4-6.5 [facility] Neutrophils/100 WBC Auto (Bl d)on 03-27-2024 Neutrophils/100 WBC (Bld) Automated neutrophil % 43.0-75.0 [facility] No Panel Informationon 03-27 Eosinophils # (Auto) 0.1 10 3/uL 0.0-0.7 [facility] Immature Granulocyte # (Auto) 0.03 10 3/uL 0.00-0.03 [facility] Platelet mean volume Auto (B ld) [Entitic vol]on 03-27-2024 Platelet mean volume (Bld) [Entitic vol] Platelet mean volume [Entitic volume] in Blood by Automated count 9.5-13.5 [facility] Platelets Auto (Bld) [#/Vol] on 03-27-2024 Platelets (Bld) [#/Vol] Platelets [#/volume] in Blood by Automated count 150-450 [facility] RBC Auto (Bld) [#/Vol]on RBC (Bld) [#/Vol] Erythrocytes [#/volu me] in Blood by Automated count 4.20-5.40 [facility] Serum or plasma albumin/glob ulin mass ratioon 03-27-2024 Albumin/Globulin [Mass ratio] Serum or plasma albumin/globulin mass ratio [facility] Serum or plasma anion gap de terminationon 03-27-2024 Anion gap [Moles/Vol] Serum or plasma an ion gap determination [facility] CBC AUTO DIFFon 10-26-2022 BASO # 0.1 103/ul Normal 0.0-0.1 [facility] Comment on above: Performed By: #### C BC #### [facility] [address] [place] [address] Dr. Isai Ruelas Basophils/100 WBC (Bld) 0.5 % Normal 0.2-2.0 [facility] Comment on above: Performed By: #### C BC #### [facility] [address] [place] [address] [address] Isai Ruelas EO # 0.2 103/ul Normal 0.0-0.7 [facility] Comment on above: Performed By: #### C BC #### [facility] [address] [place] [address] [address] Isai Ruelas Eosinophils/100 WBC (Bld) 1.3 % Normal 0.9-7.0 [facility] Comment on above: Performed By: #### C BC #### [facility] [address] [place] [address] [address] Isai Ruelas Erythrocyte distribution width (RBC) [Ratio] 13.4 % Normal 11.0-15.0 [facility] Comment on above: Performed By: #### C BC #### [facility] [address] [place] [address] [address] Isai Ruelas Hematocrit (Bld) [Volume fraction] 42.6 % Normal 36.0-48.0 [facility] Comment on above: Performed By: #### C BC #### [facility] [address] [place] [address] [address] Isai Ruelas Hemoglobin (Bld) [Mass/Vol] 14.4 g/dL Normal 12.0-16.0 [facility] Comment on above: Performed By: #### C BC #### [facility] [address] [place] [address] Dr. Isai Ruelas IG # 0.05 10e3/ul Critically high 0.00-0.03 [facility] Comment on above: Performed By: #### C BC #### [facility] [address] [place] [address] Dr. Isai Ruelas IG % 0.4 % Normal 0.0-0.5 [facility] Comment on above: Performed By: #### C BC #### [facility] [address] [place] [address] [address] Isai Ruelas LYMPH # 2.2 103/ul Normal 1.2-3.8 [facility] Comment on above: Performed By: #### C BC #### [facility] [address] [place] [address] Dr. Isai Ruelas Lymphocytes/100 WBC (Bld) 19.0 % Critically low 20.5-60.0 [facility] Comment on above: Performed By: #### C BC #### [facility] [address] [place] [address] Dr. Isai Ruelas MANUAL DIFF REQ NO Normal [facility] Comment on above: Performed By: #### C BC #### [facility] [address] [place] [address] [address] Isai Ruelas MCH (RBC) [Entitic mass] 31.6 pg Normal 26.7-34.0 [facility] Comment on above: Performed By: #### C BC #### [facility] [address] [place] [address] Dr. Isai Ruelas MCHC (RBC) [Mass/Vol] 33.8 g/dL Normal 29.9-35.2 [facility] Comment on above: Performed By: #### C BC #### [facility] [address] [place] [address] Dr. Isai Ruelas MCV (RBC) [Entitic vol] 93.4 fL Normal 81.0-99.0 [facility] Comment on above: Performed By: #### C BC #### [facility] [address] [place] [address] Dr. Isai Ruelas MONO # 0.9 103/ul Critically high 0.3-0.8 [facility] Comment on above: Performed By: #### C BC #### [facility] [address] [place] [address] Dr. Isai Ruelas Monocytes/100 WBC (Bld) 8.1 % Normal 1.7-12.0 [facility] Comment on above: Performed By: #### C BC #### [facility] [address] [place] [address] Dr. Isai Ruelas NEUT # 8.0 103/ul Critically high 1.4-6.5 [facility] Comment on above: Performed By: #### C BC #### [facility] [address] [place] [address] Dr. Isai Ruelas Neutrophils/100 WBC (Bld) 70.7 % Normal 43.0-75.0 [facility] Comment on above: Performed By: #### C BC #### [facility] [address] [place] [address] Dr. Isai Ruelas Platelet mean volume (Bld) [Entitic vol] 10.5 fL Normal 9.5-13.5 [facility] Comment on above: Performed By: #### C BC #### [facility] [address] [place] [address] [address] Isai Ruelas PLT 309 103/ul Normal 150-450 [facility] Comment on above: Performed By: #### C BC #### [facility] [address] [place] [address] [address] Isai Ruelas RBC 4.56 106/ul Normal 4.20-5.40 [facility] Comment on above: Performed By: #### C BC #### [facility] [address] [place] [address] [address] Isai Ruelas WBC 11.3 103/ul Critically high 4.0-11.0 [facility] Comment on above: Performed By: #### C BC #### [facility] [address] [place] [address] Dr. Isai Ruelas LIPID PROFILEon 10-26-2022 CHOL-HDL RATIO NORM SEE BELOW Normal [facility] Comment on above: Result Comment: 3.3 - 4.4 LOW RISK 4.4 - 7.1 AVERAGE RISK 7.1 - 11.0 MODERATE RISK >11.0 HIGH RISK Performed By: #### L IPID, TSH, CMP #### [facility] [address] [place] [address] Dr. Isai Ruelas Cholesterol [Mass/Vol] 161 mg/dL Normal <=200 [facility] Comment on above: Performed By: #### L IPID, TSH, CMP #### [facility] [address] [place] [address] Dr. Isai Ruelas Cholesterol in HDL [Mass/Vol] 79 mg/dL Critically high 40-60 [facility] Comment on above: Performed By: #### L IPID, TSH, CMP #### [facility] [address] [place] [address] Dr. Isai Ruelas Cholesterol in LDL [Mass/Vol] 71.8 mg/dL Normal [facility] Comment on above: Performed By: #### L IPID, TSH, CMP #### [facility] [address] [place] [address] Dr. Isai Ruelas Cholesterol.total/Cho lesterol in HDL [Mass ratio] 2.0 {ratio} Normal [facility] Comment on above: Performed By: #### L IPID, TSH, CMP #### [facility] [address] [place] [address] [address] Isai Ruelas HDL NORMAL > or = 60 mg/dl - LO W CARDIOVASCULAR RISK <40 mg/dl - HIGH CARDIOVASCULAR RISK Normal [facility] Comment on above: Performed By: #### L IPID, TSH, CMP #### [facility] [address] [place] [address] [address] Isai Ruelas LDL CALC NORMAL SEE BELOW Normal [facility] Comment on above: Result Comment: <100 mg/dl OPTIMAL 100 - 129 mg/dl NEAR OR ABOVE OPTIMAL 130 - 159 mg/dl BORDERLINE HIGH 160 - 189 mg/dl HIGH >190 mg/dl VERY HIGH Performed By: #### L IPID, TSH, CMP #### [facility] [address] [place] [address] [address] Isai Ruelas Triglyceride [Mass/Vol] 51 mg/dL Normal <=150 [facility] Comment on above: Performed By: #### L IPID, TSH, CMP #### [facility] [address] [place] [address] Dr. Isai Ruelas VLDL CALC 10.2 mg/dL Normal [facility] Comment on above: Performed By: #### L IPID, TSH, CMP #### [facility] [address] [place] [address] [address] Isai Ruelas MICROALB CREAT RATIO RANDOMo n 10-26-2022 mALB 2.0 mg/dL Normal <=30.0 [facility] Comment on above: Performed By: #### M CRR #### [facility] [address] [place] [address] [address] Isai Ruelas MALB CR RATIO 25.6 mg/g Normal 0.0-29.9 [facility] Comment on above: Performed By: #### M CRR #### [facility] [address] [place] [address] [address] Isai Ruelas MALB CR RATIO RANGE SEE BELOW Normal [facility] Comment on above: Result Comment: NO M ICROALBUMINURIA 0-29 MG/G CLINICAL MICROALBUMINURIA 30-300 MG/G MACROALBUMINURIA >300 MG/G Performed By: #### M CRR #### [facility] [address] [place] [address] [address] Isai Ruelas URINE CREAT 78.16 mg/dL Normal 20.00-300. 00 [facility] Comment on above: Performed By: #### M CRR #### [facility] [address] [place] [address] [address] Isai Ruelas PROF 14(COMP METB)on 023 Albumin [Mass/Vol] 3.8 g/dL Normal 3.4-5.0 [facility] Comment on above: Performed By: #### L IPID, TSH, CMP #### [facility] [address] [place] [address] Dr. Isai Ruelas Albumin/Globulin [Mass ratio] 0.9 {ratio} Normal [facility] Comment on above: Performed By: #### L IPID, TSH, CMP #### [facility] [address] [place] [address] Dr. Isia Ruelas ALP [Catalytic activity/Vol] 104 U/L Normal 46-116 [facility] Comment on above: Performed By: #### L IPID, TSH, CMP #### [facility] [address] [place] [address] Dr. Isai Ruelas ALT [Catalytic activity/Vol] 17 U/L Normal 14-59 [facility] Comment on above: Performed By: #### L IPID, TSH, CMP #### [facility] [address] [place] [address] Dr. Isai Ruelas Anion gap [Moles/Vol] 13.4 mmol/L Normal [facility] Comment on above: Performed By: #### L IPID, TSH, CMP #### [facility] [address] [place] [address] Dr. Isai Ruelas AST [Catalytic activity/Vol] 23 U/L Normal 15-37 [facility] Comment on above: Performed By: #### L IPID, TSH, CMP #### [facility] [address] [place] [address] [address] Isai Ruelas Bilirubin [Mass/Vol] 0.6 mg/dL Normal 0.2-1.0 [facility] Comment on above: Performed By: #### L IPID, TSH, CMP #### [facility] [address] [place] [address] [address] Isai Ruelas Calcium [Mass/Vol] 9.7 mg/dL Normal 8.5-10.1 [facility] Comment on above: Performed By: #### L IPID, TSH, CMP #### [facility] [address] [place] [address] [address] Isai Ruelas Chloride [Moles/Vol] 106 mmol/L Normal 98-107 [facility] Comment on above: Performed By: #### L IPID, TSH, CMP #### [facility] [address] [place] [address] Dr. Isai Ruelas CO2 [Moles/Vol] 26.4 mmol/L Normal 21.0-32.0 [facility] Comment on above: Performed By: #### L IPID, TSH, CMP #### [facility] [address] [place] [address] Dr. Isai Ruelas Creatinine [Mass/Vol] 0.67 mg/dL Normal 0.55-1.02 [facility] Comment on above: Performed By: #### L IPID, TSH, CMP #### [facility] [address] [place] [address] Dr. Isai Ruelas EGFR-AF ENGLISH >60 Normal >=60 [facility] Comment on above: Performed By: #### L IPID, TSH, CMP #### [facility] [address] [place] [address] Dr. Isai Ruelas EGFR-NON AF ENGLISH >60 Normal >=60 [facility] Comment on above: Performed By: #### L IPID, TSH, CMP #### [facility] [address] [place] [address] Dr. Isai Ruelas Globulin (S) [Mass/Vol] 4.3 g/dL Normal [facility] Comment on above: Performed By: #### L IPID, TSH, CMP #### [facility] [address] [place] [address] [address] Isai Ruelas Glucose [Mass/Vol] 95 mg/dL Normal 74-106 [facility] Comment on above: Performed By: #### L IPID, TSH, CMP #### [facility] [address] [place] [address] Dr. Isai Ruelas Potassium [Moles/Vol] 3.8 mmol/L Normal 3.5-5.1 [facility] Comment on above: Performed By: #### L IPID, TSH, CMP #### [facility] [address] [place] [address] Dr. Isai Ruelas Protein [Mass/Vol] 8.1 g/dL Normal 6.4-8.2 [facility] Comment on above: Performed By: #### L IPID, TSH, CMP #### [facility] [address] [place] [address] Dr. Isai Ruelas Sodium [Moles/Vol] 142 mmol/L Normal 136-145 [facility] Comment on above: Performed By: #### L IPID, TSH, CMP #### [facility] [address] [place] [address] Dr. Isai Ruelas Urea nitrogen [Mass/Vol] 15.0 mg/dL Normal 7.0-18.0 [facility] Comment on above: Performed By: #### L IPID, TSH, CMP #### [facility] [address] [place] [address] Dr. Isai Ruelas Urea nitrogen/Creatinine [Mass ratio] 22.4 mg/mg Normal [facility] Comment on above: Performed By: #### L IPID, TSH, CMP #### [facility] [address] [place] [address] Dr. Isai Ruelas TSHon 10-26-2022 TSH 1.671 uIU/mL Normal 0.358-3.[address] [facility] Comment on above: Performed By: #### L IPID, TSH, CMP #### [facility] [address] [place] [address] Dr. Isai Ruelas VIT B12 AND FOLATEon 023 Cobalamin (Vitamin B12) [Mass/Vol] 314.0 pg/mL Normal 193.0-986. 0 [facility] Comment on above: Performed By: #### B 12FOL, VITAD #### [facility] [address] [place] [address] Dr. Isai Ruelas FOLATE 21.40 ng/mL Normal 8.60-58.90 [facility] Comment on above: Performed By: #### B 12FOL, VITAD #### [facility] [address] [place] [address] Dr. Isai Ruelas VITAMIN D 25 OHon 10-26-2022 VIT D 25-OH 17.7 ng/mL Normal [facility] Comment on above: Performed By: #### B 12FOL, VITAD #### [facility] [address] [place] [address] Dr. Isai Ruelas VIT D RANGES SEE BELOW Normal [facility] Comment on above: Result Comment: <20 ng/mL Vit D deficient 20 - <30 ng/mL Vit D insufficient 30 - 100 ng/mL Vit D sufficient >100 ng/mL Potential Toxicity Performed By: #### B 12FOL, VITAD #### [facility] [address] [place] [address] Dr. Isai Ruelas A1C HEMOGLOBINon 07-20-2022 HbA1c (Bld) [Mass fraction] 5.7 % [employer] Other HbA1c (Bld) [Mass fraction]o n 07-20-2022 A1C HEMOGLOBIN [facility] Other CBC AUTO DIFFon 03-19-2022 BASO # 0.1 103/ul Normal 0.0-0.1 [facility] Comment on above: Performed By: #### C BC #### [facility] [address] [place] [address] Dr. Isai Ruelas Basophils/100 WBC (Bld) 0.6 % Normal 0.2-2.0 [facility] Comment on above: Performed By: #### C BC #### [facility] [address] [place] [address] Dr. Isai Ruelas EO # 0.1 103/ul Normal 0.0-0.7 [facility] Comment on above: Performed By: #### C BC #### [facility] [address] [place] [address] Dr. Isai Ruelas Eosinophils/100 WBC (Bld) 1.7 % Normal 0.9-7.0 [facility] Comment on above: Performed By: #### C BC #### [facility] [address] [place] [address] Dr. Isai Ruelas Erythrocyte distribution width (RBC) [Ratio] 13.0 % Normal 11.0-15.0 [facility] Comment on above: Performed By: #### C BC #### [facility] [address] [place] [address] Dr. Isai Ruelas Hematocrit (Bld) [Volume fraction] 40.9 % Normal 36.0-48.0 [facility] Comment on above: Performed By: #### C BC #### [facility] [address] [place] [address] Dr. Isai Ruelas Hemoglobin (Bld) [Mass/Vol] 13.3 g/dL Normal 12.0-16.0 [facility] Comment on above: Performed By: #### C BC #### [facility] [address] [place] [address] Dr. Isai Ruelas IG # 0.03 10e3/ul Normal 0.00-0.03 [facility] Comment on above: Performed By: #### C BC #### [facility] [address] [place] [address] Dr. Isai Ruelas IG % 0.4 % Normal 0.0-0.5 [facility] Comment on above: Performed By: #### C BC #### [facility] [address] [place] [address] Dr. Isai Ruelas LYMPH # 2.1 103/ul Normal 1.2-3.8 [facility] Comment on above: Performed By: #### C BC #### [facility] [address] [place] [address] Dr. Isai Ruelas Lymphocytes/100 WBC (Bld) 26.7 % Normal 20.5-60.0 [facility] Comment on above: Performed By: #### C BC #### [facility] [address] [place] [address] Dr. Isai Ruelas MANUAL DIFF REQ NO Normal [facility] Comment on above: Performed By: #### C BC #### [facility] [address] [place] [address] Dr. Isai Ruelas MCH (RBC) [Entitic mass] 30.9 pg Normal 26.7-34.0 [facility] Comment on above: Performed By: #### C BC #### [facility] [address] [place] [address] Dr. Isai Ruelas MCHC (RBC) [Mass/Vol] 32.5 g/dL Normal 29.9-35.2 [facility] Comment on above: Performed By: #### C BC #### [facility] [address] [place] [address] Dr. Isai Ruelas MCV (RBC) [Entitic vol] 94.9 fL Normal 81.0-99.0 [facility] Comment on above: Performed By: #### C BC #### [facility] [address] [place] [address] Dr. Isai Ruelas MONO # 0.8 103/ul Normal 0.3-0.8 [facility] Comment on above: Performed By: #### C BC #### [facility] [address] [place] [address] Dr. Isai Ruelas Monocytes/100 WBC (Bld) 10.6 % Normal 1.7-12.0 [facility] Comment on above: Performed By: #### C BC #### [facility] [address] [place] [address] Dr. Isai Ruelas NEUT # 4.6 103/ul Normal 1.4-6.5 [facility] Comment on above: Performed By: #### C BC #### [facility] [address] [place] [address] Dr. Isai Ruelas Neutrophils/100 WBC (Bld) 60.0 % Normal 43.0-75.0 [facility] Comment on above: Performed By: #### C BC #### [facility] [address] [place] [address] Dr. Isai Ruelas Platelet mean volume (Bld) [Entitic vol] 10.0 fL Normal 9.5-13.5 [facility] Comment on above: Performed By: #### C BC #### [facility] [address] [place] [address] Dr. Isai Ruelas PLT 283 103/ul Normal 150-450 [facility] Comment on above: Performed By: #### C BC #### [facility] [address] [place] [address] Dr. Isai Ruelas RBC 4.31 106/ul Normal 4.20-5.40 [facility] Comment on above: Performed By: #### C BC #### [facility] [address] [place] [address] Dr. Isai Ruelas WBC 7.7 103/ul Normal 4.0-11.0 [facility] Comment on above: Performed By: #### C BC #### [facility] [address] [place] [address] Dr. Isai Ruelas LIVER PROFILEon 03-19-2022 Albumin [Mass/Vol] 3.6 g/dL Normal 3.4-5.0 [facility] Comment on above: Performed By: #### B MP, LIVER #### [facility] [address] [place] [address] Dr. Isai Ruelas Albumin/Globulin [Mass ratio] 1.2 {ratio} Normal [facility] Comment on above: Performed By: #### B MP, LIVER #### [facility] [address] [place] [address] Dr. Isai Ruelas ALP [Catalytic activity/Vol] 109 U/L Normal 46-116 [facility] Comment on above: Performed By: #### B MP, LIVER #### [facility] [address] [place] [address] Dr. Isai Ruelas ALT [Catalytic activity/Vol] 20 U/L Normal 14-59 [facility] Comment on above: Performed By: #### B MP, LIVER #### [facility] [address] [place] [address] Dr. Isai Ruelas AST [Catalytic activity/Vol] 14 U/L Critically low 15-37 [facility] Comment on above: Performed By: #### B MP, LIVER #### [facility] [address] [place] [address] Dr. Isai Ruelas BILI, CONJUGATED 0.1 mg/dL Normal 0.0-0.2 [facility] Comment on above: Performed By: #### B MP, LIVER #### [facility] [address] [place] [address] Dr. Isai Ruelas Bilirubin [Mass/Vol] 0.4 mg/dL Normal 0.2-1.0 [facility] Comment on above: Performed By: #### B MP, LIVER #### [facility] [address] [place] [address] Dr. Isai Ruelas Globulin (S) [Mass/Vol] 3.1 g/dL Normal [facility] Comment on above: Performed By: #### B MP, LIVER #### [facility] [address] [place] [address] Dr. Isai Ruelas Protein [Mass/Vol] 6.7 g/dL Normal 6.4-8.2 [facility] Comment on above: Performed By: #### B MP, LIVER #### [facility] [address] [place] [address] Dr. Isai Ruelas PROF CHEM 8 (BAS METB)on Anion gap [Moles/Vol] 10.2 mmol/L Normal [facility] Comment on above: Performed By: #### B MP, LIVER #### [facility] [address] [place] [address] Dr. Isai Ruelas Calcium [Mass/Vol] 9.1 mg/dL Normal 8.5-10.1 [facility] Comment on above: Performed By: #### B MP, LIVER #### [facility] [address] [place] [address] [address] Isai Ruelas Chloride [Moles/Vol] 107 mmol/L Normal 98-107 [facility] Comment on above: Performed By: #### B MP, LIVER #### [facility] [address] [place] [address] [address] Isai Ruelas CO2 [Moles/Vol] 29.7 mmol/L Normal 21.0-32.0 [facility] Comment on above: Performed By: #### B MP, LIVER #### [facility] [address] [place] [address] [address] Isai Ruelas Creatinine [Mass/Vol] 0.68 mg/dL Normal 0.55-1.02 [facility] Comment on above: Performed By: #### B MP, LIVER #### [facility] [address] [place] [address] Dr. Isai Ruelas EGFR-AF ENGLISH >60 Normal >=60 [facility] Comment on above: Performed By: #### B MP, LIVER #### [facility] [address] [place] [address] Dr. Isai Ruelas EGFR-NON AF ENGLISH >60 Normal >=60 [facility] Comment on above: Performed By: #### B MP, LIVER #### [facility] [address] [place] [address] Dr. Isai Ruelas Glucose [Mass/Vol] 99 mg/dL Normal 74-106 [facility] Comment on above: Performed By: #### B MP, LIVER #### [facility] [address] [place] [address] Dr. Isai Ruelas Potassium [Moles/Vol] 3.9 mmol/L Normal 3.5-5.1 [facility] Comment on above: Performed By: #### B MP, LIVER #### [facility] [address] [place] [address] [address] Isai Ruelas Sodium [Moles/Vol] 143 mmol/L Normal 136-145 [facility] Comment on above: Performed By: #### B MP, LIVER #### [facility] [address] [place] [address] [address] Isai Ruelas Urea nitrogen [Mass/Vol] 21.0 mg/dL Critically high 7.0-18.0 [facility] Comment on above: Performed By: #### B MP, LIVER #### [facility] [address] [place] [address] [address] Isai Ruelas Urea nitrogen/Creatinine [Mass ratio] 30.9 mg/mg Normal [facility] Comment on above: Performed By: #### B MP, LIVER #### [facility] [address] [place] [address] [address] Isai Ruelas ED Note-Physicianon 03-02-20 ED [...] HabitsNo Data Available, Patient works at a [employer], Nonsmoker, no alcohol abuse. Problem list: No [...] Diagnosis Blister of left heel with infection ([id number] S90.822A, Discharge, Medical) Plan Condition: Stable. Disposition: Discharged: Time 02/21/17 16:41:00, to home. Prescriptions: Launch prescriptions Pharmacy:doxycycline hyclate 100 mg Tab (Prescribe): 100 = 1 mg tab(s), Oral, Daily, X 10 day(s), # 10 tab(s), Refills(s) 0. Patient was given the following educational materials: Wound Care, Uapm-vd-Eeae. Follow up with: [facility] In 3 [...] The case was discussed with: the physician recruitment assistant. Results interpretation: I agree with the documentation of the study interpretation. Normal [facility] Comment on above: Result Comment: Elec tronically Signed By: Desean Ivy PA-C\.br\Date and Time Signed: 02/21/17 16:47 EDT\.br\Electronically Co-Signed By: Joss Han MD\.br\Date and Time Co-Signed: 03/02/17 00:24 EDT Coding Summary.on 02-25-2017 Coding Summary. CODING DATE: 017 FINAL [facility] STATUS: Home (Routine DC) PAYOR: Commercial [...] Jessica Date Saved: 02/25/2017 01:18 pm Normal [facility] Coding Summary. CODING DATE: 017 FINAL [facility] STATUS: Home (Routine DC) PAYOR: Commercial [...] result in slightly different terminology. Coded By: iQng Jessica Date Saved: 02/25/2017 01:18 pm Normal [facility] ED Clinical Summaryon 2016 ED Clinical Summary (Inserted Image. Tammy ble to display) [place] [id number] ED Clinical SummaryPerson Information Name: [facility] Age[facility] 67 Years : 1950 12:00 AM Sex: Female Language:Latvian PCP: Shar Collado MD Marital Status: Visit [...] PM 02/21/2017 5:13 PM 02/21/2017 5:13 PM ADDRESS:[address] [place] [id number] [facility] DOC NOTES: MEDICAL INFORMATION: Prescriptions Given:Prescription Display doxycycline (doxycycline hyclate 100 mg Tab) 100 mg = 1 tab(s), Oral, Daily, X 10 day(s), # 10 tab(s), Refills(s) 0 PATIENT EDUCATION INFORMATION: Instructions:Wound Care, Taad-rf-Cper Follow up:With: Address: When: [address] [place] [address] [facility] ([facility] In 3 days 02/24/2017 Comments: Continue with [...] DIAGNOSIS:Blister of left heel with infection Normal [facility] ED Patient Education Noteon 02-21-2017 ED Patient [...] 08/22/2012 Document Reviewed: 10/04/2011ExitCare? Patient Information ?2015 [employer]. This information is not intended to replace advice given to you by your health care provider. Make sure you discuss any questions you have with your health care provider. Normal [facility] ED Patient Summaryon 017 ED Patient Summary (Inserted Image. Tammy ble to display) [place] [id number] Patient Discharge Instructions Person Information Name: BRANDEN AMES Age: 67 Years Date: 02/21/2017 4:24 PMDischarge Diagnosis: Blister of left heel with infection Primary Care Physician: Shar Collado MD Provider InformationPrimary Provider: Physician Staff Trainer:None The exam and treatment you received in the Emergency Department were for an urgent problem and are not intended as complete care. It is important that you follow up with a doctor, nurse practitioner, or physician?s recruitment assistant for ongoing care. If your symptoms become worse or you do not improve as expected and you are unable to reach your usual health care provider, you should return to the Emergency Department. We are available 24 hours a day. BRANDEN AMES has been given the following list of patient education materials, prescriptions and follow-up instructions: Follow-up Instructions:With: Address: When: [address] [place] [place] [address] [facility] ([facility] In 3 days 02/24/2017 Comments: Continue with [...] nearby participating provider. Patient Education Materials:Wound Care, Vjxg-ng-Dvee Medications Given:Medication Dose Route No medications found. Medication Information:New MedicationsPrinted Prescriptionsdoxycycline (doxycycline hyclate 100 mg Tab) 1 Tabs By Mouth every day for 10 Days. Refills: 0.Comment: Pharmacy Information: Thank you for choosing [facility] Patient Education Materials: Wound CareWound care [...] 08/22/2012 Document Reviewed: 10/04/2011ExitCare? Patient Information ?2014 [employer]. This information is not intended to replace advice given to you by your health care provider. Make sure you discuss any questions you have with your health care provider.KWAKU Mcnulty BETSY , have received the following patient education materials/instructions and have verbalized understanding: Patient Education Materials: Wound Care, Fjue-ky-Lnbi Follow-up Instructions: With: Address: When: [address] [employer] [place] [address] [facility] ([facility] In 3 days 02/24/2017 Comments: Continue with [...] Date Clinician/Nurse Signature Date 02/21/17 17:13:17 Normal [facility] Vital Signs Date Time Vital Sign Value Performing Clinician Moe campbell 02-21-2025 09:02-0400 Body height 154.94 cm Dottie DeWilde DO Work Phone: [facility] 02-21-2025 09:02-0400 Body mass index (BMI) [Ratio] 22.8 kg/m2 Dottie DeWilde DO Work Phone: [facility] 02-21-2025 09:02-0400 Body temperature 97.1 [degF] Dottie DeWilde DO Work Phone: [facility] 02-21-2025 09:02-0400 Body weight 54.88 kg Dottie DeWilde DO Work Phone: [facility] 02-21-2025 09:02-0400 Diastolic blood pressure 70 mm[Hg] Dottie DeWilde DO Work Phone: [facility] 02-21-2025 09:02-0400 Heart rate 72 /min Dottie DeWilde DO Work Phone: [facility] 02-21-2025 09:02-0400 Respiratory rate 18 /min Dottie DeWilde DO Work Phone: [facility] 02-21-2025 09:02-0400 SaO2% (BldA) [Mass fraction] 94 % Dottie DeWilde DO Work Phone: [facility] 02-21-2025 09:02-0400 Systolic blood pressure 120 mm[Hg] Dottie DeWilde DO Work Phone: [facility] 12-26-2024 14:22-0400 Diastolic blood pressure 66 mm[Hg] Dottie DeWilde DO Work Phone: [facility] 12-26-2024 14:22-0400 Heart rate 82 /min Dottie DeWilde DO Work Phone: [facility] 12-26-2024 14:22-0400 Systolic blood pressure 142 mm[Hg] Dottie DeWilde DO Work Phone: [facility] 11-29-2024 11:140400 Body height 154.94 cm Dottie DeWilde DO Work Phone: [facility] 11-29-2024 11:14-0400 Body mass index (BMI) [Ratio] 23.6 kg/m2 Dottie DeWilde DO Work Phone: [facility] 11-29-2024 11:14-0400 Body weight 56.69 kg Dottie DeWilde DO Work Phone: [facility] 11-29-2024 11:14-0400 Diastolic blood pressure 74 mm[Hg] Dottie DeWilde DO Work Phone: [facility] 11-29-2024 11:14-0400 Heart rate 88 /min Dottie DeWilde DO Work Phone: [facility] 11-29-2024 11:14-0400 Respiratory rate 16 /min Dottie DeWilde DO Work Phone: [facility] 11-29-2024 11:14-0400 SaO2% (BldA) [Mass fraction] 93 % Dottie DeWilde DO Work Phone: [facility] 11-29-2024 11:14-0400 Systolic blood pressure 118 mm[Hg] Dottie DeWilde DO Work Phone: [facility] 08-14-2024 11:21-0500 Body height 154.94 cm Blanca Swanson DO Work Phone: [facility] 08-14-2024 11:21-0500 Body mass index (BMI) [Ratio] 23.1 kg/m2 Christopher Syk DO Work Phone: [facility] 08-14-2024 11:21-0500 Body weight 55.56 kg Christopher Sky DO Work Phone: [facility] 08-14-2024 11:21-0500 Diastolic blood pressure 70 mm[Hg] Christopher Sky DO Work Phone: [facility] 08-14-2024 11:21-0500 Systolic blood pressure 118 mm[Hg] Christopher Sky DO Work Phone: [facility] 08-01-2024 11:42-0500 Body height 154.94 cm Christopher Sky DO Work Phone: [facility] 08-01-2024 11:42-0500 Diastolic blood pressure 60 mm[Hg] Christopher Sky DO Work Phone: [facility] 08-01-2024 11:42-0500 Heart rate 82 /min Christopher Sky DO Work Phone: [facility] 08-01-2024 11:42-0500 Respiratory rate 18 /min Christopher Sky DO Work Phone: [facility] 08-01-2024 11:42-0500 SaO2% (BldA) [Mass fraction] 97 % Christopher Sky DO Work Phone: [facility] 08-01-2024 11:42-0500 Systolic blood pressure 130 mm[Hg] Christopher Sky DO Work Phone: [facility] 07-24-2024 10:16-0500 Body height 154.94 cm Dottie DeWilde DO Work Phone: [facility] 07-24-2024 10:16-0500 Body mass index (BMI) [Ratio] 23.2 kg/m2 Dottie DeWilde DO Work Phone: [facility] 07-24-2024 10:16-0500 Body weight 55.84 kg Dottie DeWilde DO Work Phone: [facility] 07-24-2024 10:16-0500 Diastolic blood pressure 84 mm[Hg] Dottie DeWilde DO Work Phone: [facility] 07-24-2024 10:16-0500 Heart rate 80 /min Dottie DeWilde DO Work Phone: [facility] 07-24-2024 10:16-0500 Respiratory rate 18 /min Dottie DeWilde DO Work Phone: [facility] 07-24-2024 10:16-0500 SaO2% (BldA) [Mass fraction] 95 % Dottie DeWilde DO Work Phone: [facility] 07-24-2024 10:16-0500 Systolic blood pressure 132 mm[Hg] Dottie DeWilde DO Work Phone: [facility] 06-27-2024 09:45-0500 Diastolic blood pressure 65 mm[Hg] Dottie DeWilde DO Work Phone: [facility] 06-27-2024 09:45-0500 Heart rate 75 /min Dottie DeWilde DO Work Phone: [facility] 06-27-2024 09:45-0500 Systolic blood pressure 132 mm[Hg] Dottie DeWilde DO Work Phone: [facility] 05-24-2024 11:39-0500 Body height 157.5 cm La Mora MGMT SPECIALIST Work Phone: [facility] 05-24-2024 11:39-0500 Body mass index (BMI) [Ratio] 22.5 kg/m2 La Mora MGMT SPECIALIST Work Phone: [facility] 05-24-2024 11:39-0500 Body weight 55.79 kg La Mora MGMT SPECIALIST Work Phone: [facility] 05-24-2024 11:39-0500 Diastolic blood pressure 64 mm[Hg] La Mora MGMT SPECIALIST Work Phone: [facility] 05-24-2024 11:39-0500 Systolic blood pressure 118 mm[Hg] La Mora MGMT SPECIALIST Work Phone: [facility] 03-27-2024 11:16-0400 Body mass index (BMI) [Ratio] 22.06 kg/m2 Christopher Sky DO Work Phone: [facility] 03-27-2024 11:16-0400 Body weight 54.7 kg Christopher Sky DO Work Phone: [facility] 03-27-2024 11:16-0400 Diastolic blood pressure 78 mm[Hg] Christopher Sky DO Work Phone: [facility] 03-27-2024 11:16-0400 Systolic blood pressure 125 mm[Hg] Christopher Sky DO Work Phone: [facility] 07-22-2023 10:30-0500 Body height 151.13 cm [place] Other [employer] Other 07-22-2023 10:30-0500 Body mass index (BMI) [Ratio] 23.79 kg/m2 [place]za [place] Other [employer] Other 07-22-2023 10:30-0500 Body weight 54.34 kg Mar[place]za [place] Other [employer] Other 07-22-2023 10:30-0500 Diastolic blood pressure 68 mm[Hg] [place]za [place] Other [employer] Other 07-22-2023 10:30-0500 Respiratory rate 18 /min Maritza Ballesteros [employer] Other 07-22-2023 10:30-0500 SaO2% (BldA) [Mass fraction] 98 % Maritza Jaya Other [employer] Other 07-22-2023 10:30-0500 Systolic blood pressure 122 mm[Hg] [place]za [place] Other [employer] Other 07-20-2022 11:15-0500 Body height 151.13 cm Maritza Jaya Other [employer] Other 07-20-2022 11:15-0500 Body mass index (BMI) [Ratio] 24.11 kg/m2 Maritza Jaya Other [employer] Other 07-20-2022 11:15-0500 Body weight 55.07 kg Maritza Jaya Other [employer] Other 07-20-2022 11:15-0500 Diastolic blood pressure 70 mm[Hg] [place]za [place] Other [employer] Other 07-20-2022 11:15-0500 Respiratory rate 18 /min [place]za [place] Other [employer] Other 07-20-2022 11:15-0500 SaO2% (BldA) [Mass fraction] 98 % [place] Other [employer] Other 07-20-2022 11:15-0500 Systolic blood pressure 130 mm[Hg] [place] Other [employer] Other 06-19-2022 13:44-0500 Respiratory rate 18 /min Dottie DeWilde DO Work Phone: [facility] 06-19-2022 09:15-0500 Body temperature 97.7 [degF] Dottie DeWilde DO Work Phone: [facility] 06-19-2022 09:15-0500 SaO2% (BldA) [Mass fraction] 100 % Dottie DeWilde DO Work Phone: [facility] 05-30-2021 09:30-0500 Body height 160.02 cm Dottie DeWilde DO Work Phone: [facility] 05-30-2021 09:30-0500 Body mass index (BMI) [Ratio] 22.1 kg/m2 Dottie DeWilde DO Work Phone: [facility] 05-30-2021 09:30-0500 Body weight 56.7 kg Dottie DeWilde DO Work Phone: [facility] 04-18-2021 10:30-0400 Body height 151.13 cm [place] Other [employer] Other 04-18-2021 10:30-0400 Body mass index (BMI) [Ratio] 24.33 kg/m2 [place] Other [employer] Other 04-18-2021 10:30-0400 Body temperature 97.5 [degF] [place]za [place] Other [employer] Other 04-18-2021 10:30-0400 Body weight 55.57 kg Mar[place]za [place] Other [employer] Other 04-18-2021 10:30-0400 Diastolic blood pressure 70 mm[Hg] Maritza Jaya Other [employer] Other 04-18-2021 10:30-0400 Respiratory rate 18 /min Maritza Jaya Other [employer] Other 04-18-2021 10:30-0400 SaO2% (BldA) [Mass fraction] 98 % Maritza Jaya Other [employer] Other 04-18-2021 10:30-0400 Systolic blood pressure 120 mm[Hg] Maritza Jaya Other [place] [employer] Other Encounters Encounter Date Encounter Type Care Provider Facility Start: 02-21-2025 End: 02-21-2025 ambulatory Dottie Osmel KUMAR Work Phone: [facility] Work Phone: Start: 02-21-2025 End: 02-21-2025 Patient encounter procedure Dottie Jackiecarrie DO -[facility] Work Phone: Start: 12-26-2024 Registered Recurring Messi Robles DO -Infusion Therapy - O/P Work Phone: Start: 12-26-2024 ambulatory Blanca Masterson acility:[facility] Start: 12-07-2024 Non-patient / Non-visit [place] Mor[place] APRN-MEDICAL RECORDS COORDINATOR-C -[facility] [employer] Work Phone: Start: 11-29-2024 End: 11-29-2024 Patient encounter procedure La Mora APRN-MEDICAL RECORDS COORDINATOR-C -[facility] [place] Work Phone: Start: 08-14-2024 End: 08-14-2024 ambulatory Blanca Swanson DO Work Phone: [facility] Work Phone: Start: 08-14-2024 End: 08-14-2024 Patient encounter procedure Blanca Swanson DO Work Phone: [facility] Work Phone: Start: 08-01-2024 End: 08-01-2024 Departed Referred Blanca Swanson DO Work Phone: [facility] [place] Work Phone: Start: 08-01-2024 End: 08-01-2024 ambulatory Blanca Swanson DO Work Phone: [facility] Work Phone: Start: 08-01-2024 End: 08-01-2024 Patient encounter procedure Blanca Swanson DO Work Phone: [facility] [place] Work Phone: Start: 07-24-2024 End: 07-24-2024 ambulatory Dottie Mejiae DO Work Phone: [facility] Work Phone: Start: 07-24-2024 End: 07-24-2024 Patient encounter procedure Dottie Mejiae DO Work Phone: [facility] [place] Work Phone: Start: 06-27-2024 Registered Recurring Dottie Robert Biggskellie DO Work Phone: [facility]-Infusion Therapy - O/P Work Phone: Start: 05-24-2024 End: 05-24-2024 Bamboo flowsheet La Mora MGMT SPECIALIST Work Phone: [facility] [address] Start: 05-24-2024 End: 05-24-2024 Bamboo flowsheet La Mora MGMT SPECIALIST Work Phone: [facility] [address] Start: 05-24-2024 End: 05-24-2024 Office outpatient visit 15 minutes La Mora MGMT SPECIALIST Work Phone: [facility] [address] Comment [...] encounter procedure Dottie Bolivar DO Work Phone: [facility] [place] Work Phone: Start: 04-25-2024 End: 04-25-2024 ambulatory Dottie Bolivar DO Work Phone: [facility] Work Phone: Start: 03-27-2024 End: 03-27-2024 Bamboo flowsheet Blanca Swanson DO Work Phone: [facility] [address] Start: 03-27-2024 End: 03-27-2024 Bamboo flowsheet Blanca Swanson DO Work Phone: [facility] [address] Start: 03-27-2024 End: 03-27-2024 Clinisync Result Encounter La Mora MGMT SPECIALIST Work Phone: [facility] External Department Unsolicited Start: 03-27-2024 Non-patient / Non-visit Dottie Bolivar DO Work Phone: [facility] Work Phone: Start: 03-27-2024 End: 03-27-2024 ambulatory BLANCA SWANSON Not Available Start: 03-27-2024 End: 03-27-2024 Office outpatient visit 25 minutes Christopher Sky DO Work Phone: [facility] [address] Comment on above: Multiple sclerosis ( CMS/HCC) (Primary Dx); Anisocoria Start: 12-06-2023 End: 12-06-2023 ambulatory LA MORA Not Available Start: 07-22-2023 End: 07-22-2023 ambulatory [place]za [place] Other [employer] Other Start: 07-22-2023 Patient encounter procedure Maritza Lake [facility] Start: 10-26-2022 End: 10-27-2022 ambulatory MARITZA LAKE Facility:[facility] Start: 07-20-2022 End: 07-20-2022 ambulatory Maritza [place] Other [employer] Other Start: 07-20-2022 Office outpatient visit 25 minutes Maritza [place] [facility] Start: 03-19-2022 End: 03-20-2022 ambulatory MARITZA LAKE Facility:[facility] Start: 03-16-2022 End: 03-16-2022 ambulatory Mar[place]za [place] Other [employer] Other Start: 03-16-2022 Telephone encounter Maritza Jaya [facility] Start: 01-11-2022 End: 01-11-2022 ambulatory Mar[place]za [place] Other [employer] Other Start: 01-11-2022 Telephone encounter Maritza Romainle [facility] Start: 06-24-2021 End: 06-24-2021 ambulatory [place]za [place] Other [employer] Other Start: 06-24-2021 Telephone encounter Maritza Jaya [facility] Start: 05-05-2021 End: 05-05-2021 ambulatory Mar[place]za [place] Other [employer] Other Start: 05-05-2021 Telephone encounter Maritza Masterson [facility] [place] Start: 05-01-2021 End: 05-01-2021 ambulatory [place]za [place] Other [employer] Other Start: 05-01-2021 Telephone encounter Maritza Masterson [facility] Start: 04-28-2021 End: 04-28-2021 ambulatory [place]za [place] Other [employer] Other Start: 04-28-2021 Telephone encounter Maritza Masterson [facility] Start: 04-18-2021 End: 04-18-2021 ambulatory Mar[place]za [place] Other [employer] Other Start: 04-18-2021 Office outpatient visit 25 minutes Maritza Lake [facility] Start: 02-21-2017 End: 02-21-2017 Emergency department patient visit [facility] Facility:[facility] Procedures Date Procedure Procedure Detail Performing Clinician [...] [address] [place] [address] La Mora NP [address] [place] [address] [facility] [address] Start: 05-24-2024 End: 05-24-2024 Patient encounter procedure [facility] [address] Comment on above: Arrived Start: 03-27-2024 End: 03-27-2025 MR Brain WO and W contrast IV MR brain w and wo contrast routine Imaging Routine Multiple sclerosis (CMS/HCC) Expected: 03/27/2024, Expires: 03/27/2025 [facility] Work Phone: Comment on above: Expected: 03/27/2024 , Expires: 03/27/2025 Start: 02-13-2024 Influenza vaccination Influenza Vacc ine (#1) [facility] Start: 05-11-2021 Screening for malign ant neoplasm of colon [facility] Start: 02-06-2017 Pneumococcal Vaccine : 65+ Years (1 of 1 - PCV) Pneumococcal Vaccine: 65+ Years (1 of 1 - PCV) [facility] Start: 1992 Screening for malign ant neoplasm of breast Mammogram [facility] Start: 1952 Screening for malign ant neoplasm of colon [facility] Immunizations Immunization Date Immunization Notes Care Provider Fa paulino 07-24-2024 Pneumococcal Conjuga te Vaccine, 20 valent Dottie Bolivar DO Work Phone: [facility] 09-12-2020 influenza, seasonal, injectable [place]za [place] Other [facility] 09-12-2020 influenza virus vaccine, unspecified formulation La Mora NP Work Phone: [facility] 04-26-2020 zoster vaccine, live Pradip Lake Other [facility] Payers Date Payer Category Payer Medicare (Managed Care) [employer] [id number] 2023 Self-pay 2021 Unknown [id number] 2021 Unknown [id number] 1957 Medicare [id number] 1959 Unknown [id number] 1952 Unknown [id number] [id number] 1952 Unknown [id number] [id number] 1952 Unknown [id number]. [id number] 1952 Unknown [id number] [id number] 1952 Unknown [id number] [id number] Unknown [id number]. [id number] Unknown [id number]. [id number] Unknown [id number] [id number] Social History Date Type Detail Facility Start: 12-06-2023 End: 05-24-2024 Sex Assigned At [facility] Other Start: 04-27-2018 End: 12-06-2023 Tobacco smoking status [facility] Smokes tobacco daily [facility] History of [...] Tobacco smoking stat us NHIS Smoker (finding) [facility] Start: 04-26-2024 Sex Patient sex un known (finding) [facility] Start: 1950 Sex Assigned At Female F [facility] Start: 07-24-2024 End: 08-14-2024 Sex Female (finding) [facility] Goals Date Patient Goal Desired Activity /State [...] annual wellness visit, subsequent noneactive February 8:58am [facility] Work Phone: 1(745) 331-984302-10-2025 Evaluation note* Diagnosis Onset Date Resolution Status Admit Date Actinic keratoses acute uar 2024 10:04am Prediabetes acute July 10:04am Seborrheic keratoses acute ua2024 10:04am Colon cancer screening declined noneactive July 24 10:04am Breast cancer screening declined noneactive July 24 10:04am Medicare annual wellness visit, subsequent noneactive July 24, 2024 10:04am Influenza vaccination declined noneactive July 24 10:04am [facility] Work Phone: 1(942) 511-795102-10-2025 Evaluation note* Diagnosis Onset Date Resolution Status [...] Seborrheic keratoses acute Febr uary 2024 11:16am [facility] Work Phone: [phone]) 347-261011-15-2024 Telephone encounter Note* Telephone Encounter - Azucena Moreira - 04/28/2024 1:14 PM EST Received no attempts. [facility] [id number] Miscellaneous Notes* Telephone Encounter - Azucena Moreira - 04/28/2024 1:14 PM EST Received no attempts. documented in this encounterUniversity of [facility] Health [id number] History of Present illness Narrative* Blanca Swanson [...] wrist extensors , wrist flexor , and mine expert strength 5/5. LUE strength deltoid , biceps , triceps , wrist extensors , wrist flexor , and mine expert strength 5/5. Trace weakness. RLE strength iliopsoas, [...] reflex 2+. LLE Knee reflex 2+. Coordination: [id number] testing normal. Rapid alternating movements are normal. Gait: Normal. Review and summary of old records: Labs from 03/19/22: CBC unremarkable with ALC of 2100; CMP unremarkable Laboratory evaluation at [place] showed unremarkable hepatitis and CBC panels. However, CMP showedelevated K and BUN (PCP reviewing) [place] of the [place] with and [place] [facility] Moderately diffuse demyelinating disease bilaterally. A small focus of active demyelination in the right occipital region. No acute infarct or hydrocephalus. MRI of the cervical spine with and without contrast on 04/22/21 at [facility]: A newly developing demyelinating plaque at the level of C5. No abnormal postcontrast enhancement in this lesion. Redemonstration of small demyelinating plaque at C3/4 on the right. Similar to prior study. Moderate cervical spondylosis MRI of the brain without contrast at [facility] on 07/17/19: Multifocal demyelinating plaques consistent with MS. No evidence of restricted diffusion to suggest active demyelination. Cortically based gliosis and encephalomalacia within the posterior and lateral aspect of the left parietal lobe suggesting a remote infarct. Age-related atrophy without evidence of focal atrophy. MRI of the cervical spine at [facility] on 08/03/19: Hyperintense lesions within the cervical cord atthe level of C3/4 and patchy signal noted anteriorly in the cord at C5 and at C7 vertebral bodies. These are presumed to be demyelinating. Multilevel facet and uncovertebral degenerative changes at multiple levels. MRI of the thoracic spine at [facility] on 08/04/19:12 mm T2 hyperintense lesion within [...] evaluation negative, BETTY antibody POSITIVE Vitamin D: [id number] asked to replace Tuberculosis Gold: Negative Dx: 2006 Brain MRI at [facility] in 2009: Demyelinating disease with worsening interval change when compared to MRI from 2007. Assessment/Plan Diagnoses and all orders for this visit: Multiple sclerosis ([facility]) It is my impression that the patient [...] new or worsening symptoms. documented in this encounterUniversity of Missouri Health [id number] Evaluation note* Encounter Date Diagnosis Assessment Notes Treatment Notes Treatment Clinical Notes Jul, Medicare annual wellness visit, subsequent (ICD-10 - Z00.00) Personalized health advice was given to the beneficiary including a written plan for screenings discussed and provided. Advanced care planning reviewed and/or information given as requested. The above visit was performed by Donna NAZARIO, under direct supervision of Maritza Lake,DNP,TIRE AND LUBE TECHNICIAN,STREET LIGHT SERVICER SUPERVISOR. Document reviewed and amended by provider signed [...] history of colon cancer. Cologuard ordered today. [employer] Other 02-06-2023 Evaluation note* Encounter Date Diagnosis [...] history of colon cancer. Cologuard ordered today. [employer] [facility] Other 07-31-2022 Evaluation note* Encounter Date Diagnosis Assessment Notes Treatment Notes Treatment Clinical Notes Dec, Prediabetes (ICD-10 - R73.03) [employer] [facility] [facility] Other 01-11-2022 Evaluation note* Encounter Date Diagnosis Assessment Notes Treatment Notes Treatment Clinical Notes Jun, Hyperkalemia (ICD-10 - E87.5) Jun, Elevated BUN (ICD-10 - R79.9) [employer] [facility] [facility] Other 11-18-2021 Evaluation note* Encounter Date Diagnosis Assessment Notes Treatment Notes Treatment Clinical Notes Apr, Screening for colon cancer (ICD-10 - Z12.11) [employer] [facility] Other 11-15-2021 Evaluation note* Encounter Date Diagnosis Assessment Notes Treatment Notes Treatment Clinical Notes Apr, High blood sugar (ICD-10 - R73.9) Apr, Hypokalemia (ICD-10 - E87.6) [employer] [facility] Other 11-05-2021 Evaluation note* Encounter Date Diagnosis [...] (ICD-10 - G35) see above treatment plan. [employer] Other Evaluation noteNo [place] [facility] Other Evaluation note* Diagnosis Multiple sclerosis (CMS/HCC)- Primary Multiple sclerosis Anisocoria documented in this encounter [facility] HealthcareEvaluation noteNo assessment information availableAv[facility] Work Phone: Evaluation note* Diagnosis Multiple sclerosis (CMS/HCC)- Primary Multiple sclerosis Cognitive dysfunction Unspecified persistent mental disorders due to conditions classified elsewhere Encounter for medication monitoring Encounter for therapeutic drug monitoring Anisocoria Noncompliance documented in this encounter [facility] HealthcareEvaluation note* Diagnosis Onset Date Resolution Status Admit Date Prediabetes acute July 10:04am Colon cancer screening declined noneactive July 24 10:04am Breast cancer screening declined noneactive July 24 10:04am Medicare annual wellness visit, subsequent noneactive July 24, 2024 10:04am [facility] Work Phone: History general Narrative - Reported* Type Description Date Medical History hypertension Medical History high cholesterol Medical History cigarette abuse Medical History coronary artery disease Surgical History STENT PUT IN 2002 Surgical History TONSILS REMOVED Surgical History cataract surgery 11/2020 Hospitalization History SEE ABOVE [employer] Other Reason for referral (narrative)No reason for referral information availableAultman [facility] Work Phone: Summary Purpose Family History [...] and content) DATE CREATED AUTHOR 12/08/2017 Sylvester Ware [facility] DATE CREATED AUTHOR AUTHOR'S ORGANIZ ATION 10/27/2022 [facility] DATE CREATED AUTHOR AUTHOR'S ORGANIZ ATION 05/27/2024 [facility] EPIC DATE CREATED AUTHOR AUTHOR'S ORGANIZ ATION 03/19/[address] [facility] ys[facility] Group REASON FOR VISIT (unrecogniz ed [...] April 25, 2024 End: April 25, 2024 Psychologist Relationship Specialty Start Date End Date Maritza Lake NP [address] [facility] [place] [address] 11/15/23 Psychologist Relationship Specialty Start Date End Date Maritza Lake NP [address] [place] [address] 11/15/23 Psychologist Relationship Specialty Start Date End Date Maritza Lake NP [address] [facility] [place] [address] 11/15/23 Team Status: Active Member Role Status Dates Dottie Bolivar DO Primary Care Provider Active Start: March 27, 2024 La Mora , TIRE AND LUBE TECHNICIAN-MEDICAL RECORDS COORDINATOR-C Attending Provider Active Start: March 27, 2024 Psychologist Relationship Specialty Start Date End Date Maritza Lake NP [address] [facility] [place] [address] 11/15/23 Psychologist Relationship Specialty Start Date End Date Maritza Lake NP [address] [place] [address] 11/15/23 Team Status: Inactive Member Role Status [...] ON THE PRIMARY CLINICAL RECORDS. [facility]. provides no warranty or guarantee of the accuracy or completeness of information in this document.
[2025-03-26 10:03] LABS: Microalbum Creatinine Ratio Ur 16.2 mg/g (0.0-29.9)
== END 2025-03-26 09:08 | disposition home or self-care (01) ==
LOC: LAB 09:07
PROVIDERS: PCP Nurse Practitioner Family; Visit Provider Student in an Organized Health Care Education/Training Program
DX: E78.2 Mixed hyperlipidemia (principal); E55.9 Vitamin D deficiency, unspecified; R73.03 Prediabetes; I10 Essential (primary) hypertension
CPT/HCPCS: 82043; 82570